=== PATIENT | male | born 1965 | race Caucasian/White ===

== ENCOUNTER 2020-05-23 18:39 | Outpatient (REF) | payer MEDICARE, MEDICAID, SELFPAY | END 2020-05-23 18:40 | disposition home or self-care (01) | LOC: HO.LAB 18:39 | PROVIDERS: PCP Internal Medicine; Visit Provider Internal Medicine | DX: Z20.828 Contact with and (suspected) exposure to other viral communicable diseases (principal) | CPT/HCPCS: 36415; 87635 ==

== ENCOUNTER 2020-07-26 08:32 | Outpatient (REF) | payer MEDICARE, MEDICAID, SELFPAY ==
--- NOTE | 2020-07-26 11:10 | MHC.AU.P13 ---
Adult Audiological Evaluation Date of Visit: 07/26/20 Reason for Appointment: Annual audiological re-evaluation to monitor the status of Mr. Fuentes's hearing loss. He reports that his hearing seems slightly worse. He denies any significant changes to his medical history. Previous Hearing Test Results: [facility] [place], [place], 08/06/2019- Severe sloping to profound and rising to moderate mixed hearing loss bilaterally. Ear History: Recent Ear Drainage: Both Ears Recent Ear Infections: Both Ears Hearing Instrument History- Right Ear: Auger Mill Operator: Phonak Model: Heaven V50-UP Serial Number: [id number] Battery Size: 675 Warranty: Dispensed By: [facility] Date of Fittin01/29/2017 Hearing Instrument History- Left Ear: Auger Mill Operator: Phonak Model: Heaven V50-UP Serial Number: [id number] Battery Size: 675 Warranty: Dispensed By: [facility] Date of Fittin01/29/2017 Otoscopy: Right Ear: [place], bulging TM. Some clear drainage. Left Ear: [place], bulging TM. Some clear drainage. Tympanometry: Right Ear: Non-compliant Middle Ear System (Type B) Left Ear: Non-compliant Middle Ear System (Type B) Hearing Evaluation: Transducer(s) Used: Insert Earphones, Bone Conduction Method: Conventional Audiometry Stimuli Used: Pure Tones Right Ear: Description of Hearing: Moderately severe hearing loss at 250 Hz, sloping to a severe mixed hearing loss at 500 Hz and profound mixed hearing loss from 750-2000 Hz, rising to a severe mixed hearing loss from 4786-6780 Hz, a moderately severe hearing loss at 6000 Hz, and a moderate hearing loss at 8000 Hz. Left Ear: Description of Hearing: Severe mixed hearing loss at 250-500 Hz, sloping to a profound mixed hearing loss from 750-4000 Hz, rising to a moderately severe hearing loss at 6000 Hz, and a moderate hearing loss at 8000 Hz. Speech Recognition Threshold (SRT): Method Used: Monitored Live Voice Stimuli Used: Spondee Words Right Ear: 75 dBHL Left Ear: 85 dBHL Word Discrimination: Method: Recorded Lists Word Lists Used: NU-6 Right Ear: 80% at 105 dBHL Left Ear: 76% at 105 dBHL Comparison: Compared to the most recent evaluation: Thresholds have decreased in the left ear. Middle ear dysfunction persists bilaterally. Word discrimination scores have decreased bilaterally. Compared to most recent evaluation: Thresholds have worsened by 10-15 dBHL from 2515-8554 Hz in the left ear. Recommendations: Recommendations: Audiological re-evaluation if changes are noted. Audiological re-evaluation in one year. See Hearing Aid Follow-Up note for more information. Hearing aid(s) reprogrammed with updated test results. Diagnosis: Primary Diagnosis: H90.6 Mixed Hearing Loss, Bilateral Services Performed: Services Performed: Comprehensive Audiological Evaluation (CPT 96622) Tympanometry (CPT 19819) Signature: Provider: Antonella Caldera, CCC-A
== END 2020-07-26 08:33 | disposition home or self-care (01) ==
LOC: HO.SH 08:32
PROVIDERS: Visit Provider Internal Medicine
DX: H90.6 Mixed conductive and sensorineural hearing loss, bilateral (principal)
CPT/HCPCS: 92557; 92567; 92593; 99499; V5266

== ENCOUNTER 2020-09-08 19:54 | Emergency (ER) | payer MEDICARE, MEDICAID, SELFPAY ==
[2020-09-08 20:00] VITALS: BP 110/58; PULSE 75; RESP 14; TEMP 36.4; O2SAT 98
--- NOTE | 2020-09-08 21:01 | PC.NURSE ---
PT TO ED VIA AMBULANCE WITH C/O PULLING OUT G-TUBE MD IN ROOM FOR EVAL. CALLING [facility] FOR DETAILS OF G-TUBE. VS OBTAINED. MD AT BEDSIDE.
--- NOTE | 2020-09-08 21:29 | ED.WOUNDLAC ---
HPI - Wound/Laceration General Chief Complaint: Wound/Laceration <Kiesha Edmonds NP - Last Filed: 09/08/20 22:15> Stated Complaint: Wound <Kiesha Edmonds NP - Last Filed: 09/08/20 22:15> Time Seen by Provider: 09/08/20 21:20 <Kiesha Edmonds NP - Last Filed: 09/08/20 22:15> Source: patient <Kiesha Edmonds NP - Last Filed: 09/08/20 22:15> Mode of arrival: ambulatory <Kiesha Edmonds NP - Last Filed: 09/08/20 22:15> Limitations: no limitations <Kiesha Edmonds NP - Last Filed: 09/08/20 22:15> History of Present Illness HPI narrative: 55-year-old male from a assisted here with left ear pain. The patient tells me that he is wearing his mask for long hours during the day as he is required to wear at the assisted when he is outside in his bedroom. He tells me about 2 months ago he noticed some pain above his left ear. That has continued and now he has a wound which has been there for greater than 1 month. He denies any fevers or chills. He does tell me that he has some drainage from the wound. <Kiesha Edmonds NP - Last Filed: 09/08/20 22:15> Onset (ago): month(s) <Kiesha Edmonds NP - Last Filed: 09/08/20 22:15> Location: other (left ear ) <Kiesha Edmonds NP - Last Filed: 09/08/20 22:15> Patient tetanus UTD: Yes <Kiesha Edmonds NP - Last Filed: 09/08/20 22:15> Associated symptoms: none <Kiesha Edmonds NP - Last Filed: 09/08/20 22:15> Related Data Home Medications: Previous Rx's Medication Instructions Recorded bacitracin 1 appl TOPICAL TID #14 g 09/08/20 cephalexin 500 mg PO Q8H #21 cap 09/08/20 <Kiesha Edmonds NP - Last Filed: 09/08/20 22:15> Allergies/Adverse Reactions: Allergies Allergy/AdvReac Type Severity Reaction Status Date / Time No Known Allergies Allergy Verified 09/08/20 21:29 <Kiesha Edmonds NP - Last Filed: 09/08/20 22:15> Review of Systems Review of Systems: Yes all other systems are reviewed and are negative <Kiesha Edmonds NP - Last Filed: 09/08/20 22:15> Constitutional: Constitutional: Reports no additional constitutional complaints, Denies body ache(s), Denies chills, Denies fever(s), Denies headache(s) and Denies weakness <Kiesha Edmonds NP - Last Filed: 09/08/20 22:15> Eyes: Eyes: Reports no additional eye complaints and Denies change in vision <Kiesha Edmonds NP - Last Filed: 09/08/20 22:15> ENT: Reports system reviewed and no additional complaints, except as documented, Denies dizziness, Denies headache(s), Denies nasal congestion, Denies nasal discharge and Denies neck pain <Kiesha Edmonds NP - Last Filed: 09/08/20 22:15> Cardiovascular: Cardiovascular: Reports no additional cardiovascular complaints, Denies chest pain, Denies leg edema and Denies dyspnea <Kiesha Edmonds NP - Last Filed: 09/08/20 22:15> Respiratory: Respiratory: Reports no additional respiratory complaints, Denies cough and Denies dyspnea <Kiesha Edmonds NP - Last Filed: 09/08/20 22:15> Gastrointestinal: Gastrointestinal: Reports no additional gastrointestinal complaints, Denies abdominal pain, Denies diarrhea, Denies nausea and Denies vomiting <Kiesha Edmonds NP - Last Filed: 09/08/20 22:15> Genitourinary: Genitourinary: Denies urinary incontinence <Kiesha Edmonds NP - Last Filed: 09/08/20 22:15> Musculoskeletal: Musculoskeletal: Reports no additional musculoskeletal complaints, Denies back pain, Denies arthralgias, Denies joint swelling, Denies neck pain, Denies numbness and Denies tingling <Kiesha Edmonds NP - Last Filed: 09/08/20 22:15> Integumentary/Breasts: Skin/Breast: Reports system reviewed and no additional complaints, except as docu, Denies rash and Reports wounds <Kiesha Edmonds NP - Last Filed: 09/08/20 22:15> Neurologic: Reports system reviewed and no additional complaints, except as documented, Denies Abnormal speech present, Denies dizziness, Denies headache(s), Denies numbness, Denies tingling and Denies weakness <Kiesha Edmonds NP - Last Filed: 09/08/20 22:15> [facility] Past Medical History Attestation statement: The following information was validated with the patient. <Kiesha Edmonds NP - Last Filed: 09/08/20 22:15> Source: old records reviewed and nursing notes reviewed <Kiesha Edmonds NP - Last Filed: 09/08/20 22:15> Social History Social History: Social History Advance Directives: No Advance Directives Information Provided: No <Kiesha Edmonds NP - Last Filed: 09/08/20 22:15> Physical Exam Vital Signs: Vital Signs: Last Vital Signs Temp 97.6 F 09/08/20 20:00 Pulse 75 09/08/20 20:00 Resp 14 09/08/20 20:00 BP 110/58 L 09/08/20 20:00 Pulse Ox 98 09/08/20 20:00 <Kiesha Edmonds NP - Last Filed: 09/08/20 22:15> Vital Signs: Last Vital Signs Temp 97.6 F 09/08/20 20:00 Pulse 75 09/08/20 20:00 Resp 14 09/08/20 20:00 BP 110/58 L 09/08/20 20:00 Pulse Ox 98 09/08/20 20:00 <Yariel Childs MD - Last Filed: 09/19/20 16:52> Const: General: cooperative, healthy appearing, comfortable and no acute distress <Kiesha Edmonds NP - Last Filed: 09/08/20 22:15> Orientation/consciousness: patient oriented x3 <Kiesha Edmonds NP - Last Filed: 09/08/20 22:15> Limitations: no limitations <Kiesha Edmonds NP - Last Filed: 09/08/20 22:15> HENMT: Other: Just above the helix where the ear meets the side of the head there is an open area with some serous drainage and or purulent drainage at the site. There is mild erythema and tenderness. No tracking or fluctuance or induration. <Kiesha Edmonds NP - Last Filed: 09/08/20 22:15> Head: Yes normal to inspection <Kiesha Edmonds NP - Last Filed: 09/08/20 22:15> Ears: hearing grossly normal bilaterally <Kiesha Edmonds NP - Last Filed: 09/08/20 22:15> General nose exam: Normal external nose present <Kiesha Edmonds NP - Last Filed: 09/08/20 22:15> Face and sinus: Yes normal facial exam <Kiesha Edmonds NP - Last Filed: 09/08/20 22:15> Mouth: Normal oral and palatal mucosa present <Kiesha Edmonds NP - Last Filed: 09/08/20 22:15> Throat: Yes posterior oropharynx normal <Kiesha Edmonds NP - Last Filed: 09/08/20 22:15> Eyes: General: appearance normal, both eyes and all related structures <Kiesha Edmonds NP - Last Filed: 09/08/20 22:15> Pupils: Equal, round and reactive pupils present <Kiesha Edmonds NP - Last Filed: 09/08/20 22:15> Neck: Neck: Yes normal visual inspection <Kiesha Edmonds NP - Last Filed: 09/08/20 22:15> Chest: Chest palpation & inspection: normal inspection of the chest <Kiesha Edmonds NP - Last Filed: 09/08/20 22:15> Resp: Effort & Inspection: normal respiratory effort <Kiesha Edmonds NP - Last Filed: 09/08/20 22:15> Auscultation: clear to auscultation bilaterally <Kiesha Edmonds NP - Last Filed: 09/08/20 22:15> Cardio: Rate: regular rate <Kiesha Edmonds NP - Last Filed: 09/08/20 22:15> Rhythm: regular rhythm <Kiesha Edmonds NP - Last Filed: 09/08/20 22:15> Peripheral pulses: Peripheral pulses 2+ throughout <Kiesha Edmonds SOCCER REFEREE - Last Filed: 09/08/20 22:15> GI: Inspection: Yes normal to inspection <Kiesha Edmonds SOCCER REFEREE - Last Filed: 09/08/20 22:15> Palpation (GI): Soft to palpation and nontender <Kiesha Edmonds NP - Last Filed: 09/08/20 22:15> Auscultation: normal bowel sounds <Kiesha Edmonds SOCCER REFEREE - Last Filed: 09/08/20 22:15> Back/Spine/Pelvis: Thoracic/Lumbar Spine: thoracic and lumbar spine normal to inspection <Kiesha Edmonds SOCCER REFEREE - Last Filed: 09/08/20 22:15> Skin: General skin exam: no rashes or lesions noted <Kiesha Edmonds NP - Last Filed: 09/08/20 22:15> Neuro: General: patient oriented x3, no focal motor deficits and normal sensation to monofilament <Kiesha Edmonds SOCCER REFEREE - Last Filed: 09/08/20 22:15> Cranial nerves: Yes Equal, round and reactive pupils present <Kiesha Edmonds SOCCER REFEREE - Last Filed: 09/08/20 22:15> Cognition (Neuro): normal cognition <Kiesha Edmonds SOCCER REFEREE - Last Filed: 09/08/20 22:15> Speech: No Abnormal speech present <Kiesha Edmonds NP - Last Filed: 09/08/20 22:15> Gait exam (Neuro): Normal gait present <Kiseha Edmonds NP - Last Filed: 09/08/20 22:15> Motor exam (neuro): 5/5 motor strength present throughout <Kiesha Edmonds SOCCER REFEREE - Last Filed: 09/08/20 22:15> Extrem: General: Yes normal to inspection <Kiesha Edmonds NP - Last Filed: 09/08/20 22:15> Course Course Course Narrative: Patient has a draining wound at the site of where his mask meets his posterior ear. There is some local drainage, tenderness and erythema. Staff was concerned that the patient would need closure of the wound with sutures. However, the patient tells me he has had this wound for weeks to months and so closure of this infected wound is not indicated. Start patient on topical antibiotics and oral antibiotics. Reviewed worrisome signs and symptoms and when to return to the emergency department. Comfortable discharge home. <Kiesha Edmonds NP - Last Filed: 09/08/20 22:15> I have reviewed the chart <Yariel Childs MD - Last Filed: 09/19/20 16:52> Discharge Plan Discharge Clinical Impression: Cellulitis <Kiesha Edmonds NP - Last Filed: 09/08/20 22:15> Patient Disposition: Home, Self-Care <Kiesha Edmonds NP - Last Filed: 09/08/20 22:15> Instructions: Cellulitis (ED) <Kiesha Edmonds NP - Last Filed: 09/08/20 22:15> Additional Instructions: Apply topical antibiotic ointment Take the antibiotic until resolved. Avoid using masks that rub on this area We will not close a wound that has been open this long. It will heal on its own <Kiesha Edmonds NP - Last Filed: 09/08/20 22:15> Prescriptions: New bacitracin 500 unit/gram ointment 1 appl topical TID Qty: 14 RF: 0 cephalexin 500 mg capsule 500 mg PO Q8H Qty: 21 RF: 0 <Kiesha Edmonds NP - Last Filed: 09/08/20 22:15> Referrals: Physician,Unknown [Primary Care Provider] - 2 days <Kiesha Edmonds NP - Last Filed: 09/08/20 22:15> Discharge Date/Time: 09/08/20 21:56 <Kiesha Edmonds NP - Last Filed: 09/08/20 22:15>
--- NOTE | 2020-09-08 21:48 | PC.NURSE ---
spoke with Pedro for update. [phone]. pt getting d/c at this time.
== END 2020-09-08 21:56 | disposition home or self-care (01) ==
LOC: HO.ED 21:34
PROVIDERS: Emergency Provider Emergency Medicine
DX: H60.12 Cellulitis of left external ear (principal); H92.02 Otalgia, left ear; Z79.899 Other long term (current) drug therapy
CPT/HCPCS: 99282; 99283

== ENCOUNTER 2020-09-29 11:21 | Outpatient (REF) | payer MEDICARE, MEDICAID, SELFPAY | END 2020-09-29 11:22 | disposition home or self-care (01) | LOC: HO.HAP 11:21 | PROVIDERS: Visit Provider Internal Medicine | DX: Z13.89 Encounter for screening for other disorder (principal) ==

== ENCOUNTER 2020-10-13 15:09 | Outpatient (REF) | payer MEDICARE, MEDICAID, SELFPAY | END 2020-10-13 15:10 | disposition home or self-care (01) | LOC: HO.HAP 15:09 | PROVIDERS: Visit Provider Internal Medicine | DX: Z46.1 Encounter for fitting and adjustment of hearing aid (principal); H90.3 Sensorineural hearing loss, bilateral | CPT/HCPCS: 92592; 99499 ==

== ENCOUNTER 2020-10-20 09:53 | Outpatient (REF) | payer MEDICARE, MEDICAID, SELFPAY | END 2020-10-20 09:54 | disposition home or self-care (01) | LOC: HO.HAP 09:53 | PROVIDERS: Visit Provider Internal Medicine | DX: Z46.1 Encounter for fitting and adjustment of hearing aid (principal) | CPT/HCPCS: V5014; V5266 ==

== ENCOUNTER 2021-03-16 10:44 | Outpatient (REF) | payer MEDICARE, MEDICAID, SELFPAY | END 2021-03-16 10:45 | disposition home or self-care (01) | LOC: HO.HAP 10:44 | PROVIDERS: Visit Provider Internal Medicine | DX: Z46.1 Encounter for fitting and adjustment of hearing aid (principal); H90.6 Mixed conductive and sensorineural hearing loss, bilateral | CPT/HCPCS: 92592 ==

== ENCOUNTER 2021-03-16 15:29 | Outpatient (REF) | payer SELFPAY | END 2021-03-16 15:30 | disposition home or self-care (01) | LOC: HO.HAP 15:29 | PROVIDERS: Visit Provider Internal Medicine | DX: Z46.1 Encounter for fitting and adjustment of hearing aid (principal); H90.6 Mixed conductive and sensorineural hearing loss, bilateral | CPT/HCPCS: V5267 ==

== ENCOUNTER 2021-05-25 08:20 | Emergency (ER) | payer MEDICARE, MEDICAID, SELFPAY ==
[2021-05-25 08:27] VITALS: BP 141/75; PULSE 66; RESP 18; TEMP 36.4; O2SAT 100; BMI 27.5
--- NOTE | 2021-05-25 08:37 | ECG_ITS ---
Test Reason : GENERAL MEDICINE Blood Pressure : / mmHG Vent. Rate : 067 BPM Atrial Rate : 067 BPM P-R Int : 188 ms QRS Dur : 094 ms QT Int : 382 ms P-R-T Axes : 067 058 032 degrees QTc Int : 403 ms Normal sinus rhythm Normal ECG No previous ECGs available Referred By: Kenyetta Reveles Electronically Signed By:MARTHA PINK
--- NOTE | 2021-05-25 08:38 | ED.GENADULT ---
HPI - General Adult General Chief complaint: General Medical Stated complaint: WEAKNESS W/2 FALLS THIS AM, NO C/O PAIN/INJURY Time Seen by Provider: 05/25/21 08:37 Source: patient and EMS Mode of arrival: EMS Limitations: no limitations History of Present Illness HPI narrative: 56 year-old male with history of cognitive delay, active smoker, COPD, GERD, presents to the ER via EMS with generalized weakness and a fall from his detention. History is obtained from the patient & the group sales coordinator. Every morning the patient goes for a walk to the store. This morning when he got back he went to step up the stairs and missed and fell backwards. He reports falling onto his back. He did not hit his head or lose consciousness. He is not on blood thinners. He denies any dizziness, lightheadedness or chest pain prior to the fall. When he got up and went to go sit inside the house the group sales coordinator reported he was still unsteady. He denied any injuries or pain. They brought him to the ER for further evaluation. The patient feels much better at this time and offers no complaints. lay out worker reports he has been losing a lot of weight lately. He had a normal colonoscopy. His p.o. intake is adequate. MD complaint: fall Onset (ago): hour(s) Location: back Radiation: non-radiation Pain Consistency: now resolved Associated symptoms: weakness (Generalized) Treatments prior to arrival: none Related Data Home Medications Medication Instructions Recorded Confirmed topiramate 100 mg tablet (Topamax) 100 mg PO DAILY 05/25/21 05/25/21 Previous Rx's Medication Instructions Recorded bacitracin 500 unit/gram topical 1 appl TOPICAL TID #14 g 09/08/20 ointment cephalexin 500 mg capsule 500 mg PO Q8H #21 cap 09/08/20 Allergies Allergy/AdvReac Type Severity Reaction Status Date / Time No Known Allergies Allergy Verified 09/08/20 21:29 Review of Systems Review of Systems: Constitutional: No Fever, No Chills ENT/Mouth: No sore throat, No Rhinorrhea, No Swallowing Difficulty Eyes: No vision changes Cardiovascular: No Chest Pain, No SOB Respiratory: No Cough, No Sputum Gastrointestinal: No Nausea, No Vomiting, No Diarrhea, No abdominal Pain Genitourinary: No Dysuria, No Urinary Frequency, No Hematuria Musculoskeletal: No joint pain, No Myalgias Skin: No Skin Lesions, No rash Neuro: + Weakness, No Numbness, No Dizziness, No Headache Psych: No Anxiety/Panic, No Depression Heme/Lymph: No Bruising, No Lymphadenopathy Endocrine: No Polyuria, No [facility] Social History Social History Patient Tobacco Use Status: Current everyday Tobacco user Advance Directives: No Advance Directives Information Provided: No Physical Exam Vital Signs: Vital Signs: Last Vital Signs Temp 96.8 F 05/25/21 10:50 Pulse 69 05/25/21 10:56 Resp 16 05/25/21 10:50 BP 142/78 H 05/25/21 10:56 Pulse Ox 98 05/25/21 10:50 Body Mass Index 27.5 Appearance: Alert. Oriented X3. No acute distress. Eyes: Pupils equal, round and reactive to light. ENT: Pharynx normal. Neck: Normal inspection. Neck supple. CVS: Normal heart rate and rhythm. Pulses normal. Respiratory: No respiratory distress. Breath sounds normal. Abdomen: Soft and nontender. +BS x4. Back: Normal to inspection, no ecchymosis, no abrasions, no signs of trauma, nontender throughout Skin: Skin warm and dry. Normal skin color. Normal skin turgor. No rashes. Extremities: No lower extremity edema. Atraumatic x4. Neuro: Oriented X 3. No motor deficit. No sensory deficit. Cognitive delay. Nonfocal. Equal and symmetrical strength throughout. Speech is normal. No facial droop noted. Ambulates with steady gait Course Course Course Narrative: 56-year-old male presenting to the ER with generalized weakness and fall. He reports the fall was witnessed and he did not hit his head. The fall sounds mechanical, that he missed a step when walking into the home. He has no signs of trauma on exam. His neurologic exam is nonfocal. Doubt TIA or CVA. Will get EKG lab workup and orthostatic vital signs. He offers no complaints at this time Reevaluation(s) Reevaluation #1: EKG is normal. Lab workup is unremarkable. Orthostatic vital signs are negative. Patient would like to be discharged home. At this time patient is stable for discharge home with follow-up with his PCP. Medical Decision Making Lab Data Result diagrams: 05/25/21 09:22 05/25/21 09:22 Labs: Lab Results 05/25/21 05/25/21 05/25/21 Range/Units 09:21 09:22 09:22 WBC 7.7 (4.8-10.8) X10*3/uL RBC 4.55 L (4.60-5.80) X10*6/uL Hgb 13.7 L (14.0-18.0) g/dl Hct 40.6 L (42-52) % MCV 89.2 (80-98) fL MCH 30.1 (27.0-33.0) pg MCHC 33.7 (31.0-36.0) g/dl RDW 12.0 (11.0-16.0) % Plt Count 219 (160-400) X10*3/uL MPV 10.0 (9.4-12.4) fL Immature Gran % (Auto) 0.3 (0.0-0.4) % Neut % (Auto) 71.2 (45-73) % Lymph % (Auto) 15.8 L (20-40) % [place] % (Auto) 9.2 (2-11) % Eos % (Auto) 3.1 (0-4) % Baso % (Auto) 0.4 (0-2) % Lymph # (Auto) 1.2 (1.2-4.9) X10*3/uL [place] # (Auto) 0.7 (0.1-1.2) X10*3/uL Eos # (Auto) 0.2 (0.0-0.4) X10*3/uL Baso # (Auto) 0.0 (0.0-0.2) X10*3/uL Abs Immat Gran (auto) 0.02 (0.00-0.03) X10*3/uL Absolute Neuts (auto) 5.5 (2.0-8.3) X10*3/uL Absolute Nucleated RBC 0.000 (0.0-0.012) X10*3/uL Nucleated RBC % (auto) 0.0 (0.0-0.2) /100WBC Sodium 143 (135-145) mmol/L Potassium 4.0 (3.3-5.1) mmol/L Chloride 111 H (96-108) mmol/L Carbon Dioxide 27 (22-29) mmol/L Anion Gap 9 L (12-20) BUN 15 (9-16) mg/dL Creatinine 0.92 (0.5-1.4) mg/dL Estim Creat Clear Calc 82.8 Estimated GFR > 60 Random Glucose 86 (60-115) mg/dL Lactic Acid (0.5-2.0) mmol/L Calcium 9.3 (8.4-10.2) mg/dL Magnesium 2.2 (1.6-2.6) mg/dL Total Bilirubin 0.3 (0.0-1.0) mg/dL Direct Bilirubin 0.2 (0.0-0.5) mg/dL AST 16 (5-37) U/L ALT 13 (0-40) U/L Alkaline Phosphatase 76 (39-117) U/L Total Protein 6.4 L (6.5-8.0) g/dL Albumin 4.1 (3.5-5.0) g/dL Urine Color Urine Appearance Urine pH (5.0-8.0) Ur Specific [place] (1.005-1.025) Urine Protein (NEG-TRACE) MG/DL Urine Glucose (UA) (NEG) MG/DL Urine Ketones (NEG) MG/DL Urine Blood (NEG) Urine Nitrite (NEG) Ur Leukocyte Esterase (NEG) Urine Opiates Screen (Not Detect) Urine Fentanyl Screen (Not Detect) Ur Barbiturates Screen (Not Detect) Ur Phencyclidine Scrn (Not Detect) Ur Amphetamines Screen (Not Detect) U Benzodiazepines Scrn (Not Detect) Urine Cocaine Screen (Not Detect) U Marijuana (THC) Screen (Not Detect) Ethyl Alcohol mg/dL COVID-19 (EDGAR) Negative (Negative) COVID-19 Clin Com See Note 05/25/21 05/25/21 05/25/21 Range/Units 09:22 09:22 10:07 WBC (4.8-10.8) X10*3/uL RBC (4.60-5.80) X10*6/uL Hgb (14.0-18.0) g/dl Hct (42-52) % MCV (80-98) fL MCH (27.0-33.0) pg MCHC (31.0-36.0) g/dl RDW (11.0-16.0) % Plt Count (160-400) X10*3/uL MPV (9.4-12.4) fL Immature Gran % (Auto) (0.0-0.4) % Neut % (Auto) (45-73) % Lymph % (Auto) (20-40) % [place] % (Auto) (2-11) % Eos % (Auto) (0-4) % Baso % (Auto) (0-2) % Lymph # (Auto) (1.2-4.9) X10*3/uL [place] # (Auto) (0.1-1.2) X10*3/uL Eos # (Auto) (0.0-0.4) X10*3/uL Baso # (Auto) (0.0-0.2) X10*3/uL Abs Immat Gran (auto) (0.00-0.03) X10*3/uL Absolute Neuts (auto) (2.0-8.3) X10*3/uL Absolute Nucleated RBC (0.0-0.012) X10*3/uL Nucleated RBC % (auto) (0.0-0.2) /100WBC Sodium (135-145) mmol/L Potassium (3.3-5.1) mmol/L Chloride (96-108) mmol/L Carbon Dioxide (22-29) mmol/L Anion Gap (12-20) BUN (9-16) mg/dL Creatinine (0.5-1.4) mg/dL Estim Creat Clear Calc Estimated GFR Random Glucose (60-115) mg/dL Lactic Acid 1.3 (0.5-2.0) mmol/L Calcium (8.4-10.2) mg/dL Magnesium (1.6-2.6) mg/dL Total Bilirubin (0.0-1.0) mg/dL Direct Bilirubin (0.0-0.5) mg/dL AST (5-37) U/L ALT (0-40) U/L Alkaline Phosphatase (39-117) U/L Total Protein (6.5-8.0) g/dL Albumin (3.5-5.0) g/dL Urine Color YELLOW Urine Appearance CLEAR Urine pH 6.0 (5.0-8.0) Ur Specific [place] <= 1.005 (1.005-1.025) Urine Protein NEG (NEG-TRACE) MG/DL Urine Glucose (UA) NEG (NEG) MG/DL Urine Ketones NEG (NEG) MG/DL Urine Blood NEG (NEG) Urine Nitrite NEG (NEG) Ur Leukocyte Esterase NEG (NEG) Urine Opiates Screen (Not Detect) Urine Fentanyl Screen (Not Detect) Ur Barbiturates Screen (Not Detect) Ur Phencyclidine Scrn (Not Detect) Ur Amphetamines Screen (Not Detect) U Benzodiazepines Scrn (Not Detect) Urine Cocaine Screen (Not Detect) U Marijuana (THC) Screen (Not Detect) Ethyl Alcohol < 10 mg/dL COVID-19 (EDGAR) (Negative) COVID-19 Clin Com 05/25/21 Range/Units 10:07 WBC (4.8-10.8) X10*3/uL RBC (4.60-5.80) X10*6/uL Hgb (14.0-18.0) g/dl Hct (42-52) % MCV (80-98) fL MCH (27.0-33.0) pg MCHC (31.0-36.0) g/dl RDW (11.0-16.0) % Plt Count (160-400) X10*3/uL MPV (9.4-12.4) fL Immature Gran % (Auto) (0.0-0.4) % Neut % (Auto) (45-73) % Lymph % (Auto) (20-40) % [place] % (Auto) (2-11) % Eos % (Auto) (0-4) % Baso % (Auto) (0-2) % Lymph # (Auto) (1.2-4.9) X10*3/uL [place] # (Auto) (0.1-1.2) X10*3/uL Eos # (Auto) (0.0-0.4) X10*3/uL Baso # (Auto) (0.0-0.2) X10*3/uL Abs Immat Gran (auto) (0.00-0.03) X10*3/uL Absolute Neuts (auto) (2.0-8.3) X10*3/uL Absolute Nucleated RBC (0.0-0.012) X10*3/uL Nucleated RBC % (auto) (0.0-0.2) /100WBC Sodium (135-145) mmol/L Potassium (3.3-5.1) mmol/L Chloride (96-108) mmol/L Carbon Dioxide (22-29) mmol/L Anion Gap (12-20) BUN (9-16) mg/dL Creatinine (0.5-1.4) mg/dL Estim Creat Clear Calc Estimated GFR Random Glucose (60-115) mg/dL Lactic Acid (0.5-2.0) mmol/L Calcium (8.4-10.2) mg/dL Magnesium (1.6-2.6) mg/dL Total Bilirubin (0.0-1.0) mg/dL Direct Bilirubin (0.0-0.5) mg/dL AST (5-37) U/L ALT (0-40) U/L Alkaline Phosphatase (39-117) U/L Total Protein (6.5-8.0) g/dL Albumin (3.5-5.0) g/dL Urine Color Urine Appearance Urine pH (5.0-8.0) Ur Specific [place] (1.005-1.025) Urine Protein (NEG-TRACE) MG/DL Urine Glucose (UA) (NEG) MG/DL Urine Ketones (NEG) MG/DL Urine Blood (NEG) Urine Nitrite (NEG) Ur Leukocyte Esterase (NEG) Urine Opiates Screen Not Detected (Not Detect) Urine Fentanyl Screen Not Detected (Not Detect) Ur Barbiturates Screen Not Detected (Not Detect) Ur Phencyclidine Scrn Not Detected (Not Detect) Ur Amphetamines Screen Not Detected (Not Detect) U Benzodiazepines Scrn Not Detected (Not Detect) Urine Cocaine Screen Not Detected (Not Detect) U Marijuana (THC) Screen Not Detected (Not Detect) Ethyl Alcohol mg/dL COVID-19 (EDGAR) (Negative) COVID-19 Clin Com ECG Data Attestation: I personally reviewed and interpreted this ECG as follows: Prior ECG tracings: not available for review Interpretation: Normal sinus rhythm, 67 beats per minute, RI interval is normal at 188 MS, normal QTC, no ST segment elevations or depressions. Normal EKG. Critical Care Time Critical Care Time Critical Care Time: No Discharge Plan Discharge Clinical Impression: Fall Qualifiers: Encounter type: initial encounter Qualified Code(s): W19.XXXA - Unspecified fall, initial encounter Patient Disposition: Home, Self-Care Instructions: Fall Prevention (ED) Additional Instructions: Your workup today was unremarkable. Follow-up with your doctor. If you develop new or worsening symptoms call 911 or come back to the ER for further evaluation. Prescriptions: No Action bacitracin 500 unit/gram ointment 1 appl topical TID Qty: 14 RF: 0 cephalexin 500 mg capsule 500 mg PO Q8H Qty: 21 RF: 0 topiramate [Topamax] 100 mg Tablet 100 mg PO DAILY RF: 0 Interventions: ED Discharge Assessment Last Done: 05/25/21 11:10 Discharge Date/Time: 05/25/21 11:16
[2021-05-25 08:47] VITALS: BP 145/84; PULSE 68; RESP 16; TEMP 36.8; O2SAT 99
[2021-05-25] MEDS: 0.9 % Sodium Chloride 1,000 ML 999 ML IVCONT (09:08)
[2021-05-25 09:33] LABS: MANUAL DIFF FLAG NO
[2021-05-25 09:35] LABS: Basophils Percent Auto 0.4 % (0-2); Eosinophils Absolute Auto 0.2 X10*3/uL (0.0-0.4); Eosinophils Percent Auto 3.1 % (0-4); Hematocrit 40.6 % (42-52); Hemoglobin 13.7 g/dl (14.0-18.0); Imm Gran Abs Auto 0.02 X10*3/uL (0.00-0.03); Imm Gran Pct Auto 0.3 % (0.0-0.4); Lymphocytes Absolute Auto 1.2 X10*3/uL (1.2-4.9); Lymphocytes Percent Auto 15.8 % (20-40); Mean Corpuscular HGB Conc 33.7 g/dl (31.0-36.0); Mean Corpuscular Hemoglobin 30.1 pg (27.0-33.0); Mean Corpuscular Volume 89.2 fL (80-98); Monocytes Absolute Auto 0.7 X10*3/uL (0.1-1.2); Monocytes Percent Auto 9.2 % (2-11); Neutrophils Absolute Auto 5.5 X10*3/uL (2.0-8.3); Neutrophils Percent Auto 71.2 % (45-73); Platelet Count 219 X10*3/uL (160-400); Red Blood Count 4.55 X10*6/uL (4.60-5.80); White Blood Count 7.7 X10*3/uL (4.8-10.8)
[2021-05-25 09:47] LABS: Lactic Acid 1.3 mmol/L (0.5-2.0)
[2021-05-25 09:50] LABS: Ethanol < 10 mg/dL
[2021-05-25 10:02] LABS: COVID-19 Test Negative (Negative); IDNOW Serial# 9DD0AD1C
[2021-05-25 10:03] LABS: Alanine Aminotransferase 13 U/L (0-40); Albumin Level 4.1 g/dL (3.5-5.0); Alkaline Phosphatase 76 U/L (39-117); Anion Gap 9 (12-20); Aspartate Amino Transferase 16 U/L (5-37); Bilirubin Direct 0.2 mg/dL (0.0-0.5); Bilirubin Total 0.3 mg/dL (0.0-1.0); Blood Urea Nitrogen 15 mg/dL (9-16); Calcium 9.3 mg/dL (8.4-10.2); Carbon Dioxide 27 mmol/L (22-29); Chloride 111 mmol/L (96-108); Creatinine Clr Calc Pharmacy 82.8; Estimated Glomerular Filt Rate > 60; Glucose Random 86 mg/dL (60-115); Magnesium 2.2 mg/dL (1.6-2.6); Sodium 143 mmol/L (135-145); Total Protein 6.4 g/dL (6.5-8.0)
[2021-05-25 10:20] LABS: Appearance Urine CLEAR; Color Urine YELLOW; Glucose Urine UA NEG (NEG); Leukocyte Esterase Urine NEG (NEG); Nitrite Urine NEG (NEG); Specific Gravity - Urine <= 1.005 (1.005-1.025); Urine Blood NEG (NEG); Urine Ketones NEG (NEG); Urine Protein NEG (NEG-TRACE)
[2021-05-25 10:32] LABS: Amphetamine Screen Urine Not Detected (Not Detect); Barbiturates, Urine Not Detected (Not Detect); Benzodiazepines Screen Urine Not Detected (Not Detect); Cannabinoid Screen Urine Not Detected (Not Detect); Cocaine Screen Urine Not Detected (Not Detect); Fentanyl, urine Not Detected (Not Detect); Opiate Screen Urine Not Detected (Not Detect); Phencyclidine Screen Urine Not Detected (Not Detect)
[2021-05-25 10:50] VITALS: BP 141/71; PULSE 57; RESP 16; TEMP 36; O2SAT 98
[2021-05-25 10:51] VITALS: BP 129/74; PULSE 69
[2021-05-25 10:55] VITALS: BP 153/79; PULSE 62
[2021-05-25 10:56] VITALS: BP 142/78; PULSE 69
== END 2021-05-25 11:16 | disposition home or self-care (01) ==
LOC: HO.ED 11:14
PROVIDERS: Physician Assistant; Emergency Provider Emergency Medicine; PCP Internal Medicine
DX: R53.1 Weakness (principal); J44.9 Chronic obstructive pulmonary disease, unspecified; F17.200 Nicotine dependence, unspecified, uncomplicated; Z79.899 Other long term (current) drug therapy; Z91.81 History of falling; Z20.822 Contact with and (suspected) exposure to COVID-19
CPT/HCPCS: 36415; 80048; 80076; 80307; 81003; 82077; 83605; 83735; 85025; 87635; 93005; 96360; 99285

== ENCOUNTER 2021-08-24 08:47 | Outpatient (REF) | payer MEDICARE, MEDICAID, SELFPAY ==
--- NOTE | 2021-08-25 11:43 | MHC.AU.AHA ---
Adult Audiological Evaluation Date of Visit: 08/24/21 Reason for Appointment: Long-standing history of asymmetrical mixed hearing loss (left ear worse) and middle ear dysfunction. Patient arrives today to determine if there has been a change in his hearing. Previous Hearing Test Results: At this clinic on 07/26/2020- Severe sloping to profound and rising to moderate mixed hearing loss bilaterally, worse in the left ear Medical History: Medical History: Developmental Disorder/Delay,Asthma Hearing Instrument History- Right Ear: Campus Rep: Phonak Model: Heaven V50-UP Serial Number: [id number] Battery Size: 675 Repair Warranty: Loss and Damage Warranty: Dispensed By: [facility] Date of Fittin01/29/2017 Hearing Instrument History- Left Ear: Campus Rep: Blinpickak Model: Heaven V50-UP Serial Number: [id number] Battery Size: 675 Warranty: Loss and Damage Warranty: Dispensed By: [facility] Date of Fittin01/29/2017 Otoscopy: Right Ear: Minimal cerumen Left Ear: Minimal cerumen Hearing Evaluation: Transducer(s) Used: Insert Earphones Method: Conventional Audiometry Stimuli Used: Pure Tones Right Ear: Description of Hearing: Severe sloping to profound and rising to moderate/moderately-severe mixed hearing loss Left Ear: Description of Hearing: Severe sloping to profound and rising to moderate/moderately-severe mixed hearing loss Speech Recognition Threshold (SRT): Method Used: Monitored Live Voice Stimuli Used: Spondee Words Right Ear: 70 dBHL Left Ear: 75 dBHL Word Discrimination: Method: Recorded Lists Word Lists Used: W-22 Right Ear: 88% at 105 dBHl Left Ear: 72% at 105 dBHL Comparison: Compared to most recent evaluation: Slight decrease in thresholds bilaterally Recommendations: Audiological re-evaluation in one year. Patient is eligible for new hearing aids after January 2022. A hearing aid evaluation was scheduled for February 2022, where we will discuss new hearing aids and perform a quick pure tone check. Diagnosis: Primary Diagnosis: H90.6 Mixed Hearing Loss, Bilateral Signature: Provider: Antonella Zaman, [facility]
--- NOTE | 2021-08-25 11:44 | MHC.AU.HFU ---
Hearing Instrument Follow-Up- Binaural Date of Visit: 08/24/21 Right Ear: Infusion Nurse: Phonak Model: Heaven V50-UP Serial Number: [id number] Repair Warranty: Loss and Damage Warranty: Battery Size: 675 Tubing: Tube lock Type of Mold: Standard shell mold Type of Wax Guard: Dispensed By: [facility] Date of Fittin01/29/2017 Left Ear: Infusion Nurse: Phonak Model: Heaven V50-UP Serial Number: [id number] Repair Warranty: Loss and Damage Warranty: Battery Size: 675 Tubing: tube lock Type of Mold: Standard shell mold Type of Wax Guard: Dispensed By: [facility] Date of Fittin01/29/2017 Follow-Up Summary: Patient was seen for audiological re-evaluation (see separate report for details). He only brought the right hearing aid with him, which he reported was not working well. The tubing appeared to be clogged by a piece of cerumen that was around the mid-point of the tube. Cleaned the mold, replaced the tubing. Cleaned hearing aid and battery compartment. Hearing aid was amplifying clearly after maintenance. Patient inquired when he would be eligible for new hearing aids. His current hearing aids were obtained from [facility] on 01/29/2017. A hearing aid evaluation was scheduled for February 2022, when he will be eligible to discuss new instruments. A quick pure tone check will also be performed at that time. Recommendations: Recommendations: Hearing instrument follow-up or maintenance as needed. Diagnosis Code(s): Primary Diagnosis: H90.6 Mixed Hearing Loss, Bilateral Signature: Provider: Antonella Zaman, [facility]
== END 2021-08-24 08:48 | disposition home or self-care (01) ==
LOC: HO.SH 08:47
PROVIDERS: Visit Provider Internal Medicine
DX: Z46.1 Encounter for fitting and adjustment of hearing aid (principal); H90.6 Mixed conductive and sensorineural hearing loss, bilateral
CPT/HCPCS: 92557; 92592

== ENCOUNTER 2021-09-21 11:02 | Outpatient (REF) | payer MEDICARE, MEDICAID, SELFPAY ==
--- NOTE | 2021-09-21 11:11 | MHC.AU.P13 ---
Hearing Instrument Problem Date of Visit: 09/21/21 Right Ear: Campus Dean: Phonak Model: Heaven V50-UP Serial Number: [id number] Repair Warranty: Loss and Damage Warranty: Battery Size: 675 Tubing: Tube lock Type of Mold: Standard shell mold Dispensed By: [facility] Date of Fittin01/29/2017 Left Ear: Campus Dean: Phonak Model: Heaven V50-UP Serial Number: [id number] Repair Warranty: Loss and Damage Warranty: Battery Size: 675 Tubing: tube lock Type of Mold: Standard shell mold Dispensed By: [facility] Date of Fittin01/29/2017 Follow-Up Summary: Hearing aids brought in - tubings clogged. Hearing aids and earmolds cleaned and retubed - both now amplifying clearly. Recommendations: Recommendations: Hearing instrument follow-up or maintenance as needed. Diagnosis Code(s): Primary Diagnosis: H90.6 Mixed Hearing Loss, Bilateral Signature: Provider: BRITTANI Concepcion-
== END 2021-09-21 11:03 | disposition home or self-care (01) ==
LOC: HO.HAP 11:02
PROVIDERS: Visit Provider Internal Medicine
DX: Z13.89 Encounter for screening for other disorder (principal)

== ENCOUNTER 2021-11-02 14:00 | Outpatient (REF) | payer MEDICARE, MEDICAID, SELFPAY | END 2021-11-02 14:01 | disposition home or self-care (01) | LOC: HO.HAP 14:00 | PROVIDERS: Visit Provider Internal Medicine | DX: Z46.1 Encounter for fitting and adjustment of hearing aid (principal); H90.6 Mixed conductive and sensorineural hearing loss, bilateral | CPT/HCPCS: 92593 ==

== ENCOUNTER 2021-11-09 14:21 | Outpatient (REF) | payer MEDICARE, MEDICAID, SELFPAY | END 2021-11-09 14:22 | disposition home or self-care (01) | LOC: HO.HAP 14:21 | PROVIDERS: Visit Provider Internal Medicine | DX: Z13.89 Encounter for screening for other disorder (principal) ==

== ENCOUNTER 2022-02-22 12:33 | Outpatient (REF) | payer MEDICARE, MEDICAID, SELFPAY ==
--- NOTE | 2022-02-22 14:07 | MHC.AU.MED ---
Medical Clearance for Hearing Instrumentation Date: 02/22/22 Patient Name: Artis Fuentes Date of : 1965 Primary Care Provider: Referring Provider: Joyce Mitchell MD We have seen your patient on 02/22/22 and have determined that they are a candidate for amplification (See accompanying report). Specifically, they would benefit from: Hearing aid use in both ears There is a statute that addresses Medical Evaluation Requirements prior to fitting a patient with a hearing aid. According to [place] statute 265 CMR:6.03(1), (a) General. Except as provided in 265 CMR 6.03(1)(b), a speech and hearing director shall not sell a hearing aid unless the prospective user has presented to the speech and hearing director a written statement signed by a licensed physician that states that the patient's hearing loss has been medically evaluated and the patient may be considered a candidate for a hearing aid. The medical evaluation must have taken place within the preceding six months. Please note: Due to the [place] Statute referenced above, we cannot accept a signature other than that of a licensed physician. SUTURE POLISHER and PA signatures cannot be accepted. I am in agreement with the above recommendation. There is no medical contraindication for hearing instrumentation. Physician Signature Date Physician Name (Printed)
--- NOTE | 2022-02-22 14:27 | MHC.AU.AHA ---
Adult Audiological Evaluation Date of Visit: 02/22/22 After School Tutor Used: Not Applicable Reason for Appointment: Pure tone check prior to obtaining new hearing aids. Artis currently is using binaural hearing aids obtained from [facility] in January 2017. New power hearing aids are recommended to better facilitate communication and be able to use the cell phone with greater ease. Previous Hearing Test Results: 08/24/2021 [facility] Asymmetric severe to profound mixed hearing loss at 250-4000 Hz, rising to moderately-severe loss at 8000 Hz with the left ear being 15-20 dB poorer than the right ear. Medical History: Medical History: Developmental Disorder/Delay, Asthma Medication List: Prozac, Topamax, Abilify, Supplement, Advair, Spiriva, Albuterol As need - Tylenol, Claritin, Prilosec, Flonase Hearing Instrument History- Right Ear: Log Operations Coordinator: TimeBridge Model: Heaven V50-UP Serial Number: [id number] Battery Size: 675 Repair Warranty: Dispensed By: [facility] Date of Fittin01/29/2017 Hearing Instrument History- Left Ear: Log Operations Coordinator: [employer] Model: Heavne V50-UP Serial Number: [id number] Battery Size: 675 Warranty: Dispensed By: [facility] Date of Fittin01/29/2017 Otoscopy: Right Ear: Partially occluded with cerumen Left Ear: Able to remove partially occluding cerumen prior to today's testing Tympanometry: Tympanometry performed due to: Right Ear: Not performed at today's visit Left Ear: Not performed at today's visit Hearing Evaluation: Transducer(s) Used: Insert Earphones Bone Conduction Method: Conventional Audiometry Stimuli Used: Pure Tones Right Ear: Description of Hearing: Severe sloping to profound mixed hearing loss 250-2000 Hz, rising to a moderately-severe mixed loss at 8000 Hz. Left Ear: Description of Hearing: Severe sloping to profound mixed hearing loss 250-2000 Hz, rising to a moderately-severe mixed loss at 8000 Hz. Speech Recognition Threshold (SRT): Method Used: Not performed at today's visit. Word Discrimination: Method: Not performed at today's visit. Comparison: Compared to the most recent evaluation: Thresholds have improved in the left ear. Recommendations: Trial with new ultra power amplification is recommended. Medical clearance from a physician is required before fitting. Hearing Aid Fitting will be scheduled when all materials arrive. Audiological re-evaluation in one year. Diagnosis: Primary Diagnosis: H90.6 Mixed Hearing Loss, Bilateral Services Performed: Pure Tone- Air & Bone (CPT 65707) Signature: Provider: Antonella Medrano, CCC-A
--- NOTE | 2022-02-22 14:34 | MHC.AU.HAS ---
Hearing Aid Evaluation Date of Visit: 02/22/22 Historical Information: Description of Hearing: Severe sloping to profound mixed hearing loss 250-2000 Hz, rising to moderately-severe mixed loss at 8000 Hz Current personal amplification information, if applicable: Binaural Phonak Heaven V 50-UP BTE Summary: Due to the age of current aids and patient's difficulty communicating on his cell phone, new binaural ultra power BTE with built in bluetooth capability to improve phone communication is advised. Hearing Aid Prescription: Based on the individual?s shared listening needs, communication environments, dexterity, desire for connectivity, and personal preferences, the following prescription for amplification has been made: Right ear: System Dispatcher: ReSound Model: Kit Q 798-DWT Battery Size: 675 Color: Beige Tubing: Tube Lock Type of Mold: Microsonic Shell (Red) Left ear:Left ear prescription to be same as Right Hearing Aid above: System Dispatcher: Phonak Model: Kit Q 798-DWT Battery Size: 675 Color: Beige Tubing: Tube Lock Type of Mold: Microsonic Shell (Red) Plan of Care: Patient wishes to continue with current amplification Action Taken/Action Needed: Earmold Impressions Taken Medical Clearance to be requested from PCP/ENT Remote programming to be set up at fitting appointmen Primary Diagnosis: H90.6 Mixed Hearing Loss, Bilateral Signature:Provider: Antonella Medrano
== END 2022-02-22 12:34 | disposition home or self-care (01) ==
LOC: HO.HAP 12:33
PROVIDERS: Visit Provider Internal Medicine
DX: Z46.1 Encounter for fitting and adjustment of hearing aid (principal); H90.6 Mixed conductive and sensorineural hearing loss, bilateral
CPT/HCPCS: 92553; 92591; V5275

== ENCOUNTER 2022-04-04 14:48 | Outpatient (REF) | payer MEDICARE, MEDICAID, SELFPAY ==
--- NOTE | 2022-04-06 08:28 | MHC.AU.HFA ---
Hearing Instrument Fitting- Adult- Binaural Date of Visit: 04/04/22 Hearing Instruments Dispensed: Right Ear: Ham Rolling Machine Operator: ReSound Model: Kit Q7 798-DWT Serial Number: [id number] Repair Warranty: 04/14/2022 Loss and Damage Warranty: 04/14/2025 Battery Size: 675 Color: Beige Tubing: Tube Lock Type of Mold: Microsonic Shell (Red) Left Ear: Ham Rolling Machine Operator: ALE Resound Model: Kit Q7 798-DWT Serial Number: [id number] Repair Warranty: 04/14/2025 Loss and Damage Warranty: 04/14/2025 Battery Size: 675 Color: Beige Tubing: Tube Lock Type of Mold: Microsonic Shell (Red) Summary of Fitting: Feedback calibration run. Verifit performed and levels adjusted to better reach targets. At patient request, raised gain an additional 4 steps in both, and an additional 2 steps in the left side. Patient was pleased with the sound of the instruments. Hearing aid care and maintenance were discussed. Patient did not have his phone with him today. Discussed the possibility of pairing it to his phone and the pradeep. His caregiver reports they will try pairing it to his phone when they get home. If they have any difficulty pairing the phone, they are welcome to schedule a follow-up. Recommendations: Patient is an experienced hearing aid user and will call for follow-up if needed. Diagnosis Code(s): Primary Diagnosis: H90.6 Mixed Hearing Loss, Bilateral Signature: Provider: Antonella Zaman, [facility]
== END 2022-04-04 14:49 | disposition home or self-care (01) ==
LOC: HO.HAP 14:48
PROVIDERS: Visit Provider Internal Medicine
DX: Z46.1 Encounter for fitting and adjustment of hearing aid (principal); H90.6 Mixed conductive and sensorineural hearing loss, bilateral
CPT/HCPCS: V5011; V5020; V5160; V5261; V5264; V5266

== ENCOUNTER 2022-08-03 13:58 | Outpatient (REF) | payer MEDICARE, MEDICAID, SELFPAY | END 2022-08-03 13:59 | disposition home or self-care (01) | LOC: HO.HAP 13:58 | PROVIDERS: Visit Provider Internal Medicine | DX: Z13.89 Encounter for screening for other disorder (principal) ==

== ENCOUNTER 2022-09-06 11:17 | Outpatient (REF) | payer MEDICARE, MEDICAID, SELFPAY | END 2022-09-06 11:18 | disposition home or self-care (01) | LOC: HO.HAP 11:17 | PROVIDERS: Visit Provider Internal Medicine | DX: Z13.89 Encounter for screening for other disorder (principal) ==

== ENCOUNTER 2022-11-09 10:16 | Outpatient (REF) | payer MEDICARE, MEDICAID, SELFPAY | END 2022-11-09 10:17 | disposition home or self-care (01) | LOC: HO.HAP 10:16 | PROVIDERS: Visit Provider Internal Medicine | DX: Z13.89 Encounter for screening for other disorder (principal) ==

== ENCOUNTER 2023-01-17 16:12 | Outpatient (REF) | payer MEDICARE, MEDICAID, SELFPAY | END 2023-01-17 16:13 | disposition home or self-care (01) | LOC: HO.HAP 16:12 | PROVIDERS: Visit Provider Internal Medicine | DX: Z13.89 Encounter for screening for other disorder (principal) ==

== ENCOUNTER 2023-01-31 10:21 | Outpatient (REF) | payer MEDICARE, MEDICAID, SELFPAY | END 2023-01-31 10:22 | disposition home or self-care (01) | LOC: HO.HAP 10:21 | PROVIDERS: Visit Provider Internal Medicine | DX: Z13.89 Encounter for screening for other disorder (principal) ==

== ENCOUNTER 2023-03-27 12:19 | Outpatient (REF) | payer MEDICARE, MEDICAID, SELFPAY | END 2023-03-27 12:20 | disposition home or self-care (01) | LOC: HO.HAP 12:19 | PROVIDERS: Visit Provider Internal Medicine | DX: Z46.1 Encounter for fitting and adjustment of hearing aid (principal); H90.3 Sensorineural hearing loss, bilateral | CPT/HCPCS: 92593 ==

== ENCOUNTER 2023-03-28 10:28 | Outpatient (REF) | payer MEDICARE, MEDICAID, SELFPAY | END 2023-03-28 10:29 | disposition home or self-care (01) | LOC: HO.HAP 10:28 | PROVIDERS: Visit Provider Internal Medicine | DX: Z46.1 Encounter for fitting and adjustment of hearing aid (principal); H90.3 Sensorineural hearing loss, bilateral | CPT/HCPCS: 92593 ==

== ENCOUNTER 2023-04-11 15:05 | Outpatient (REF) | payer MEDICARE, MEDICAID, SELFPAY | END 2023-04-11 15:06 | disposition home or self-care (01) | LOC: HO.SH 15:05 | PROVIDERS: Visit Provider Internal Medicine | DX: H90.6 Mixed conductive and sensorineural hearing loss, bilateral (principal) | CPT/HCPCS: 92553 ==

== ENCOUNTER 2023-06-19 14:02 | Outpatient (REF) | payer MEDICARE, MEDICAID, SELFPAY | END 2023-06-19 14:03 | disposition home or self-care (01) | LOC: HO.HAP 14:02 | PROVIDERS: Visit Provider Internal Medicine | DX: Z46.1 Encounter for fitting and adjustment of hearing aid (principal); H90.3 Sensorineural hearing loss, bilateral | CPT/HCPCS: 92593; 99499 ==

== ENCOUNTER 2023-08-02 08:38 | Emergency (ER) | payer MEDICARE, MEDICAID, SELFPAY ==
--- NOTE | ~2023-08-02 | XR_ITS ---
EXAMINATION: XR WRIST, RIGHT XR HAND, RIGHT CLINICAL INFORMATION: Following the right hand. Abrasion to lateral side. COMPARISON: None available. TECHNIQUE: PA, lateral, and oblique views of the right wrist and PA, lateral, and oblique views of the right hand FINDINGS: RIGHT WRIST: The bones and soft tissues are normal. No fracture. Alignment is anatomic. Joint spaces are maintained. No erosions or soft tissue calcifications. RIGHT HAND: The bones and soft tissues are normal. No fracture. Alignment is anatomic. Joint spaces are maintained. No erosions or soft tissue calcifications. XR/XR hand wrist RT IMPRESSION: Normal right hand and wrist.
--- NOTE | ~2023-08-02 | CT_ITS ---
EXAMINATION: CT HEAD W/O IV CONTRAST CT FACIAL BONES WITHOUT IV CONTRAST CT CERVICAL SPINE W/O IV CONTRAST CLINICAL INFORMATION: Unwitnessed fall onto face. COMPARISON: None TECHNIQUE: Head - Contiguous axial imaging of the head was performed from the skull base to the vertex without the administration of intravenous contrast, and axial images are reconstructed at 2 mm and 5 mm slice thickness. Cervical spine and facial bones - Volumetric, helical CT acquisitions of the cervical spine and facial bones obtained without contrast; in addition to the standard set of axial images, multiplanar reformatted images were provided in the coronal and sagittal imaging planes. This CT examination was performed using dose optimization techniques as appropriate, variously including the following: *Automated exposure control *Adjustment of mA and/or kV according to patient size (this includes techniques or standardized protocols for targeted exams where dose is matched to indication/reason for exam; i.e. extremities or head) *Use of iterative reconstruction technique DLP: 1516 mGy-cm (total) FINDINGS: HEAD: Brain parenchyma has normal attenuation. No evidence of intracranial hemorrhage, major vascular territory infarction, focal mass effect or midline shift. Lim to white matter differentiation is preserved. The sulci and basilar cisterns are unremarkable. The ventricles have normal size and configuration. No hydrocephalus or extra-axial fluid collections. The calvarium is intact. Status post bilateral mastoidectomy. FACIAL BONES: The globes and orbital nolasco, including lamina papyracea, are intact. The orbital apex, optic canals, and retrobulbar fat planes are normal. The maxilla, mandible and temporomandibular joints are intact. The pterygoid plates and zygomatic arches are normal. A thin linear lucency seen within the right nasal bone has smooth contour and there is no osseous displacement. This has the appearance suggestive of an old rather than acute nasal bone fracture. Also, there is no visible right perinasal soft tissue swelling. No soft tissue hematoma. There is a small amount mucus along the inferolateral wall the right maxillary sinus. There is minimal mucosal thickening along the inferomedial nolasco of the maxillary sinuses. Otherwise, the paranasal sinuses are well-aerated and the ostiomeatal units are patent. No air-fluid levels in the paranasal sinuses. CERVICAL SPINE: The cervical spine has normal lordotic curvature. The skull base, C1 and C2 lateral masses and atlantodental articulation are intact. No dens fracture. The vertebral body heights and alignment are maintained. No fractures in the anterior or posterior elements. No prevertebral soft tissue edema or hematoma. Multilevel osteophyte formation of the cervical spine. There is mild degenerative narrowing of disc space at C5-C6, C6-C7 and C7-T1. The prominent anterior enthesophytes of the cervical spine could be a manifestation of diffuse idiopathic skeletal hyperostosis. A small focus of posterior longitudinal ligament ossification is present at C3-C4. There is no significant osseous stenosis of the central spinal canal. The examined lung apices are clear. Thyroid gland is diffusely heterogeneous. There is no discrete or clinically significant thyroid nodule detected. No thyroid imaging follow-up recommended. CT/CT cervical spine wo IV con IMPRESSION: * No intracranial hemorrhage or other acute intracranial pathology. * No fracture or malalignment in the degenerated cervical spine. * There are prominent anterior enthesophytes of the cervical spine. Also, small focus of posterior longitudinal of ossification is present at C3-C4. These findings could be a manifestation of diffuse idiopathic skeletal hyperostosis. * The horizontal and vertical buttresses of the face are intact. No evidence of any significant maxillofacial injury. There is no evidence of a soft tissue hematoma within the face. * A thin smoothly marginated lucency in the right nasal bone has an appearance suggestive of old rather than acute nondisplaced fracture.
[2023-08-02 08:42] VITALS: BP 157/82; PULSE 72; RESP 20; TEMP 36.6; O2SAT 98; BMI 29.7
--- NOTE | 2023-08-02 09:02 | ED_ITS ---
HPI - Fall General Chief Complaint: Fall Stated Complaint: Facial Hand Injuries S/P Fall 08/02/23 Time Seen by Provider: 08/02/23 09:00 Source: patient Mode of arrival: ambulatory Limitations: no limitations History of Present Illness HPI Narrative: 58 year old male with pmhx significant for asthma, mood disorder, and b/l hearing impairment presents to the ED today with computer network support specialist s/p unwitnessed fall prior to arrival. Patient poor historian. Per computer network support specialist, patient went for a walk this morning and return with abrasions to his nose and right hand. Patient told computer network support specialist that his sandals caught on the ground causing him to fall and hit the front of his face on the cement sidewalk. Fall was unwitnessed. Patient states that he did not lose consciousness. Not on AC. States he is not in any pain at present. Has been ambulating with steady gait. Lead Supply Worker says that he immediately brought patient to ED. Denies headache, dizziness, vision changes, neck pain, chest pain, shortness of breath, abdominal pain, nausea/vomiting, lower extremity pain or swelling. Tetanus UTD. Related Data Home Medications Medication Instructions Recorded Confirmed topiramate 100 mg tablet (Topamax) 100 mg PO DAILY 05/25/21 05/25/21 Previous Rx's Medication Instructions Recorded bacitracin 500 unit/gram topical 1 appl topical TID #14 grams 09/08/20 ointment cephalexin 500 mg capsule 500 mg PO Q8H #21 caps 09/08/20 Allergies Allergy/AdvReac Type Severity Reaction Status Date / Time No Known Allergies Allergy Verified 09/08/20 21:29 Review of Systems 2 Review of Systems: Constitutional: No fever, chills, fatigue, night sweats, weight changes ENT/Mouth: No ear pain, hearing loss, nasal congestion, sinus pain, rhinorrhea, sore throat Eyes: No eye pain, swelling, redness, vision changes, discharge Cardio: No chest pain, palpitations, BROWN, orthopnea, peripheral edema Pulm: No SOB, cough, sputum, wheezing, dyspnea, hemoptysis GI: No nausea, vomiting, hematemesis, abdominal pain, diarrhea, constipation, hematochezia, melena : No irregular bleeding, dysuria, frequency, urgency, hesitancy, hematuria, flank pain, urinary flow changes, urinary incontinence or retention MSK: No back pain, neck pain, joint pain, myalgias Skin: No lesions, rashes, +abrasions to right hand/nose Neuro: No weakness, numbness, paresthesias, LOC, dizziness, headache All other systems reviewed and are negative. [facility] Past Medical History Attestation statement: The following information was validated with the patient. Source: old records reviewed and nursing notes reviewed Social History Social History Patient Tobacco Use Status: Current everyday Tobacco user Advance Directives: No Advance Directives Information Provided: No Physical Exam 2 Vital Signs: Vital Signs: Last Vital Signs Temp 97.9 F 08/02/23 08:42 Pulse 57 08/02/23 10:39 Resp 16 08/02/23 10:39 BP 123/70 08/02/23 10:39 Pulse Ox 98 08/02/23 10:39 O2 Del Method Room Air 08/02/23 10:39 BMI result Body Mass Index 29.7 Vital signs stable Const: General: cooperative, comfortable, no acute distress, alert and awake Orientation/consciousness: patient oriented x3 Limitations: no limitations HEENT: Other: + abrasion to external nose and bridge, dried blood noted to b/l nares, nares patent, no active bleeding, no epistaxis, no septal hematoma Head: Yes normal to inspection, Yes No palpable skull fracture present, No Goodwin's sign, No raccoon eyes and No periorbital ecchymosis Ears: hearing grossly impaired (wears hearing aids at baseline) bilaterally General nose exam: Normal external nose present and Normal nares present Face images: 1. multiple abrasions Mouth: Normal oral and palatal mucosa present Teeth and gingiva: dentition normal Throat: Yes posterior oropharynx normal Eyes: Other: + EOMs intact without entrapment bilater ally General: appearance normal, both eyes and all related structures S clerae: sclerae normal Neck: Neck: Yes normal visual inspection and Yes full ROM Chest: Chest palpation & inspection: normal inspection of the chest, normal palpation of entire chest wall, no crepitus and no tenderness Resp: Effort & Inspection: normal respiratory effort, able to speak in complete sentences and symmetric chest movement Auscultation: clear to auscultation bilaterally Cardio: Rate: regular rate Rhythm: regular rhythm Peripheral pulses: r adial pulses present and ulnar radial pulses present GI: Inspection: Yes normal to inspection and No abdominal wall ecchymosis P alpation (GI): Soft to palpation and nontender Back/Spine/Pelvis: Other: No midline spinous tenderness. No paraspinal muscle tenderness. No step off deformity. Back: No Lim-Huitron sign present Skin: Other: + multiple abrasions noted to external n ose/bridge. Abrasions noted to the ulnar aspect of the right hand. No active bleeding. Neuro: General: patient oriented x3, gait normal and moves all extremities Motor exam (neuro): 5/5 motor strength present throughout Extrem: Other: + multiple abrasions noted to ulnar aspe ct of right hand, no active bleeding. Electrician Master strength intact. Finger to thumb opposition intact. Full ROM intact to MCP, PIP, and PIP of all digits on right hand. No snuffbox tenderness. Full ROM intact to right wrist. General: Yes normal to inspection and Yes full ROM Course Course Course Narrative: 1054-- x-ray right hand/wrist unremarkable. No fracture or dislocation. CT head/brain without bleed. CT facial bones without acute fracture. CT C-spine without acute fracture subluxation. Workup unremarkable. > discussed results with patient and computer network support specialist. Will dress the wounds with nonadherent dressing. Patient's tetanus is up-to-date and this will not be given today. Discussed worrisome signs symptoms and when to return to the emergency department. Patient has remained stable throughout ED visit today. All questions answered at this time. Patient is agreeable with disposition and stable for discharge. Medical Decision Making Medical Decision Making MDM Narrative: 58 year old male with pmhx significant for asthma, mood disorder, and b/l hearing impairment presents to the ED today with computer network support specialist s/p unwitnessed fall prior to arrival. Vital signs stable. Patient is nontoxic appearing in no acute distress. Exam nonfocal. PERRLA. Cerebellum intact. On exam there are multiple abrasions noted to the external nose and nasal bridge. Dry blood noted to bilateral nares, no active bleeding, no septal hematoma, nares patent. There are multiple abrasions noted to ulnar aspect of right hand, no active bleeding. Electrician Master strength intact. Finger to thumb opposition intact. Full ROM intact to MCP, PIP, and PIP of all digits on right hand. No snuffbox tenderness. Full ROM intact to right wrist. Clinical concern for facial fracture, concussion, ICH. Unlikely blowout fracture, globe rupture, muscle entrapment. Unlikely septal hematoma, unstable facial fracture. Plan at this time is images and re- evaluation. Differential Diagnosis Differential Diagnoses: The differential diagnosis associated with the presentation includes as above. Admission/Observation Not indicated. Independent Interpretation I performed an independent interpretation of an: Plain X-Ray and CT Scan Interpretation: X-ray of right hand without acute fracture or dislocation, agree with radiologist's interpretation. CT scan of facial bones without acute fracture, agree with radiologist's interpretation. CT scan of head/brain without acute bleed, agree with radiologist's interpretation. CT scan of cervical spine without acute fracture or subluxation, agree with radiologist's interpretation. Radiology Impression Discussion of test interpretation with radiology: I have reviewed the radiologist's reading. Radiologist Impression: CT cervical spine/head/brain/ facial bone wo IV con IMPRESSION: * No intracranial hemorrhage or other acute intracranial pathology. * No fracture or malalignment in the degenerated cervical spine. * There are prominent anterior enthesophytes of the cervical spine. Also, small focus of posterior longitudinal of ossification is present at C3-C4. These findings could be a manifestation of diffuse idiopathic skeletal hyperostosis. * The horizontal and vertical buttresses of the face are intact. No evidence of any significant maxillofacial injury. There is no evidence of a soft tissue hematoma within the face. * A thin smoothly marginated lucency in the right nasal bone has an appearance suggestive of old rather than acute nondisplaced fracture. XR hand wrist RT IMPRESSION: Normal right hand and wrist. Independent Historian Clinical information obtained from an independent historian. History obtained from or confirmed by: Other (resident care associate) External Record Review External record reviewed: Inpatient record Prescription Management I considered prescription management with: Pain Medication and Antibiotic Critical Care Time Critical Care Time Critical Care Time: No Discharge Plan Discharge Clinical Impression: Unwitnessed fall Patient Disposition: Home, Self-Care Instructions: Bacitracin (On the skin), Abrasion (ED) Additional Instructions: The x-ray of your right hand/wrist did not demonstrate acute fracture. The CT scan of your head/brain, neck, facial bones did not demonstrate acute bleed or fracture. Your wounds were dressed with a nonadherent dressing today. Keep this applied for the next few days and then allow for open healing. You may also apply bacitracin for Neosporin to the area to help with healing. Please follow-up with your primary care provider. If symptoms persist or worsen, you develop oozing from the wounds, surrounding redness, fever or other signs of infection please return to the emergency department. The case of an emergency call 911. Prescriptions: No Action bacitracin 500 unit/gram ointment 1 appl topical TID Qty: 14 0RF cephalexin 500 mg capsule 500 mg PO Q8H Qty: 21 0RF topiramate [Topamax] 100 mg Tablet 100 mg PO DAILY Referrals: Joyce Mitchell MD [Primary Care Provider] -
[2023-08-02 10:39] VITALS: BP 123/70; PULSE 57; RESP 16; O2SAT 98
[2023-08-02] MEDS: Bacitracin Oint 0.9 GM PACKET 1 APPL TOPICAL (11:02)
== END 2023-08-02 11:06 | disposition home or self-care (01) ==
PROVIDERS: Emergency Provider Emergency Medicine Emergency Medical Services; PCP Internal Medicine
DX: S19.9XXA Unspecified injury of neck, initial encounter (principal); S00.81XA Abrasion of other part of head, initial encounter; R51.9 Headache, unspecified; M54.2 Cervicalgia; M25.531 Pain in right wrist; W01.10XA Fall on same level from slipping, tripping and stumbling with subsequent striking against unspecified object, initial encounter; Y93.9 Activity, unspecified; Y92.9 Unspecified place or not applicable; Y99.9 Unspecified external cause status; F17.200 Nicotine dependence, unspecified, uncomplicated; Z71.6 Tobacco abuse counseling; Z79.899 Other long term (current) drug therapy
CPT/HCPCS: 70450; 70486; 72125; 73110; 73130; 99284

== ENCOUNTER 2023-12-31 11:24 | Outpatient (REF) | payer MEDICARE, MEDICAID, SELFPAY | END 2023-12-31 11:25 | disposition home or self-care (01) | LOC: HO.HAP 11:24 | DX: Z13.89 Encounter for screening for other disorder (principal) ==

== ENCOUNTER 2024-02-25 13:34 | Outpatient (REF) | payer MEDICARE, MEDICAID, SELFPAY ==
--- NOTE | 2024-02-25 13:58 | MHC.AU.HA3 ---
Hearing Instrument Follow-Up- Binaural Date of Visit: 02/25/24 Right Ear: Make, Model, Color, Serial Number: Adore Pantoja [id number] SN: [id number] Color: Beige Previous SN: [id number] (LOST) Video Arcade Manager Repair Warranty: 04/14/2025 Video Arcade Manager Loss and Damage Warranty: USED [facility] Service Plan: 04/04/2023 Battery Size: 675 Earmold/Dome/CShell/SlimTip:Microsonic Shell (Red) Dispensed By: [facility] Date of Fittin04/04/2022 Left Ear: Make, Model, Color, Serial Number: Adore Pantoja [id number] SN: [id number] Color: Beige Previous SN: [id number] (LOST) Video Arcade Manager Repair Warranty: 04/14/2025 Video Arcade Manager Loss and Damage Warranty: USED [facility] Service Plan: 04/04/2023 Battery Size: 675 Earmold/Dome/CShell/SlimTip: Microsonic Shell (Red) Dispensed By: [facility] Date of Fittin04/04/2022 Follow-Up Summary: Accompanied by intermediate staff, Duran Jones Fit new ear molds and L&D replacement hearing aids, programmed to previous settings. Provided new hard Phonak case at Duran's request and new cleaning brush at Graham's request. Instructed how to clean ear mold with brush/wax loop and discussed need for periodic tubing changes. Recommendations: Hearing instrument follow-up or maintenance as needed. Please contact our clinic with any questions or concerns. Diagnosis Code(s): Primary Diagnosis: H90.6 Mixed Hearing Loss, Bilateral Signature: Provider: Belinda Wyatt, [facility]
== END 2024-02-25 13:35 | disposition home or self-care (01) ==
LOC: HO.HAP 13:34
PROVIDERS: Visit Provider Internal Medicine
DX: Z46.1 Encounter for fitting and adjustment of hearing aid (principal); H90.6 Mixed conductive and sensorineural hearing loss, bilateral
CPT/HCPCS: V5264

== ENCOUNTER 2024-05-05 11:51 | Outpatient (REF) | payer MEDICARE, MEDICAID, SELFPAY ==
--- NOTE | 2024-05-05 15:32 | MHC.AU.HA3 ---
Hearing Instrument Follow-Up- Binaural Date of Visit: 05/05/24 Right Ear: Iraj, Model, Color, Serial Number: Adore [id number] SN: [id number] Color: Beige Previous SN: [id number] (LOST) Gourmet Coffee Attendant Repair Warranty: 04/14/2025 Gourmet Coffee Attendant Loss and Damage Warranty: USED [facility] Service Plan: 04/04/2023 Battery Size: 675 Utilization Specialist/Slim Tube: Earmold/Dome/CShell/SlimTip:Microsonic Shell (Red) Type of Wax Guard: Dispensed By: [facility] Date of Fittin04/04/2022 Left Ear: Iraj, Model, Color, Serial Number: Adore [id number] SN: [id number] Color: Beige Previous SN: [id number] (LOST) Gourmet Coffee Attendant Repair Warranty: 04/14/2025 Gourmet Coffee Attendant Loss and Damage Warranty: USED [facility] Service Plan: 04/04/2023 Battery Size: 675 Utilization Specialist/Slim Tube: Earmold/Dome/CShell/SlimTip: Microsonic Shell (Red) Type of Wax Guard: Dispensed By: [facility] Date of Fittin04/04/2022 Follow-Up Summary: Both hearing aids dropped off, not working . Found both with batteries, wax in tubes. Cleaned aids, cleaned earmolds, retubed. Listening check positive. Recommendations: Recommendations: Hearing instrument maintenance in 6 months, or sooner if needed. Diagnosis Code(s): Primary Diagnosis: H90.6 Mixed Hearing Loss, Bilateral Signature: Provider: Belinda Osorio, [facility]
== END 2024-05-05 11:52 | disposition home or self-care (01) ==
LOC: HO.HAP 11:51
PROVIDERS: Visit Provider Internal Medicine
DX: Z13.89 Encounter for screening for other disorder (principal)

== ENCOUNTER 2024-05-13 08:23 | Outpatient (REF) | payer MEDICARE, MEDICAID, SELFPAY | END 2024-05-13 08:24 | disposition home or self-care (01) | LOC: HO.HAP 08:23 | PROVIDERS: Visit Provider Internal Medicine | DX: Z46.1 Encounter for fitting and adjustment of hearing aid (principal) | CPT/HCPCS: 92593; 99499 ==

== ENCOUNTER 2024-06-19 11:19 | Outpatient (REF) | payer MEDICARE, MEDICAID, SELFPAY | END 2024-06-19 11:20 | disposition home or self-care (01) | LOC: HO.HAP 11:19 | PROVIDERS: Visit Provider Internal Medicine | DX: Z46.1 Encounter for fitting and adjustment of hearing aid (principal); H90.6 Mixed conductive and sensorineural hearing loss, bilateral | CPT/HCPCS: V5266 ==

== ENCOUNTER 2024-12-08 13:05 | Outpatient (REF) | payer MEDICARE, MEDICAID, SELFPAY ==
--- OUTSIDE RECORDS SUMMARY | 2024-12-08 15:33 | XMS_ITS | Data Portability ---
Author Organization [place] [facility], Allergy Address [address] [place] [address] Care Team Providers Care Picker Name Role Phone IDANIA LOPEZ Primary Care Provider [phone] Assessment Encounter Date Assessment Date Assessment LastModified by Organization Details LastModified Time 04/01/2024 04/01/2024 59-year-old male with developmental delay and bilateral mastoid cavity presents for mastoid cleaning. On exam there is dry squamous debris within bilateral cavities cleared carefully with suction and instruments as needed. No sign of recurrent cholesteatoma. He does have a small area of irritation on the right ear consistent with pressure from hearing aid use. I have strongly recommended against wearing hearing aids while sleeping. Will prescribe mupirocin ointment as the area seems to be mildly infected. Follow-up in 3 to 4 weeks for reevaluation. All questions answered. suzy Not available 04/01/2024 14:39:06 05/15/2024 05/15/2024 59-year-old male with developmental delay and bilateral canal wall down mastoidectomy presents for reevaluation. On examination there is purulent otorrhea on the right side cleared with suction. TM is generally thickened. Small amount of granulation tissue within the cavity. Recommended a course of Ciprodex drops and dry ear precaution. Follow-up in 3 to 4 weeks for reevaluation. suzy Not available 05/15/2024 16:09:08 09/24/2024 09/24/2024 59-year-old male with developmental delay and bilateral canal wall down mastoidectomy presents for reevaluation of right sided otorrhea. Cerumen impactions removed bilaterally. Exam demonstrates right external ear canal and mastoid cavity with squamous debris and underlying purulent otorrhea, debrided today. TMs are intact and generally thickened. Right TM with moderate granulation tissue. Recommend topical CiproDex twice daily for 14 days. Reviewed drop administration and water precautions. Patient will return for revaluation in 2-3 weeks to assess for infection resolution. [email or web address] Not available 09/24/2024 16:39:58 10/15/2024 10/15/2024 59-year-old male with developmental delay and bilateral canal wall down mastoidectomy presents for reevaluation of right sided otorrhea. No new concerns today. Exam demonstrates external auditory canals and mastoid cavities are without cerumen or debris. TMs are intact and generally thickened, difficult to assess. Recommend follow-up in 4 months for routine mastoid debridement. [email or web address] Not available 10/15/2024 13:27:15 Plan of Treatment Reminders Order Date Submit Date Provider Last Modified By Organization Details Last Modified Time Details Appointments Establish ed 15 2024 10:15A M KINGSLEY DELA CRUZ PA-C Not available Not available Not available Lab None recorded. Referral None recorded. Procedures None recorded. Surgeries None recorded. Imaging None recorded. Medication Orders ciproflox acin 0.3 %-dexamet hasone 0.1 % ear drops,carolyn pension 2024 025 [facility], [address] [place] [address], [id number], 09/24/2024 15:19:57 Ciprodex 0.3 %-0.1 % ear drops,carolyn pension 2023 024 [facility], [address] [place] [address], [id number], 05/15/2024 15:53:11 mupirocin 2 % topical ointment 2023 024 [facility], [address] [place] [address], [id number], 04/01/2024 14:47:53 Patient TargetsNo targets recorded. Patient InstructionsNo instructions recorded. Reason for Referral None Reported. Problems Name Problem SNOMED Code Status Onset Date Resolution Date Notes Provider Name and Address Organization Details Recorded Time Bilateral chronic mastoidit is 82396967155 28028 Active 2015 Chronic mastoidit is, bilateral ; Note: Date Diagnosed : 08/23/2015 4:50 PM (H70.13) Not Available [facility] 4 02:21:38 Chronic right mastoidit is 89148079515 21546 Active 2021 Chronic mastoidit is, right ear; Note: Date Diagnosed : 2 10:14 AM (H70.11) Not Available [facility] 4 02:21:56 Chronic rhinitis 02925942 Active 2015 Chronic rhinitis; Note: Date Diagnosed : 01/06/2016 2:18 PM (J31.0) Not Available [facility] 4 02:22:11 Gastroeso phageal reflux disease without esophagit is 574530484 Active 2016 Gastro-es ophageal reflux disease without esophagit is; Note: Date Diagnosed : 7 10:17 AM (K21.9) Not Available [facility] 4 02:22:16 Mixed conductiv e and sensorine ural hearing loss, bilateral 103309816 Active 2015 Mixed hearing loss, bilateral ; Note: Date Diagnosed : 05/10/2015 3:04 PM (389.22) ; Start Date : 5 Mixed conductiv e and sensorine ural hearing loss, bilateral ; Note: Date Diagnosed : 05/03/2016 4:16 PM (H90.6) Not Available [facility] 4 02:22:13 Otorrhea of left ear 74383767737 10978 Active 2016 Otorrhea, left ear; Note: Date Diagnosed : 12/12/2016 11:02 AM (H92.12) Not Available [facility] 4 02:22:07 Stomatiti s 22490440 Active 2016 Oral thrush; Note: Date Diagnosed : 11/26/2016 4:56 PM (B37.0) Not Available [facility] 4 02:21:53 Candidias is of mouth 54820114 Active 2016 Oral thrush; Note: Date Diagnosed : 11/26/2016 4:56 PM (B37.0) Not Available [facility] 4 02:21:53 Otorrhea of right ear 92362263554 37445 Active 2015 Otorrhea, right ear; Note: Date Diagnosed : 04/04/2016 12:31 PM (H92.11) Not Available [facility] 4 02:21:59 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; Note: Date Diagnosed : 01/06/2016 2:07 PM (383.33) Not Available [facility] 4 02:21:51 Asthma 129877873 Active 2016 Other asthma; Note: Date Diagnosed : 11/26/2016 4:58 PM (J45.998) Not Available [facility] 4 02:22:11 Otitis externa of right ear 98202534978 07549 Active 2017 Other otitis externa, right ear; Note: Date Diagnosed : 10/31/2017 2:17 PM (H60.8X1) Not Available [facility] 4 02:22:00 Abrasion of skin of right ear 93091374382 909850 Active 2017 Abrasion of right ear, initial encounter ; Note: Date Diagnosed : 8 3:49 PM (S00.411A ) Not Available [facility] 4 02:21:59 Otorrhea of bilateral ears 78088510203 85140 Active 2016 Otorrhea, bilateral ; Note: Date Diagnosed : 11/26/2016 4:56 PM (H92.13) Not Available [facility] 4 02:22:12 Chronic mastoidit is 17333470 Active 2013 Chronic mastoidit is; Note: Date Diagnosed : 4 4:34 PM (383.1) Not Available [facility] 4 02:21:36 Granuloma tous disorder of the skin and subcutane ous tissue 925648559 Active 2018 Granuloma tous disorder of the skin and subcutane ous tissue, unspecifi ed; Note: Date Diagnosed : 12/18/2018 4:17 PM (L92.9) Not Available [facility] 4 02:21:57 Tobacco user 019612559 Active 2016 Tobacco use NOS; Note: Date Diagnosed : 11/26/2016 4:58 PM (Z72.0) Not Available [facility] 4 02:21:41 Postmasto idectomy complicat ion 74239523 Active 2016 Other disorders following mastoidec harley, right ear; Note: Date Diagnosed : 04/18/2017 3:01 PM (H95.191) Other disorders following mastoidec harley, bilateral ears; Note: Date Diagnosed : 04/04/2016 6:13 PM (H95.193) ; Start Date : 6 Not Available [facility] 4 02:22:08 Dysphonia 94638153 Active 2015 Hoarsenes s; Note: Date Diagnosed : 6 3:35 PM (R49.0) Not Available [facility] 4 02:22:19 Chronic ulcer of skin of right ear 82242199248 957854 Active 2023 MARIO DIAS PA-C [address] [facility],[place] [address], [place], [address] , [place] - [facility] 4 14:40:54 Impacted cerumen of bilateral ears 51471943978 55307 Active 2024 KINGSLEY DELA CRUZ PA-C [address] [facility],[place] [address], [facility] [place], [address] , [place] - [facility] 5 15:10:17 Problem Notes None recorded. Procedures Surgical History Date Name Laterality Status Provider Name and Address Organization Details Recorded Time 5 Debridement of Mastoid Cavity right completed KINGSLEY DELA CRUZ PA-C [address] [facility],KAREN [facility], [place], [address], [place] - [facility] 09/24/2024 16:37:26 4 Debridement of Mastoid Cavity right completed MARIO DIAS PA-C [address] [facility],[place] [address], [place], [address], [place] - [facility] 05/15/2024 16:08:26 Debridement of Mastoid Cavity bilat completed MARIO DIAS PA-C [address] [place] [address],[place] [address], [place], [address], [place] - [facility] 04/01/2024 14:37:48 Imaging Results None recorded. Procedure Notes None recorded. Medical Equipment None Reported. Medications Name Sig Start Date Stop Date Status Note LastModified by Organization Details LastModified Time Prescript ion - New active Rx^Rx_20 [id number] Not Available Not Available Not Available Singulair 10 mg tablet 1 tablet by mouth 2014 active Medicati on ID: [id number] Du ration Value: 30 Brand Name: Singulai r Send Method: E-Prescr ibed Sub s Allowed: subs OK Speci al Instruct ion: Take 1 tablet by mouth every day in the evening Medicati onGeneri cName: Singulai r Not Available Not Available Not Available multivita min tablet 2013 active Medicati on ID: [id number] Br and Name: multivit aguilera Sen d Method: E-Prescr ibed Sub s Allowed: subs OK Medic ationGen ericName : multivit aguilera Not Available Not Available Not Available clotrimaz ole 10 mg sanya 1 sanya in mouth 2015 active Medicati on ID: [id number] D uration Value: 14 Prescri bed By Name: JORDIN Canales nd Name: clotrima zole Sen d Method: E-Prescr ibed Sub s Allowed: subs OK Medic ationGen ericName : clotrima zole Not Available Not Available Not Available loratadin e 10 mg disintegr ating tablet 2015 active Medicati on ID: [id number] B rand Name: loratadi ne Send Method: E-Prescr ibed Sub s Allowed: subs OK Medic ationGen ericName : loratadi ne Not Available Not Available Not Available Lotrisone 1 %-0.05 % topical cream 04/24 completed Medicati on ID: [id number] P rescribe d By Name: JORDIN Dickerson nd Name: Lotrison e Send Method: E-Prescr ibed Sub s Allowed: subs OK Speci al Instruct ion: apply to external right ear bid X 2 weeks Me dication GenericN yoav: Lotrison e Not Available Not Available Not Available Atrovent 0.03 % nasal spray 2 spray into both nostrils 2015 active Medicati on ID: [id number] P rescribe d By Name: JORDIN Canales nd Name: Atrovent Send Method: E-Prescr ibed Sub s Allowed: subs OK Medic ationGen ericName : Atrovent Not Available Not Available Not Available bacitraci n zinc 500 unit/gram topical ointment 2013 [place] Medicati on ID: [id number] Br and Name: bacitrac in zinc Sen d Method: E-Prescr ibed Sub s Allowed: subs OK Medic ationGen ericName : bacitrac in zinc Not Available Not Available Not Available Ciloxan 0.3 % eye drops 4 drop 2019 active Medicati on ID: [id number] D uration Value: 10 Prescri bed By Name: Bebo Olguin MD Brand Name: Ciloxan Send Method: E-Prescr ibed Sub s Allowed: subs OK Speci al Instruct ion: Instill 3-4 drops twice a day into the affected ear. Med icationG enericNa me: Ciloxan Not Available Not Available Not Available omeprazol e 40 mg capsule,d elayed release 09/24 completed Medicati on ID: [id number] D uration Value: 30 Prescri bed By Name: JORDIN Hagan nd Name: omeprazo le Send Method: E-Prescr ibed Sub s Allowed: subs OK Speci al Instruct ion: TAKE ONE CAPSULE EVERY DAY [facility] omeprazo le Not Available Not Available Not Available TobraDex 0.3 %-0.1 % eye ointment 01/05 completed Medicati on ID: [id number] P rescribe d By Name: JORDIN Canales nd Name: TobraDex Send Method: E-Prescr ibed Sub s Allowed: subs OK Speci al Instruct ion: as directed Medicat ionGener icName: TobraDex Not Available Not Available Not Available acetamino phen ER 650 mg tablet,ex tended release active Not Available Not Available Not Available Diflucan 100 mg tablet 1 tablet by mouth 2019 active Medicati on ID: [id number] D uration Value: 7 Prescri bed By Name: Bebo Olguin MD Brand Name: Diflucan Send Method: E-Prescr ibed Sub s Allowed: subs OK Medic ationGen ericName : Diflucan Not Available Not Available Not Available sulfaceta mide sodium 10 % eye drops 2020 active Medicati on ID: [id number] D uration Value: 14 Brand Name: sulfacet amide sodium S end Method: E-Prescr ibed Sub s Allowed: subs OK Speci al Instruct ion: 4 drops to right ear TID x 14 days Med icationG enericNa me: sulfacet amide sodium Not Available Not Available Not Available clotrimaz ole 1 % topical solution 04/24 completed Medicati on ID: [id number] P rescribe d By Name: Janice Hdz nd Name: clotrima zole Sen d Method: E-Prescr ibed Sub s Allowed: subs OK Speci al Instruct ion: 5 drops to affected RIGHT ear three times a day Medi cationGe nericNam e: clotrima zole Not Available Not Available Not Available omeprazol e 20 mg capsule,d elayed release active Not Available Not Available Not Available Tylenol 325 mg tablet 2013 [place] Medicati [place] ID: [id number] Br and Name: Tylenol Send Method: E-Prescr ibed Sub s Allowed: subs OK Medic ationGen ericName : Tylenol Not Available Not Available Not Available mupirocin 2 % topical ointment Apply a small amount to affected area twice daily with clean fingerti p for 2 weeks active Not Available Not Available No t Available levofloxa heriberto 500 mg tablet Apply 1 tablet by mouth once a day 2022 active Medicati on ID: [id number] D uration Value: 14 Prescri bed By Name: Manasa Dumont MD Brand Name: levoflox acin Sen d Method: E-Prescr ibed Sub s Allowed: subs OK Medic ationGen ericName : levoflox acin Not Available Not Available Not Available methylpre dnisolone 4 mg tablets in a dose pack active Not Available Not Available Not Available albuterol sulfate HFA 90 mcg/actua tion aerosol inhaler active Not Available Not Available Not Available Prozac 10 mg capsule 2013 [place] Medicati on ID: [id number] Br and Name: Prozac S end Method: E-Prescr ibed Sub s Allowed: subs OK Medic ationGen ericName : Prozac Not Available Not Available Not Available topiramat e 100 mg tablet active Not Available Not Available Not Available fluoxetin e 20 mg capsule active Not Available Not Available Not Available fluticaso ne propionat e 50 mcg/actua tion nasal spray,carolyn pension active Not Available Not Available Not Available loratadin e 10 mg tablet active Not Available Not Available Not Available Phenergan 25 mg/mL injection solution 2015 active Medicati on ID: [id number] B rand Name: Phenerga n Send Method: E-Prescr ibed Sub s Allowed: subs OK Medic ationGen ericName : Phenerga n Not Available Not Available Not Available neomycin- polymyxin -hydrocor t 3.5 mg-10,000 unit/mL-1 % ear drops,carolyn p 11/20 completed Medicati on ID: [id number] P rescribe d By Name: JORDIN Canales nd Name: neomycin -polymyx in-HC Se nd Method: E-Prescr ibed Sub s Allowed: subs OK Speci al Instruct ion: 8 drops to affected ear BID X 14 days Med icationG enericNa me: neomycin -polymyx in-HC Not Available Not Available Not Available TobraDex 0.3 %-0.1 % eye drops,carolyn pension Apply 2022 active Medicati on ID: [id number] P rescribe d By Name: Manasa Dumont MD Brand Name: TobraDex Send Method: E-Prescr ibed Sub s Allowed: subs OK Speci al Instruct ion: Instill 15-0 drops in the both ears BID for 21 days Med icationG enericNa me: TobraDex Not Available Not Available Not Available Neosporin (eunice-anahy- polym) 3.5 mg-400 unit-5,00 0 unit/gram top ointment 10/02 completed Medicati on ID: [id number] P rescribe d By Name: JORDIN Canales nd Name: Neospori n (eunice-anahy -polym) Send Method: E-Prescr ibed Sub s Allowed: subs VLADISLAV saldaña Instruct ion: Apply to ulcer on right ear BID X 7 days [facility] Neospori n (eunice-anahy -polym) Not Available Not Available Not Available neomycin- bacitraci n-poly-HC 3.5 mg-400-10 ,000 unit/g-1 % eye ointment 11/20 completed Medicati on ID: [id number] P rescribe d By Name: JORDIN Canales nd Name: neomycin -bacitra heriberto-poly -HC Send Method: E-Prescr ibed Sub s Allowed: subs VLADISLAV saldaña Instruct ion: To be applied to external ears as directed ; bring ointment to ENT appointm ents [facility] me: neomycin -bacitra heriberto-poly -HC Not Available Not Available Not Available azithromy heriberto 500 mg tablet active Not Available Not Available No t Available aripipraz ole 20 mg tablet active Not Available Not Available Not Available ciproflox acin 0.3 %-dexamet hasone 0.1 % ear drops,carolyn pension 4 drops twice daily into right ear for 14 days active Not Available Not Available No t Available Spiriva with [employer] r 18 mcg and inhalatio n capsules active Not Available Not Available Not Available Advair HFA 230 mcg-21 mcg/actua tion aerosol inhaler active Not Available Not Available Not Available aripipraz ole 2 mg tablet active Not Available Not Available Not Available Symbicort 160 mcg-4.5 mcg/actua tion HFA aerosol inhaler active Not Available Not Available Not Available omeprazol e 20 mg tablet,de layed release 2015 active Medicati on ID: [id number] B suzanna Name: omeprazo le Send Method: E-Prescr ibed Sub s Allowed: subs OK Specellyn al Instruct ion: Take 1 tablet by mouth every day before bed Medi cationGe nericNam e: omeprazo le Not Available Not Available Not Available Tab-A-Vit e 400 mcg tablet active Not Available Not Available Not Available Vitals Date Recorded Body height Body mass index (BMI) Body weight Provider Name and Address Organization Details Last Updated DateTime 05/15/2024 160.02 cm 29.8 kg/m2 10357.52 g Araseli Guerrero [facility] 05/15/2024 15:41:09 Date Recorded Body height Body mass index (BMI) Body weight Provider Name and Address Organization Details Last Updated DateTime 09/24/2024 152.4 cm 31.6 kg/m2 52123.96 g Meredith Caba [facility] 09/24/2024 14:36:58 Date Recorded Body height Body mass index (BMI) Body weight Provider Name and Address Organization Details Last Updated DateTime 10/15/2024 165.1 cm 27.5 kg/m2 80730.74 g Fay Garcia [facility] 10/15/2024 13:01:16 Social History None recorded. Functional Status None recorded. Mental Status None recorded. Family History Nothing Reported. Medical History No medical history recorded. Past Encounters Encounter ID Performer Location Encounter Start Date Encounter Closed Date Diagnosis/Indication Diagnosis SNOMED-CT Code Diagnosis ICD10 Code Diagnosis Note [id number] SHAHIDA JACOB MD [facility] [address] [address] 04/01/2024 13:50:59 04/01/2024 14:31:34 Chronic ulcer of skin of right ear [id number] 6869362 L98.499 Bilateral chronic mastoiditis 8855077669 980160 H70.13 [id number] SHAHIDA JACOB MD [facility] [address] [address] 05/15/2024 15:34:07 05/15/2024 15:54:49 Otorrhea of right ear 6275542800 892668 H92.11 Bilateral chronic mastoiditis 7751000193 487179 H70.13 Granulomat ous disorder of the skin and subcutaneous tissue 588884563 L92.9 [id number] MELANIA HENAO MD [facility] [address] [address] 09/24/2024 14:22:05 09/24/2024 15:14:59 Otorrhea of right ear 0363144250 507875 H92.11 Impacted c erumen of bilateral ears 7299932266 688773 H61.23 Postmastoi dectomy complication 35244940 H95.199 [id number] JEANINE LAMAR MD [facility] [address] [address] 10/15/2024 12:48:17 10/15/2024 13:20:39 Otitis externa of right ear 8099447212 766679 H60.8X1 Postmastoi dectomy complication 15271170 H95.199 Health Concerns Section Related Observation LastModified by Organization Detai ls LastModified Time None Recorded Concern Status LastModified by Organization Details LastModified Time None Recorded Advance Directives Directive None Recorded Payers Encounter Date Sequence Insurance Name Policy Number Policy Sommer Covered Member ID Sommer Member ID Guarantor Name 05/15/2024 1 MEDICARE B-[place]: [facility] Artis John Alfredo [id number] Artis Lopez Alfredo 09/24/2024 1 MEDICARE B-MS: [facility] Artis Lopez Alfredo [id number] Artis Lopez Alfredo 10/15/2024 1 MEDICARE B-[place]: [facility] Artis Lopez Alfredo [id number] Artis Lopez Alfredo 10/15/2024 2 MEDICAID-[place]: [facility] Artis Ruizcalves [id number] Artis Fuentes Notes Date Note Type Note Provider Name and Address Organization Details Recorded Time 04/01/2024 text/html 59-year-old male with developmental delay presents for bilateral mastoid debridement. [employer] T[employer] Floor Layer from his group living facility reports no otorrhea or concerns about hearing. The patient has bilateral hearing aids which he wears 11/03. He has been complaining of a sore spot on his right ear. SHAHIDA AMBROCIO MD [address] [place] [address], [address], [facility] 04/01/2024 15:09:15 05/15/2024 text/html 59-year-old male with bilateral canal wall down mastoidectomy and developmental delay presents for reevaluation. They have been using mupirocin for localized infection on the pinna. Patient however began to develop otorrhea and bleeding from the right ear. SHAHIDA AMBROCIO MD [address] [facility],[address], [address], [facility] 05/15/2024 16:50:03 09/24/2024 text/html 59-year-old male with developmental delay and bilateral canal wall down mastoidectomy presents for reevaluation of right sided otorrhea. He denies pain. No obvious hearing changes. MELANIA HENAO MD [address] [facility],[address], [address], [facility] - [facility] 09/25/2024 21:40:00 10/15/2024 text/html 59-year-old male with developmental delay and bilateral canal wall down mastoidectomy presents for reevaluation of right sided otorrhea. No new concerns today. JEANINE LAMAR MD [address] [facility],[address], [address], [facility] - [facility] 10/16/2024 08:07:36
--- OUTSIDE RECORDS SUMMARY | 2024-12-08 15:33 | XMS_ITS | Clinical Summary ---
Author Organization [facility] Address [address] [place] [address] Phone Care Team Providers Care Instrument Operator Name Role Phone Joyce Mitchell MD Primary Care Provider [phone] Allergies No known active allergies Medications ARIPiprazole (ABILIFY) 20 mg tablet Take 1 Tablet by mouth daily. Active tiotropium (Spiriva with HandiHaler) 18 mcg per inhalation capsule INHALE THE CONTENTS OF ONE CAPSULE THROUGH THE INHALE THE CONTENTS OF 1 CAPSULE VIA HANDIHALER AT THE SAME TIME EACH DAY DEVICE EVERY AM 4 Active lactose-reduced food (ENSURE COMPLETE ORAL) Take by mouth 2 times daily. Active FLUoxetine (PROzac) 20 mg capsule 20 mg. 7 Active topiramate (TOPAMAX) 100 mg tablet 100 mg. 7 Active omeprazole (PriLOSEC) [address] capsule Take 20 mg by mouth daily. 7 Active acetaminophen (TYLENOL 8 HOUR) 650 mg 8 hr tablet Take 650 mg by mouth every 8 hours as needed. Active loratadine (CLARITIN) 10 mg tablet Take 10 mg by mouth daily. Active multivitamin tablet Take by mouth. Activ e fluticasone propionate (FLONASE) 50 mcg/actuation nasal spray 2 Sprays by Each Nare route daily. Active clotrimazole-be tamethasone (LOTRISONE) 1-0.05 % cream Apply topically 2 times daily. Active inhalational spacing device (Aerochamber MV) inhaler 1 Device by Does not apply route as needed (wheezing). 9 Active albuterol HFA (PROAIR HFA ; PROVENTIL HFA ; VENTOLIN HFA) 90 mcg/actuation inhaler INHALE 2 PUFFS INTO THE LUNGS EVERY 4 HOURS NEEDED FOR COUGH OR WHEEZING FOR UP TO 30 DAYS. 8.5 g 1 4 Active Active Problems Problem Noted Date Diagnosed Date Severe obesity (BMI 35.0-39. 9) with [place]bidity [place] [place] [facility] [place] 02/12/2019 Chronic obstructive bronchitis [place] [place] [facility] V28[place] 03/27/2017 MERLE on CPAP 03/27/2017 Tobacco dependence syndrome 03/27/2017 Encounters Date Type Department Care Team Description 11/05/2024 10:30 AM EDT Office Visit Orthopedic Surgery - [address] [id number] William Serrano, DPM Dermatophytosis of nail (Primary Dx); Pain in toe of right foot; Pain in toe of left foot; Corns and callosities; Acquired hallux valgus of left foot; Acquired hallux valgus of right foot; Metatarsalgia of both feet; Bilateral femoral artery stenosis [place] [place] from Last 3 Months Medical History Medical History Date Comments MERLE on CPAP 03/27/2017 DX:[facility]LE on CPAP Chronic obstructive bronchit is [place] [place] [facility] [place] 03/27/2017 DX:Chronic obstructive bron chitis (HCC) Tobacco dependence syndrome 03/27/2017 DX:T obacco dependence syndrome Severe obesity (BMI 35.0-39. 9) with comorbidity [place] [place] [facility] [place] 02/12/2019 DX:Severe obesi ty (BMI 35.0- 39.9) with comorbidity ([facility]) Social History Tobacco Use Types Packs/Day Years Used Date Smoking Tobacco: Every Day Cigarettes Smokeless Tobacco: Never Alcohol Use Standard Drinks/Week Comments Yes 0 (1 standard drink = 0.6 oz pur e alcohol) Sex and Gender Information Value Date Recorded Sex Assigned at Not on file Legal Sex Male 6:13 PM EST Gender Identity Not on file Sexual Orientation Not on file Obstetrics History Last Filed Vital Signs Vital Sign Reading Time Taken Comments Blood Pressure 110/64 06/04/2024 9:51 AM EDT Sit ting L Arm Pulse 59 06/04/2024 9:51 AM EDT Temperature - - Respiratory Rate - - Oxygen Saturation - - Inhaled Oxygen Concentration - - Weight 74.4 kg (164 lb) 11/05/2024 10:0 2 AM EDT Height 157.5 cm (5' 2.01 ) 11/05/2024 1 0:02 AM EDT Body Mass Index 29.99 11/05/2024 10:02 AM EDT Plan of Treatment Upcoming Encounters Date Type Department Care Team (Late st Contact Info) Description 01/07/2025 8:45 AM EDT Office Visit Pulmonolgy - [facility] [address] [facility] [address] [place] [id number] Ellie Roldan MD [facility] [address] [place] [address] 02/08/2025 8:30 AM EDT Office Visit Orthopedic Surgery - [facility] [address] [facility] [address] [place] [id number] William Serrano DPM [address] [facility] [address] [place] [address] Health Maintenance Due Date Last Done Comments DTaP,Tdap,and Td Vaccines (1 - Tdap) 1982 Zoster Vaccines (1 of 2) 2013 Cholesterol Screening (Lipid Panel) 07/28/2022 Colorectal Cancer Screening: Colonoscopy 07/28/2022 Depression Screening 07/28/2022 HIV Screening 07/28/2022 Hepatitis C Screening 07/28/2022 Medicare Annual Wellness Visit 07/28/2022 Social Influencers of Health Screening 07/28/2022 RSV Immunization Adult Patients (1 - Risk 60-74 years 1-dose series) 2023 COVID-19 Vaccine ( season) 2024 06/20/2023, 07/24/2022, 12/15/2021, Additional history exists Influenza Vaccine (Season Ended) 2025 06/06/2023, 05/15/2021, 05/12/2019, Additional history exists Pneumococcal Vaccine: 50+ Years Completed 07/01/2024 Pneumococcal Vaccine: Pediatrics (0 to 5 Years) and At-Risk Patients (6 to 64 Years) Completed 07/01/2024 HIB Vaccines Aged Out No longer eligi ble based on patient's age to complete this topic HPV Vaccines Aged Out No longer eligi ble based on patient's age to complete this topic Hepatitis A Vaccines Aged Out No long er eligible based on patient's age to complete this topic Hepatitis B Vaccines Aged Out No long er eligible based on patient's age to complete this topic IPV Vaccines Aged Out No longer eligi ble based on patient's age to complete this topic MMR Vaccines Aged Out No longer eligi ble based on patient's age to complete this topic Meningococcal ACWY Vaccine Aged Out N o longer eligible based on patient's age to complete this topic Meningococcal B Vaccine Aged Out No l onger eligible based on patient's age to complete this topic RSV Immunization Patients Under 20 months Aged Out No longer eligible based on patient's age to complete this topic Varicella Vaccines Aged Out No longer eligible based on patient's age to complete this topic Insurance MEDICAID - [place] MEDICARE Care Teams Instrument Operator Relationship Specialty Start Date End Date Joyce Mitchell MD [address] [place] [address] PCP - General Internal Medicine 08/29/17
--- NOTE | 2024-12-10 09:51 | MHC.AU.HA3 ---
Hearing Instrument Follow-Up- Binaural Date of Visit: 12/10/24 Right Ear: Iraj, Model, Color, Serial Number: Adore [id number] SN: [id number] Color: Beige Previous SN: [id number] (LOST) Nursing Program Director Repair Warranty: 04/14/2025 Nursing Program Director Loss and Damage Warranty: USED [facility] Service Plan: 04/04/2023 Battery Size: 675 Electronics Engineering Technician/Slim Tube: Earmold/Dome/CShell/SlimTip:Microsonic Shell (Red) Type of Wax Guard: Dispensed By: [facility] Date of Fittin04/04/2022 Left Ear: Iarj, Model, Color, Serial Number: Adore [id number] SN: [id number] Color: Beige Previous SN: [id number] (LOST) Nursing Program Director Repair Warranty: 04/14/2025 Nursing Program Director Loss and Damage Warranty: USED [facility] Service Plan: 04/04/2023 Battery Size: 675 Electronics Engineering Technician/Slim Tube: Earmold/Dome/CShell/SlimTip: Microsonic Shell (Red) Type of Wax Guard: Dispensed By: [facility] Date of Fittin04/04/2022 Follow-Up Summary: HAs d/o for cleaning. No record of these devices on file-- [employer] S III UPs SNs L: [id number], R: [id number]. Confirmed with [employer] these are registered to [employer] in 2010. Cleaned earmolds, replaced america covers, and retubed, listening check ok. Spoke with care facility to let them know these are older devices, they state he wears them intermittently and these were found recently. Ok to picker feeder. Bill to . Recommendations: Recommendations: Hearing instrument follow-up or maintenance as needed. Diagnosis Code(s): Primary Diagnosis: H90.6 Mixed Hearing Loss, Bilateral Signature: Provider: Antonella Luevano, [facility]
== END 2024-12-08 13:06 | disposition home or self-care (01) ==
LOC: HO.HAP 13:05
PROVIDERS: Visit Provider Internal Medicine
DX: Z13.89 Encounter for screening for other disorder (principal)

== ENCOUNTER 2024-12-10 12:07 | Outpatient (REF) | payer MEDICARE, MEDICAID, SELFPAY ==
--- OUTSIDE RECORDS SUMMARY | 2024-12-10 14:24 | XMS_ITS | Data Portability ---
Author Organization [place] - [facility], Allergy Address [address] [place] [address] Care Team Providers Care Director Orange Name Role Phone IDANIA LOPEZ Primary Care Provider [phone] Assessment Encounter Date Assessment Date Assessment LastModified [...] 0.1 % ear drops,carolyn pension 2024 025 [facility], [address] [place] [address], [id number], 09/24/2024 15:19:57 Ciprodex 0.3 %-0.1 % ear drops,carolyn pension 2023 024 [facility], [address] [place] [address], [id number], 05/15/2024 15:53:11 mupirocin 2 % topical ointment 2023 024 [facility], [address] [place] [address], [id number], 04/01/2024 14:47:53 Patient TargetsNo targets recorded. Patient InstructionsNo instructions recorded. Reason for Referral None Reported. Problems Name Problem SNOMED Code Status Onset Date Resolution Date Notes Provider Name and Address Organization Details Recorded Time Bilateral chronic mastoidit is 47991116152 87209 Active 2015 Chronic mastoidit is, bilateral ; Note: Date Diagnosed : 08/23/2015 4:50 PM (H70.13) Not Available [facility] 4 02:21:38 Chronic right mastoidit is 79835555349 55193 Active 2021 Chronic mastoidit is, right ear; Note: Date Diagnosed : 2 10:14 AM (H70.11) Not Available [facility] 4 02:21:56 Chronic rhinitis 08960239 Active 2015 Chronic rhinitis; Note: Date Diagnosed : 01/06/2016 2:18 PM (J31.0) Not Available [facility] 4 02:22:11 Gastroeso phageal reflux disease without esophagit is 734588042 Active 2016 Gastro-es ophageal reflux disease without esophagit is; Note: Date Diagnosed : 7 10:17 AM (K21.9) Not Available [facility] 4 02:22:16 Mixed conductiv e and sensorine ural hearing loss, bilateral 075080490 Active 2015 Mixed hearing loss, bilateral ; Note: Date Diagnosed : 05/10/2015 3:04 PM (389.22) ; Start Date : 5 Mixed conductiv e and sensorine ural hearing loss, bilateral ; Note: Date Diagnosed : 05/03/2016 4:16 PM (H90.6) Not Available [facility] 4 02:22:13 Otorrhea of left ear 56658466049 65951 Active 2016 Otorrhea, left ear; Note: Date Diagnosed : 12/12/2016 11:02 AM (H92.12) Not Available [facility] 4 02:22:07 Stomatiti s 13265020 Active 2016 Oral thrush; Note: Date Diagnosed : 11/26/2016 4:56 PM (B37.0) Not Available [facility] 4 02:21:53 Candidias is of mouth 37390920 Active 2016 Oral thrush; Note: Date Diagnosed : 11/26/2016 4:56 PM (B37.0) Not Available [facility] 4 02:21:53 Otorrhea of right ear 02127366946 41674 Active 2015 Otorrhea, right ear; Note: Date Diagnosed : 04/04/2016 12:31 PM (H92.11) Not Available [facility] 4 02:21:59 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; Note: Date Diagnosed : 01/06/2016 2:07 PM (383.33) Not Available [facility] 4 02:21:51 Asthma 720422130 Active 2016 Other asthma; Note: Date Diagnosed : 11/26/2016 4:58 PM (J45.998) Not Available [facility] 4 02:22:11 Otitis externa of right ear 22550090514 31510 Active 2017 Other otitis externa, right ear; Note: Date Diagnosed : 10/31/2017 2:17 PM (H60.8X1) Not Available [facility] 4 02:22:00 Abrasion of skin of right ear 36667839297 276213 Active 2017 Abrasion of right ear, initial encounter ; Note: Date Diagnosed : 8 3:49 PM (S00.411A ) Not Available [facility] 4 02:21:59 Otorrhea of bilateral ears 04685252493 45132 Active 2016 Otorrhea, bilateral ; Note: Date Diagnosed : 11/26/2016 4:56 PM (H92.13) Not Available [facility] 4 02:22:12 Chronic mastoidit is 45860339 Active 2013 Chronic mastoidit is; Note: Date Diagnosed : 4 4:34 PM (383.1) Not Available [facility] 4 02:21:36 Granuloma tous disorder of the skin and subcutane ous tissue 742795135 Active 2018 Granuloma tous disorder of the skin and subcutane ous tissue, unspecifi ed; Note: Date Diagnosed : 12/18/2018 4:17 PM (L92.9) Not Available [facility] 4 02:21:57 Tobacco user 410260361 Active 2016 Tobacco use NOS; Note: Date Diagnosed : 11/26/2016 4:58 PM (Z72.0) Not Available [facility] 4 02:21:41 Postmasto idectomy complicat ion 07443691 Active 2016 Other disorders following mastoidec harley, right ear; Note: Date Diagnosed : 04/18/2017 3:01 PM (H95.191) Other disorders following mastoidec harley, bilateral ears; Note: Date Diagnosed : 04/04/2016 6:13 PM (H95.193) ; Start Date : 6 Not Available [facility] 4 02:22:08 Dysphonia 25112467 Active 2015 Hoarsenes s; Note: Date Diagnosed : 6 3:35 PM (R49.0) Not Available [facility] 4 02:22:19 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 Procedures Surgical History Date Name Laterality Status Provider Name and Address Organization Details Recorded Time 5 Debridement of Mastoid Cavity right completed KINGSLEY DELA CRUZ PA-C [address] [facility],KAREN [facility], [place], [address], [place] - [facility] 09/24/2024 16:37:26 4 Debridement of Mastoid Cavity right completed MARIO DIAS PA-C [address] [facility],[place] [address], [place], [address], [place] - [facility] 05/15/2024 16:08:26 Debridement of Mastoid Cavity bilat completed MARIO DIAS PA-C [address] [place] [address],[place] [address], [place], [address], [place] - [facility] 04/01/2024 14:37:48 Imaging Results None recorded. Procedure Notes None recorded. Medical Equipment None Reported. Medications Name Sig Start Date Stop Date Status Note LastModified by Organization Details LastModified Time Prescript ion - New active Rx^Rx_20 [id number] Not Available Not Available Not Available Singulair 10 mg tablet 1 tablet by mouth 2014 active Medicati on ID: 32635 Du ration Value: 30 Brand Name: Singulai r Send Method: E-Prescr ibed Sub s Allowed: subs OK Speci al Instruct ion: Take 1 tablet by mouth every day in the evening Medicati onGeneri cName: Singulai r Not Available Not Available Not Available multivita min tablet 2013 active Medicati on ID: [id number] Br and Name: multivit aguilera Sen d Method: E-Prescr ibed Sub s Allowed: subs OK Medic ationGen ericName : multivit aguilera Not Available Not Available Not Available clotrimaz ole 10 mg sanya 1 sanya in mouth 2015 active Medicati on ID: [id number] D uration Value: 14 Prescri bed By Name: JORDIN Canales nd Name: clotrima zole Sen d Method: E-Prescr ibed Sub s Allowed: subs OK Medic ationGen ericName : clotrima zole Not Available Not Available Not Available loratadin e 10 mg disintegr ating tablet 2015 active Medicati on ID: [id number] B rand Name: loratadi ne Send Method: E-Prescr ibed Sub s Allowed: subs OK Medic ationGen ericName : loratadi ne Not Available Not Available Not Available Lotrisone 1 %-0.05 % topical cream 04/24 completed Medicati on ID: [id number] P rescribe d By Name: JORDIN Dickerson nd Name: Lotrison e Send Method: E-Prescr ibed Sub s Allowed: subs OK Speci al Instruct ion: apply to external right ear bid X 2 weeks Me dication GenericN yoav: Lotrison e Not Available Not Available Not Available Atrovent 0.03 % nasal spray 2 spray into both nostrils 2015 active Medicati on ID: [id number] P rescribe d By Name: JORDIN Canales nd Name: Atrovent Send Method: E-Prescr ibed Sub s Allowed: subs OK Medic ationGen ericName : Atrovent Not Available Not Available Not Available bacitraci n zinc 500 unit/gram topical ointment 2013 active Medicati on ID: [id number] Br and Name: bacitrac in zinc Sen d Method: E-Prescr ibed Sub s Allowed: subs OK Medic ationGen ericName : bacitrac in zinc Not Available Not Available Not Available Ciloxan 0.3 % eye drops 4 drop 2019 active Medicati on ID: [id number] D uration Value: 10 Prescri bed By Name: Bebo Olguin MD Brand Name: Ciloxan Send Method: E-Prescr ibed Sub s Allowed: subs OK Speci al Instruct ion: Instill 3-4 drops twice a day into the affected ear. Med icationG enericNa me: Ciloxan Not Available Not Available Not Available omeprazol e 40 mg capsule,d elayed release 09/24 completed Medicati on ID: [id number] D uration Value: 30 Prescri bed By Name: JORDIN Hagan nd Name: omeprazo le Send Method: E-Prescr ibed Sub s Allowed: subs OK Speci al Instruct ion: TAKE ONE CAPSULE EVERY DAY [facility] Not Available Not Available Not Available TobraDex 0.3 %-0.1 % eye ointment 01/05 completed Medicati on ID: [id number] P rescribe d By Name: JORDIN Canales nd Name: TobraDex Send Method: E-Prescr ibed Sub s Allowed: subs OK Speci al Instruct ion: as directed Medicat ionGener icName: TobraDex Not Available Not Available Not Available acetamino phen ER 650 mg tablet,ex tended release active Not Available Not Available Not Available Diflucan 100 mg tablet 1 tablet by mouth 2019 active Medicati on ID: 285893 D uration Value: 7 Prescri bed By Name: Bebo Olguin MD Brand Name: Diflucan Send Method: E-Prescr ibed Sub s Allowed: subs OK Medic ationGen ericName : Diflucan Not Available Not Available Not Available sulfaceta mide sodium 10 % eye drops 2020 active Medicati on ID: [id number] D uration Value: 14 Brand Name: sulfacet amide sodium S end Method: E-Prescr ibed Sub s Allowed: subs OK Speci al Instruct ion: 4 drops to right ear TID x 14 days Med icationG enericNa me: sulfacet amide sodium Not Available Not Available Not Available clotrimaz ole 1 % topical solution 04/24 completed Medicati on ID: 885811 P rescribe d By Name: Janice Hdz [...] mg tablet 2013 active Medicati on ID: 61417 Br and Name: Tylenol Send Method: E-Prescr [...] a day 2022 active Medicati on ID: 208204 D uration Value: 14 Prescri bed By [...] mg capsule 2013 [place] Medicati [place] ID: [id number] Br and Name: Prozac S end Method: [...] injection solution 2015 active Medicati on ID: [id number] B rand Name: Phenerga n Send Method: E-Prescr ibed Sub s Allowed: subs OK Medic ationGen ericName : Phenerga n Not Available Not Available Not Available neomycin- polymyxin -hydrocor t 3.5 mg-10,000 unit/mL-1 % ear drops,carolyn p 11/20 completed Medicati on ID: 973218 P rescribe d By Name: JORDIN Canales nd Name: neomycin -polymyx in-HC Se nd Method: E-Prescr ibed Sub s Allowed: subs OK Speci al Instruct ion: 8 drops to affected ear BID X 14 days Med icationG enericNa me: neomycin -polymyx in-HC Not Available Not Available Not Available TobraDex 0.3 %-0.1 % eye drops,carolyn pension Apply 2022 active Medicati on ID: [id number] P rescribe d By Name: Manasa Dumont MD Brand Name: TobraDex Send Method: E-Prescr ibed Sub s Allowed: subs OK Speci al Instruct ion: Instill 15-0 drops in the both ears BID for 21 days Med icationG enericNa me: TobraDex Not Available Not Available Not Available Neosporin (eunice-anahy- polym) 3.5 mg-400 unit-5,00 0 unit/gram top ointment 10/02 completed Medicati on ID: [id number] P rescribe d By Name: JORDIN Canales nd Name: Neospori n (eunice-anahy -polym) Send Method: E-Prescr ibed Sub s Allowed: subs VLADISLAV saldaña Instruct ion: Apply to ulcer on right ear BID X 7 days [facility] me: Neospori n (eunice-anahy -polym) Not Available Not Available Not Available neomycin- bacitraci n-poly-HC 3.5 mg-400-10 ,000 unit/g-1 % eye ointment 11/20 completed Medicati on ID: [id number] P rescribe d By Name: JORDIN Canales nd Name: neomycin -bacitra heriberto-poly -HC Send Method: E-Prescr ibed Sub s Allowed: subs VLADISLAV saldaña Instruct ion: To be applied to external ears as directed ; bring ointment to ENT appointm ents [facility] me: neomycin -bacitra heriberto-poly -HC Not [...] layed release 2015 active Medicati on ID: [id number] B suzanna Name: omeprazo le Send Method: [...] Updated DateTime 05/15/2024 160.02 cm 29.8 kg/m2 75698.52 g Araseli Guerrero [facility] 05/15/2024 15:41:09 Date Recorded Body height Body mass index (BMI) Body weight Provider Name and Address Organization Details Last Updated DateTime 09/24/2024 152.4 cm 31.6 kg/m2 18551.96 g Meredith Caba [facility] 09/24/2024 14:36:58 Date Recorded Body height Body mass index (BMI) Body weight Provider Name and Address Organization Details Last Updated DateTime 10/15/2024 165.1 cm 27.5 kg/m2 04388.74 g Fay Garcia [facility] 10/15/2024 13:01:16 Social History None recorded. Functional Status None recorded. Mental Status None recorded. Family History Nothing Reported. Medical History No medical history recorded. Past Encounters Encounter ID Performer Location Encounter Start Date Encounter Closed Date Diagnosis/Indication Diagnosis SNOMED-CT Code Diagnosis ICD10 Code Diagnosis Note [id number] SHAHIDA JACOB MD [facility] [address] [address] 04/01/2024 13:50:59 04/01/2024 14:31:34 Chronic ulcer of skin of right ear [id number] 8193002 L98.499 Bilateral chronic mastoiditis 1352648446 385400 H70.13 [id number] SHAHIDA JACOB MD [facility] [address] [address] 05/15/2024 15:34:07 05/15/2024 15:54:49 Otorrhea of right ear 7473942663 981328 H92.11 Bilateral chronic mastoiditis 0110312072 374713 H70.13 Granulomat ous disorder of the skin and subcutaneous tissue 288097443 L92.9 [id number] MELANIA HENAO MD [facility] [address] [address] 09/24/2024 14:22:05 09/24/2024 15:14:59 Otorrhea of right ear 0780833181 936093 H92.11 Impacted c erumen of bilateral ears 4012586341 776965 H61.23 Postmastoi dectomy complication 73360970 H95.199 [id number] JEANINE LAMAR MD [facility] [address] [address] 10/15/2024 12:48:17 10/15/2024 13:20:39 Otitis externa of right ear 5458519959 380569 H60.8X1 Postmastoi dectomy complication 15152287 H95.199 Health Concerns Section Related Observation LastModified by Organization Detai ls LastModified Time None Recorded Concern Status LastModified by Organization Details LastModified Time None Recorded Advance Directives Directive None Recorded Payers Encounter Date Sequence Insurance Name Policy Number Policy Sommer Covered Member ID Sommer Member ID Guarantor Name 05/15/2024 1 MEDICARE [place] [facility] Artis John Alfredo [id number] Artis Lopez Alfredo 09/24/2024 1 MEDICARE [place] [facility] Artis Lopez Alfredo [id number] Artis Lopez Alfredo 10/15/2024 1 [place] [facility] Artis Lopez Alfredo [id number] Artis Lopez Alfredo 10/15/2024 2 [place] [facility] Artis Ruizcalves [id number] Artis Fuentes Notes Date Note Type Note Provider Name and Address Organization Details Recorded Time 04/01/2024 text/html 59-year-old male with developmental delay presents for bilateral mastoid debridement. [facility] Health Aide from his group living facility reports no otorrhea or concerns about hearing. The patient has bilateral hearing aids which he wears 11/03. He has been complaining of a sore spot on his right ear. SHAHIDA AMBROCIO MD [address] [place] [address], [address], [facility] 04/01/2024 15:09:15 05/15/2024 text/html 59-year-old male with bilateral canal wall down mastoidectomy and developmental delay presents for reevaluation. They have been using mupirocin for localized infection on the pinna. Patient however began to develop otorrhea and bleeding from the right ear. SHAHIDA AMBROCIO MD [address] [facility],[address], [address], [facility] [place] 05/15/2024 16:50:03 09/24/2024 text/html 59-year-old male with developmental delay and bilateral canal wall down mastoidectomy presents for reevaluation of right sided otorrhea. He denies pain. No obvious hearing changes. MELANIA HENAO MD [address] [facility],[address], [address], [facility] 09/25/2024 21:40:00 10/15/2024 text/html 59-year-old male with developmental delay and bilateral canal wall down mastoidectomy presents for reevaluation of right sided otorrhea. No new concerns today. JEANINE LAMAR MD [address] [facility],[address], [address], [facility] 10/16/2024 08:07:36
--- OUTSIDE RECORDS SUMMARY | 2024-12-10 14:24 | XMS_ITS | Clinical Summary ---
Author Organization [facility] Address [address] [place] [address] Phone Care Team Providers Care Supervisor Bindery Name Role Phone Joyce Mitchell MD Primary Care Provider [phone] Allergies No known active allergies Medications ARIPiprazole [...] Severe obesity (BMI 35.0-39. 9) with [place]bidity [place] [place] [facility] [place] 02/12/2019 Chronic obstructive bronchitis [place] [place] [facility] 03/27/2017 MERLE on CPAP 03/27/2017 Tobacco dependence syndrome 03/27/2017 Encounters Date Type Department Care Team Description 11/05/2024 10:30 AM EDT Office Visit Orthopedic Surgery - [address] [address] William Serrano, DPM Dermatophytosis of nail (Primary Dx); Pain in toe of right foot; Pain in toe of left foot; Corns and callosities; Acquired hallux valgus of left foot; Acquired hallux valgus of right foot; Metatarsalgia of both feet; Bilateral femoral artery stenosis [place] [place] from Last 3 Months Medical History Medical History Date Comments MERLE on CPAP 03/27/2017 DX:MERLE on CPAP Chronic obstructive bronchit is [place] [place] [facility] [place] 03/27/2017 DX:Chronic obstructive bron chitis (HCC) Tobacco dependence syndrome 03/27/2017 DX:T obacco dependence syndrome Severe obesity (BMI 35.0-39. 9) with comorbidity [place] [place] [facility] [place] 02/12/2019 DX:Severe obesi ty (BMI 35.0- 39.9) with comorbidity ([facility]) Social History Tobacco Use Types Packs/Day Years [...] 8:45 AM EDT Office Visit Pulmonolgy - [place] [facility] [address] [place] [phone] Ellie Roldan MD [address] [facility] [address] [place] [address] 02/08/2025 8:30 AM EDT Office Visit Orthopedic Surgery - [place] [address] [facility] [address] [place] [phone] William Serrano DPM [facility] [address] [place] [address] Health Maintenance Due Date Last Done Comments [...] Insurance [place] - [place] Care Teams Supervisor Bindery Relationship Specialty Start Date End Date Joyce Mitchell MD [address] [place] [address] PCP - General Internal Medicine 08/29/17
--- OUTSIDE RECORDS SUMMARY | 2024-12-10 14:24 | XMS_ITS | Data Portability ---
Author Organization [place] - [facility] Address [address] [place] [id number] Care Team Providers Care Video Technician Name Role Phone IDANIA LOPEZ Primary Care Provider [phone] Assessment Encounter Date Assessment Date Assessment LastModified by Organization Details LastModified Time 10/08/2018 10/08/2018 Overview/History : 53 y/o male w/PMH of Asthma w/borderline emphysema, obesity, mild MR, psychotic d/o, and bilateral hearing impairment wearing hearing aides, who is seen today for complaint of sore throat. Staff states that he was placed on Neomycin-Polymix in B Sulfate ear drops bid x14 days for recurrent ear infection started on 10/03/18. Staff states that he felt warm this morning but did not check his temperature and gave him Tylenol 650mg tab PO at 0900. Exam: Calm, cooperative, TM clear, nares patent, no pain to palpation of frontal or maxillary sinuses, mild inflammation noted to the posterior oropharynx, no exudates or lesions, no lymphadenopathy, normal S1, S2, rhonchi noted bilaterally lower bases does not clear with cough DDx considered, but not limited to: acute pharyngitis - Most likely, sore throat, afebrile, chronic heavy smoker (1.5 ppd), chronic cough, negative Rapid strep, no exudates or lesions URI - Not likely, negative for wheezing, fever, malaise, nasal congestion, ear pain Work up/Results: Rapid Flu A&B - negative Rapid Strep - negative Plan/Discussion: Most likely acute viral pharyngitis. Gargle with warm salt water to relieve the pain. Use Throat Coat Tea for the sore throat pain. Tylenol as directed for the pain. F/U w/PCP within the next two weeks. If no relief call back . In order to obtain further information and compare any laboratory results/values, I have accessed patient records on the [employer]. This information was pertinent in my medical decision making today. Time On Scene with Patient: 01:15:56 Not available 10/10/2018 08:37:53 02/15/2019 02/15/2019 Overview/History : This is a 54 y/o male established pt to , new to provider, being seen today for wound on right fore arm. Pt reports bump came out of no where and is now red, getting larger, and hurting some. He reports small amount of drainage from the area that is clear yellow-katina with redness and warmth surrounding. He denies injury, fall, or laceration. He bas been keeping the area covered with two bandaides. Pt denies decrease in ROM, loss of sensation, sweats, fevers, or chills. He has not been using anything topically on area for treatment at this time. Denies insect bites. Significant PMHX of: asthma, copd, psychiatric disorder, mild MR, hearing impairment Exam: Constitutional: General Appearance: healthy-appearin g and well-nourished. Level of Distress: NAD. Ambulation: ambulating normally. Psychiatric: Mental Status: active and alert and abnormal affect (flat). Orientation: to time, place, and person. Eyes: Lids and Conjunctivae: non-injected. Vision: acuity grossly intact. Neck: Lymph Nodes: no axillary LAD (no brachial). Pulmonary: Auscultation: no wheezing, rales/crackles, or rhonchi and breath sounds normal and good air movement. Cardiovascular: Heart Auscultation: normal S1 and S2 and RRR and no murmurs. Musculoskeletal: : Motor Strength and Tone: normal. Joints, Bones, and Muscles: normal movement of all extremities. Extremities: no edema. Skin: Inspection and palpation: no rash, lesions, or ulcer and good turgor and nodule (quarter sized abscess present right forearm with small opening that is draining serosang drainage; mild erythema surrounding abscess with induration, tenderness to palpation). DDx considered, but not limited to: cellulitis with abscess Work up/Results: not indicated Plan/Discussion: Abscess: Small quarter size abscess present on right forearm already open and draining. I&D not indicated at this time. Treat with Bactrim BID x 7 days. No CI for abx choice. Wound cleaned and wound care and cleaning discussed with patient and facility staff. Warning s/sx of worsening infection d/w pt and facility staff and need for close f/u with PCP if worsening or no improvement in 2-3 days. Pt verbalized understanding and was agreeable with above plan of care. Time On Scene with Patient: 00:19:31 Not available 02/15/2019 12:33:03 08/15/2019 08/15/2019 Overview/History : 54-year-old male with 1 week of left 4th finger pain after cutting his fingernails too short. Denies fever, chest pain, shortness of breath. Has tried nothing to alleviate. Exam: Afebrile male, heart sounds regular, lungs clear. Erythema, purulent discharge, edema noted about the area surrounding the nail bed of the 4th finger. Palpation. DDx considered, but not limited to: Consider a paronychia. Consider cellulitis however no calor noted. Consider ingrown fingernail however none noted. Work up/Results: Plan/Discussion: Doxycycline as prescribed, patient received an initial dose at 1648. There was no notable fluid collection to perform I&D. Advised warm water soaks throughout the day. If I keep area clean and covered with nonstick bandage, can use topical antibiotic ointment to the area. Monitor for fever, worsening pain, redness, worsening or lack of improvement of symptoms and call me or go to the ED if notes. In order to obtain further information and compare any laboratory results/values, I have accessed old patient records. This information was pertinent in my medical decision making today. [email or web address] Not available 08/15/2019 17:04:02 Plan of Treatment Reminders Order Date Submit Date Provider Last Modified By Organization Details Last Modified Time Details Appointments None recorded. Lab urinalysi s, dipstick 2018 019 [facility], [address], [place], [address], 9 12:26:39 rapid flu (A+B) 2018 019 [facility], [address], [place], [address], 9 12:26:13 rapid strep group A, throat 2018 [facility], [address] [place], [address], 9 12:26:24 Referral None recorded. Procedures None recorded. Surgeries None recorded. Imaging None recorded. Medication Orders doxycycli ne hyclate 100 mg capsule 2018 019 INTERFACE [id number], [address] [place], [address], 9 16:49:22 doxycycli ne hyclate 100 mg capsule 2018 019 [email or web address] Not available 0 18:14:00 sulfameth oxazole 800 mg-trimet hoprim 160 mg tablet 2018 019 lsaloio [id number], [address] [place], [address], 9 16:42:36 Patient TargetsNo targets recorded. Patient Instructions Encounter Date Encounter Id Patient Instructions Last Modified By Organization Details Last Modified Time 10/08/2018 [id number] Thank you for calling [facility] for your [facility] care needs. You were seen today for complaint of sore throat. Your strep test was negative and your flu test was negative. You also stated during your exam that it hurts when you urinate. We tested your urine and there was nothing abnormal. There is nothing that indicates you should have an antibiotic at this time. Your sore throat is most likely viral. You can gargle with warm salt water to relieve the pain. You can buy Throat Coat Tea at the grocery store or pharmacy and drink that for the sore throat pain. You can take Tylenol as directed for the pain. You should read the following instructions on how to care for your sore throat. Please call [facility] for any further urgent care needs. Follow-up with your PCP at your next scheduled appointment or sooner if needed. Sore Throat: Care Instructions Your Care Instructions Infection by bacteria or a virus causes most sore throats. Cigarette smoke, dry air, air pollution, allergies, and yelling can also cause a sore throat. Sore throats can be painful and annoying. Fortunately, most sore throats go away on their own. If you have a bacterial infection, your doctor may prescribe antibiotics. Follow-up care is a rodriguez part of your treatment and safety. Be sure to make and go to all appointments, and call your doctor if you are having problems. It's also a good idea to know your test results and keep a list of the medicines you take. How can you care for yourself at home? If your doctor prescribed antibiotics, take them as directed. Do not stop taking them just because you feel better. You need to take the full course of antibiotics. Gargle with warm salt water once an hour to help reduce swelling and relieve discomfort. Use 1 teaspoon of salt mixed in 1 cup of warm water. Take an ypav-ugs-fvofpki pain medicine, such as acetaminophen (Tylenol), ibuprofen (Advil, Motrin), or naproxen (Aleve). Read and follow all instructions on the label. Be careful when taking wvlr-fhv-hzffvjx cold or flu medicines and Tylenol at the same time. Many of these medicines have acetaminophen, which is Tylenol. Read the labels to make sure that you are not taking more than the recommended dose. Too much acetaminophen (Tylenol) can be harmful. Drink plenty of fluids. Fluids may help soothe an irritated throat. Hot fluids, such as tea or soup, may help decrease throat pain. Use wdly-eck-hirizax throat lozenges to soothe pain. Regular cough drops or hard candy may also help. These should not be given to young children because of the risk of choking. Do not smoke or allow others to smoke around you. If you need help quitting, talk to your doctor about stop-smoking programs and medicines. These can increase your chances of quitting for good. Use a vaporizer or humidifier to add moisture to your bedroom. Follow the directions for cleaning the machine. When should you call for help? Call your doctor now or seek immediate medical care if: You have new or worse trouble swallowing. Your sore throat gets much worse on one side. Watch closely for changes in your health, and be sure to contact your doctor if you do not get better as expected. Care instructions adapted under license by [facility]. This care instruction is for use with your licensed healthcare professional. If you have questions about a medical condition or this instruction, always ask your healthcare professional. [employer] disclaims any warranty or liability for your use of this information. Please seek care immediately if you develop any of the following symptoms: 1. Uncontrolled fever of at least 101? ? ?F or 38.4? ? ?C 2. Throat pain that is severe or does not start to improve within 5 to 7 days Call 911 or go to the emergency department if you: 1. Have trouble breathing 2. Cannot control your saliva (drooling) due to difficulty swallowing 3. Have swelling of the neck or tongue 4. Cannot move your neck or have trouble opening your mouth If you have additional concerns or develop a change in your condition between 8am-10pm, please call [employer] at [phone] to help navigate your care. Not available 10/10/2018 08:33:03 02/15/2019 [id number] skin abscess: ca re instructions Not available 02/15/2019 11:47:26 Please f/u woth your PCP if worsening or no improvement after antibiotic completion Thank you for your visit with [facility] today. You were seen today for treatment of a wound. Please seek immediate medical attention if you develop increased pain, redness, or swelling of your wound. Also, you should be evaluated if the wound becomes warm to the touch, or if there is a cloudy, yellow-brown discharge from the wound. There is always the possibility of a hidden tendon injury or foreign object in the wound. If you have problems moving your arm or leg, or if you see red streaks up the arm or leg, seek immediate medical attention. If you develop any new or worsening symptoms and need after hours care, please go to nearest ER and/or call 911. If you have additional concerns or develop a change in your condition between 8am-10pm, please call [employer] at [phone] to help navigate your care. Not available 02/15/2019 11:48:00 Reason for Referral None Reported. Results Created Date Observation Date Name Description Value Unit Range Abnormal Flag Note LastModifiedBy Organization Detail LastModifiedTime 10/08/19 19 10/08/2018 urina lysis , dipst ick Appearance clear Not Available [facility] [address] [address] [place], [address], 10/08/2018 12:25:34 10/08/1910/08/2018 urina lysis , dipst ick Color hart Not Available [facility] [address] [place], [address], 10/08/2018 12:25:34 10/08/1910/08/2018 urina lysis , dipst ick Glucose negati ve Not Available [facility] [address] [place], [address], 10/08/2018 12:25:34 10/08/1910/08/2018 urina lysis , dipst ick Bilirubin negati ve Not Available [facility] [address] [place], [address], 10/08/2018 12:25:34 10/08/1910/08/2018 urina lysis , dipst ick Ketones NEG Not Available [facility] [address] [place], [address], 10/08/2018 12:25:34 10/08/1910/08/2018 urina lysis , dipst ick Sp. [place] 1.015 Not Available [facility] [address] [place], [address], 10/08/2018 12:25:34 10/08/1910/08/2018 urina lysis , dipst ick Blood + Not Available [facility] [address] [place], [address], 10/08/2018 12:25:34 10/08/1910/08/2018 urina lysis , dipst ick pH 7.0 Not Available [facility] [address] [place], [address], 10/08/2018 12:25:34 10/08/1910/08/2018 urina lysis , dipst ick Protein positi ve Not Available [facility] [address] [place], [address], 10/08/2018 12:25:34 10/08/19 19 10/08/2018 urina lysis , dipst ick Urobilirubin negati ve Not Available [facility] [address] [place], [address], 10/08/2018 12:25:34 10/08/19 19 10/08/2018 urina lysis , dipst ick Nitrites NEG Not Available [facility] [address] [place], [address], 10/08/2018 12:25:34 10/08/19 19 10/08/2018 urina lysis , dipst ick Leukocytes NEG Not Available [facility] [address] [place], [address], 10/08/2018 12:25:34 10/08/19 19 10/08/2018 rapid strep group A, throa t Strep negati ve Not Available [facility] [address] [place], [address], 10/08/2018 12:20:21 10/08/19 19 10/08/2018 rapid flu (A+B) Flu A negati ve Not Available [facility] [address] [place], [address], 10/08/2018 12:19:43 10/08/19 19 10/08/2018 rapid flu (A+B) Flu B negati ve Not Available [facility] [address] [place], [address], 10/08/2018 12:19:43 Result Notes None recorded. Medical Equipment None Reported. Allergies No known drug allergies Medications Name Sig Start Date Stop Date Status Note LastModified by Organization Details LastModified Time doxycycline hyclate 100 mg capsule Take 1 capsule twice a day by oral route. 2019 active Not Available Not Available Not Avai lable sulfamethoxa zole 800 mg-trimethop rim 160 mg tablet Take 1 tablet every 12 hours by oral route for 7 days. 08/15 completed Not Available Not Available Not Available neomycin active Not Available Not Avai lable Not Available Claritin active Not Available Not Avai lable Not Available Prozac active Not Available Not Availa ble Not Available Tylenol active Not Available Not Avail able Not Available Prilosec active Not Available Not Avai lable Not Available Topamax active Not Available Not Avail able Not Available Abilify active Not Available Not Avail able Not Available Atrovent HFA active Not Available Not Available Not Available ProAir HFA active Not Available Not Av ailable Not Available Advair HFA active Not Available Not Av ailable Not Available Spiriva Respimat active Not Available Not Available Not Available Vitals Date Recorded Respiratory rate Body temperature Oxygen saturation Oxygen saturation in Arterial blood by Pulse oximetry Heart rate Systolic blood pressure Diastolic blood pressure Provider Name and Address Organization Details Last Updated DateTime 9 20 /min 98.1 [degF] 100 % 100 % 79 /min 124 mm[Hg] 74 mm[Hg] Not Available [facility] 9 16:46:10 Date Recorded Heart rate Respiratory rate Oxygen saturation Oxygen saturation in Arterial blood by Pulse oximetry Body temperature Systolic blood pressure Diastolic blood pressure Provider Name and Address Organization Details Last Updated DateTime 9 64 /min 20 /min 97 % 97 % 98.3 [degF] 122 mm[Hg] 70 mm[Hg] Not Available [facility] 9 11:56:37 Date Recorded Heart rate Body temperature Respiratory rate Oxygen saturation Oxygen saturation in Arterial blood by Pulse oximetry Systolic blood pressure Diastolic blood pressure Provider Name and Address Organization Details Last Updated DateTime 9 62 /min 97 [degF] 20 /min 98 % 98 % 102 mm[Hg] 58 mm[Hg] Not Available [facility] 9 11:40:59 Social History Question Answer Notes LastModified by Organizat ion Details LastModified Time Tobacco Smoking Status Current Every Day Smoker TONYA LAM NP [address], [place], [address], [place] [facility] 10/08/2018 12:03:10 Fall Risk: Do You Feel Unsteady When Standing Or Walking? No Information not available 10/08/2018 Marital Status Single Informatio n not available 10/08/2018 What Was The Date Of Your Most Recent Tobacco Screening? 02/15/2019 Information not available 03/12/2019 How Much Tobacco Do You Smoke? 0.5 PPD Information not available 10/08/2018 How Many Years Have You Smoked Tobacco? 22 Information not available 10/08/2018 Sex: Unknown Functional Status None recorded. Mental Status None recorded. Family History Relationship Description Onset Age of this Age Resolved Age Notes LastModified by Organization Details LastModified Time Father No current problems or disability Not available 09/20 12:01:54 Mother No current problems or disability Not available 09/20 12:01:54 Medical History Condition Response Coronary Artery Disease N Depression N COPD Y Diabetes N Cancer N Stroke N Asthma Y High Cholesterol N Pulmonary Embolism N Hypertension N Kidney Disease N Past Encounters Encounter ID Performer Location Encounter Start Date Encounter Closed Date Diagnosis/Indication Diagnosis SNOMED-CT Code Diagnosis ICD10 Code Diagnosis Note [id number] TONYA LAM NP [facility] [address] [place] [address] 10/08/2018 11:46:51 10/10/2018 19:11:14 Has a sore throat 827998042 J02.9 Dysuria 81102300 R30.0 Acute pharyngitis 387325 003 J02.9 Chronic ob structive pulmonary disease 25861249 J44.9 Heavy ciga rette smoker (20-39 cigs/day) 061630111 Z72.0 [id number] Grace Christian NP [facility] [address] [place] [address] 02/15/2019 11:35:00 02/17/2019 12:48:23 Abscess of skin and/or subcutaneous tissue 23105466 L02.91 [id number] ARTURO HERNANDEZ [facility] [address] [place] [address] 08/15/2019 16:41:09 08/17/2019 15:53:20 Paronychia of finger 478428946 L03.019 Health Concerns Section Related Observation LastModified by Organization Detai ls LastModified Time None Recorded Concern Status LastModified by Organization Details LastModified Time None Recorded Advance Directives Directive None Recorded Payers Encounter Date Sequence Insurance Name Policy Number Policy Sommer Covered Member ID Sommer Member ID Guarantor Name 10/08/2018 1 [place] [employer] [facility] Artis Fuentes [id number] Artis Fuentes 10/08/2018 2 [place] [facility] Artis Fuentes [id number] Artis Fuentes 02/15/2019 1 MEDICARE B-[place] [facility] Artis Fuentes [id number] Artis Fuentes 02/15/2019 2 [place] [facility] Artis Fuentes [id number] Artis Fuentes 08/15/2019 1 [place]ICARE B-[place]: [facility] Artis Fuentes [id number] Artis Fuentes 08/15/2019 2 [place] [facility] Artis Fuentes [id number] Artis Fuentes Notes Date Note Type Note Provider Name and Address Organization Details Recorded Time 10/08/2018 text/html Artis mccartney is a 53 y/o male w/PMH of Asthma w/borderline emphysema, obesity, mild MR, psychotic d/o, and bilateral hearing impairment wearing hearing aides, who is seen today for complaint of sore throat. Staff states that he was placed on Neomycin-Polymixi n B Sulfate ear drops bid x14 days for recurrent ear infection started on 10/03/18. Staff states that he felt warm this morning but did not check his temperature and gave him Tylenol 650mg tab PO at 0900. TONYA LAM, GIL [address] [place], [address], [place] [facility] 10/10/2018 08:38:02 02/15/2019 text/html Pt is being seen today for wound on right fore arm. Pt reports bump came out of no where and is now red, getting larger, and hurting some. He reports small amount of drainage from the area that is clear yellow-katina with redness and warmth surrounding. He denies injury, fall, or laceration. He bas been keeping the area covered with two bandaides. Pt denies decrease in ROM, loss of sensation, sweats, fevers, or chills. He has not been using anything topically on area for treatment at this time. Denies insect bites. Grace Christian NP [address], [place], [address], [place] [facility] 02/15/2019 12:33:19 08/15/2019 text/html 54-year-old male presents for evaluation finger concerned. He reports about a week ago he had cut his fingernails and cut one of them too short. States the area has been red and swollen and painful since then. States has used nothing to alleviate. Denies fever, chest pain, shortness of breath. ARTURO HERNANDEZ [address], [place], [address], [place] [facility] 08/15/2019 17:07:29
== END 2024-12-10 12:08 | disposition home or self-care (01) ==
LOC: HO.HAP 12:07
PROVIDERS: Visit Provider Internal Medicine
DX: Z46.1 Encounter for fitting and adjustment of hearing aid (principal); H90.6 Mixed conductive and sensorineural hearing loss, bilateral
CPT/HCPCS: 92593; 99499; V5266

== ENCOUNTER 2025-01-05 13:45 | Outpatient (REF) | payer MEDICARE, MEDICAID, SELFPAY ==
--- OUTSIDE RECORDS SUMMARY | 2025-01-05 14:55 | XMS_ITS | Data Portability ---
Author Organization [place] [facility] Address [address] [place] [id number] Care Team Providers Care Programs Manager Name Role Phone IDANIA LOPEZ Primary Care Provider [phone] Assessment Encounter Date Assessment Date Assessment LastModified [...] I have accessed patient records on the [employer]. This information was pertinent in [...] 019 [facility], [address], [place], [address], 9 12:26:39 rapid flu (A+B) 2018 019 [facility], [address], [place], [address], 9 12:26:13 rapid strep group A, throat 2018 [facility], [address] [place], [address], 9 12:26:24 Referral None recorded. Procedures None recorded. Surgeries None recorded. Imaging None recorded. Medication Orders doxycycli ne hyclate 100 mg capsule 2018 019 INTERFACE [id number], [address] [place], [address], 9 16:49:22 doxycycli ne hyclate 100 mg capsule 2018 019 sy[place] Not available 0 18:14:00 sulfameth oxazole 800 mg-trimet hoprim 160 mg tablet 2018 019 lsaloio [id number], [address] [place], [address], 9 16:42:36 Patient TargetsNo targets recorded. Patient Instructions Encounter Date Encounter Id Patient Instructions Last Modified By Organization Details Last Modified Time 10/08/2018 [id number] [facility]. You [...] 1 cup of warm water. Take an crrj-xlf-krxudvr pain medicine, such as acetaminophen (Tylenol), ibuprofen (Advil, Motrin), or naproxen (Aleve). Read and follow all instructions on the label. Be careful when taking wumx-zbi-opvsvmg cold or flu medicines and Tylenol at [...] soup, may help decrease throat pain. Use zgsn-nmu-cmauxgd throat lozenges to soothe pain. Regular cough [...] expected. Care instructions adapted under license by [facility]. This care instruction is for use with your licensed healthcare professional. If you have questions about a medical condition or this instruction, always ask your healthcare professional. [employer] disclaims any warranty or liability for your [...] in your condition between 8am-10pm, please call [employer] at [phone] to help navigate your care. Not available 10/10/2018 08:33:03 02/15/2019 [id number] skin abscess: ca re instructions Not available 02/15/2019 11:47:26 Please f/u woth your PCP if worsening or no improvement after antibiotic completion Thank you for your visit with [facility] today. You were seen today [...] in your condition between 8am-10pm, please call [employer] at [phone] to help navigate your care. Not available 02/15/2019 11:48:00 Reason for Referral None Reported. Results Created Date Observation Date Name Description Value Unit Range Abnormal Flag Note LastModifiedBy Organization Detail LastModifiedTime 10/08/19 19 10/08/2018 urina lysis , dipst ick Appearance clear Not Available [facility] [address] [address] [place], [address], 10/08/2018 12:25:34 10/08/1910/08/2018 urina lysis , dipst ick Color hart Not Available [facility] [address] [place], [address], 10/08/2018 12:25:34 10/08/1910/08/2018 urina lysis , dipst ick Glucose negati ve Not Available [facility] [address] [place], [address], 10/08/2018 12:25:34 10/08/1910/08/2018 urina lysis , dipst ick Bilirubin negati ve Not Available [facility] [address] [place], [address], 10/08/2018 12:25:34 10/08/1910/08/2018 urina lysis , dipst ick Ketones NEG Not Available [facility] [address] [place], [address], 10/08/2018 12:25:34 10/08/1910/08/2018 urina lysis , dipst ick Sp. Zwingle 1.015 Not Available [facility] [address] [place], [address], 10/08/2018 12:25:34 10/08/1910/08/2018 urina lysis , dipst ick Blood + Not Available [facility] [address] [place], [address], 10/08/2018 12:25:34 10/08/1910/08/2018 urina lysis , dipst ick pH 7.0 Not Available [facility] [address] [place], [address], 10/08/2018 12:25:34 10/08/1910/08/2018 urina lysis , dipst ick Protein positi ve Not Available [facility] [address] [place], [address], 10/08/2018 12:25:34 10/08/19 19 10/08/2018 urina lysis , dipst ick Urobilirubin negati ve Not Available [facility] [address] [place], [address], 10/08/2018 12:25:34 10/08/19 19 10/08/2018 urina lysis , dipst ick Nitrites NEG Not Available [facility] [address] [place], [address], 10/08/2018 12:25:34 10/08/19 19 10/08/2018 urina lysis , dipst ick Leukocytes NEG Not Available [facility] [address] [place], [address], 10/08/2018 12:25:34 10/08/19 19 10/08/2018 rapid strep group A, throa t Strep negati ve Not Available [facility] [address] [place], [address], 10/08/2018 12:20:21 10/08/19 19 10/08/2018 rapid flu (A+B) Flu A negati ve Not Available [facility] [address] [place], [address], 10/08/2018 12:19:43 10/08/19 19 10/08/2018 rapid flu (A+B) Flu B negati ve Not Available [facility] [address] [place], [address], 10/08/2018 12:19:43 Result Notes None recorded. Medical [...] /min 124 mm[Hg] 74 mm[Hg] Not Available [facility] 9 16:46:10 Date Recorded Heart rate Respiratory rate Oxygen saturation Oxygen saturation in Arterial blood by Pulse oximetry Body temperature Systolic blood pressure Diastolic blood pressure Provider Name and Address Organization Details Last Updated DateTime 9 64 /min 20 /min 97 % 97 % 98.3 [degF] 122 mm[Hg] 70 mm[Hg] Not Available [facility] 9 11:56:37 Date Recorded Heart rate Body temperature Respiratory rate Oxygen saturation Oxygen saturation in Arterial blood by Pulse oximetry Systolic blood pressure Diastolic blood pressure Provider Name and Address Organization Details Last Updated DateTime 9 62 /min 97 [degF] 20 /min 98 % 98 % 102 mm[Hg] 58 mm[Hg] Not Available [facility] 9 11:40:59 Social History Question Answer Notes LastModified by Organizat ion Details LastModified Time Tobacco Smoking Status Current Every Day Smoker TONYA LAM NP [address], [place], [address], [place] [facility] 10/08/2018 12:03:10 Fall Risk: [...] available 09/20 12:01:54 Medical History Condition Response Diabetes N Coronary Artery Disease N High Cholesterol N Pulmonary Embolism N Cancer N Hypertension N Stroke N Asthma Y COPD Y Depression N Kidney Disease N Past Encounters Encounter ID Performer Location Encounter Start Date Encounter Closed Date Diagnosis/Indication Diagnosis SNOMED-CT Code Diagnosis ICD10 Code Diagnosis Note [id number] TONYA LAM NP [facility] [address] [place] [address] 10/08/2018 11:46:51 10/10/2018 19:11:14 Has a sore throat 689020245 J02.9 Dysuria 80810798 R30.0 Acute pharyngitis 060785 003 J02.9 Chronic ob structive pulmonary disease 57827182 J44.9 Heavy ciga rette smoker (20-39 cigs/day) 105948558 Z72.0 [id number] Grace Christian NP [facility] [address] [place] [address] 02/15/2019 11:35:00 02/17/2019 12:48:23 Abscess of skin and/or subcutaneous tissue 24183187 L02.91 [id number] ARTURO HERNANDEZ [facility] [address] [place] [address] 08/15/2019 16:41:09 08/17/2019 15:53:20 Paronychia of finger 568133501 L03.019 Health Concerns Section Related Observation LastModified by Organization Detai ls LastModified Time None Recorded Concern Status LastModified by Organization Details LastModified Time None Recorded Advance Directives Directive None Recorded Payers Insurance Date Sequence Insurance Name Policy Number Policy Sommer Covered Member ID Sommer Member ID Guarantor Name 08/15/2019 2 [place] [facility] Artis Fuentes [id number] Artis Fuentes 08/15/2019 1 [place] [employer] Artis Fuentes [id number] Artis Fuentes 10/08/2018 1 *SELF PAY* Artis Fuentes [id number] Artis Fuentes Notes Date Note Type Note [...] Tylenol 650mg tab PO at 0900. TONYA LAM NP [address], [place], [address], [place] [facility] 10/10/2018 08:38:02 02/15/2019 text/html Pt is being [...] bites. Grace Christian NP [address], [place], [address], [place] [facility] 02/15/2019 12:33:19 08/15/2019 text/html 54-year-old male presents for evaluation finger concerned. He reports about a week ago he had cut his fingernails and cut one of them too short. States the area has been red and swollen and painful since then. States has used nothing to alleviate. Denies fever, chest pain, shortness of breath. ARTURO HERNANDEZ [address], [place], [address], [place] [facility] 08/15/2019 17:07:29
--- OUTSIDE RECORDS SUMMARY | 2025-01-05 14:55 | XMS_ITS | Data Portability ---
Author Organization [place] - [facility], Allergy Address [address] [place] [address] Care Team Providers Care Resource Protection Specialist Name Role Phone IDANIA LOPEZ Primary Care Provider [phone] Assessment Encounter Date Assessment Date Assessment LastModified [...] 0.1 % ear drops,carolyn pension 2024 025 [facility], [address] [place] [address], [phone], 09/24/2024 15:19:57 Ciprodex 0.3 %-0.1 % ear drops,carolyn pension 2023 024 [facility], [address] [place] [address], [phone], 05/15/2024 15:53:11 mupirocin 2 % topical ointment 2023 024 [facility], [address] [place] [address], [phone], 04/01/2024 14:47:53 Patient TargetsNo targets recorded. Patient InstructionsNo instructions recorded. Reason for Referral None Reported. Problems Name Problem SNOMED Code Status Onset Date Resolution Date Notes Provider Name and Address Organization Details Recorded Time Bilateral chronic mastoidit is 15735985092 45674 Active 2015 Chronic mastoidit is, bilateral ; Note: Date Diagnosed : 08/23/2015 4:50 PM (H70.13) Not Available [facility] 4 02:21:38 Chronic right mastoidit is 26388155736 09140 Active 2021 Chronic mastoidit is, right ear; Note: Date Diagnosed : 2 10:14 AM (H70.11) Not Available [facility] 4 02:21:56 Chronic rhinitis 92159924 Active 2015 Chronic rhinitis; Note: Date Diagnosed : 01/06/2016 2:18 PM (J31.0) Not Available [facility] 4 02:22:11 Gastroeso phageal reflux disease without esophagit is 851427344 Active 2016 Gastro-es ophageal reflux disease without esophagit is; Note: Date Diagnosed : 7 10:17 AM (K21.9) Not Available [facility] 4 02:22:16 Mixed conductiv e and sensorine ural hearing loss, bilateral 578193300 Active 2015 Mixed hearing loss, bilateral ; Note: Date Diagnosed : 05/10/2015 3:04 PM (389.22) ; Start Date : 5 Mixed conductiv e and sensorine ural hearing loss, bilateral ; Note: Date Diagnosed : 05/03/2016 4:16 PM (H90.6) Not Available [facility] 4 02:22:13 Otorrhea of left ear 82500823869 75284 Active 2016 Otorrhea, left ear; Note: Date Diagnosed : 12/12/2016 11:02 AM (H92.12) Not Available [facility] 4 02:22:07 Stomatiti s 01923351 Active 2016 Oral thrush; Note: Date Diagnosed : 11/26/2016 4:56 PM (B37.0) Not Available [facility] 4 02:21:53 Candidias is of mouth 38219887 Active 2016 Oral thrush; Note: Date Diagnosed : 11/26/2016 4:56 PM (B37.0) Not Available [facility] 4 02:21:53 Otorrhea of right ear 70373395079 56861 Active 2015 Otorrhea, right ear; Note: Date Diagnosed : 04/04/2016 12:31 PM (H92.11) Not Available [facility] 4 02:21:59 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; Note: Date Diagnosed : 01/06/2016 2:07 PM (383.33) Not Available [facility] 4 02:21:51 Asthma 371610453 Active 2016 Other asthma; Note: Date Diagnosed : 11/26/2016 4:58 PM (J45.998) Not Available [facility] 4 02:22:11 Otitis externa of right ear 19545457337 66291 Active 2017 Other otitis externa, right ear; Note: Date Diagnosed : 10/31/2017 2:17 PM (H60.8X1) Not Available [facility] 4 02:22:00 Abrasion of skin of right ear 69720139031 020115 Active 2017 Abrasion of right ear, initial encounter ; Note: Date Diagnosed : 8 3:49 PM (S00.411A ) Not Available [facility] 4 02:21:59 Otorrhea of bilateral ears 40184784423 70337 Active 2016 Otorrhea, bilateral ; Note: Date Diagnosed : 11/26/2016 4:56 PM (H92.13) Not Available [facility] 4 02:22:12 Chronic mastoidit is 53991951 Active 2013 Chronic mastoidit is; Note: Date Diagnosed : 4 4:34 PM (383.1) Not Available [facility] 4 02:21:36 Granuloma tous disorder of the skin and subcutane ous tissue 184589872 Active 2018 Granuloma tous disorder of the skin and subcutane ous tissue, unspecifi ed; Note: Date Diagnosed : 12/18/2018 4:17 PM (L92.9) Not Available [facility] 4 02:21:57 Tobacco user 320615018 Active 2016 Tobacco use NOS; Note: Date Diagnosed : 11/26/2016 4:58 PM (Z72.0) Not Available [facility] 4 02:21:41 Postmasto idectomy complicat ion 40120628 Active 2016 Other disorders following mastoidec harley, right ear; Note: Date Diagnosed : 04/18/2017 3:01 PM (H95.191) Other disorders following mastoidec harley, bilateral ears; Note: Date Diagnosed : 04/04/2016 6:13 PM (H95.193) ; Start Date : 6 Not Available [facility] 4 02:22:08 Dysphonia 51945556 Active 2015 Hoarsenes s; Note: Date Diagnosed : 6 3:35 PM (R49.0) Not Available [facility] 4 02:22:19 Chronic ulcer of skin of right ear 24088979030 855843 Active 2023 MARIO DIAS PA-C [address] [facility],[place] [address], [place], [address] , [place] - [facility] 4 14:40:54 Impacted cerumen of bilateral ears 35886172546 88131 Active 2024 KINGSLEY DELA CRUZ PA-C [address] [facility],[place] [address], [facility] [place] [place], [address] , [place] - [facility] 5 15:10:17 Problem Notes None recorded. Procedures Surgical History Date Name Laterality Status Provider Name and Address Organization Details Recorded Time 5 Debridement of Mastoid Cavity right completed KINGSLEY DELA CRUZ PA-C [address] [facility],[place] [facility] [place], [place], [address], [place] - [facility] 09/24/2024 16:37:26 4 Debridement of Mastoid Cavity right completed MARIO DIAS PA-C [address] [facility],[place] [address], [place], [address], [place] - [facility] 05/15/2024 16:08:26 Debridement of Mastoid Cavity bilat completed MARIO DIAS PA-C [address] [place] [address],[place] [address], [place], [address], [place] - [facility] 04/01/2024 14:37:48 Imaging Results None recorded. Procedure Notes None recorded. Medical Equipment None Reported. Medications Name Sig Start Date Stop Date Status Note LastModified by Organization Details LastModified Time Prescript ion - New active Rx^Rx_20 065917 Not Available Not Available Not Available Singulair 10 mg tablet 1 tablet by mouth 2014 [place] Medicati on ID: 80018 Du ration Value: 30 Brand Name: Singulai r Send Method: E-Prescr ibed Sub s Allowed: subs OK Speci al Instruct ion: Take 1 tablet by mouth every day in the evening Medicati onGeneri cName: Singulai r Not Available Not Available Not Available multivita min tablet 2013 active Medicati on ID: 11632 Br and Name: multivit aguilera Sen d Method: E-Prescr ibed Sub s Allowed: subs OK Medic ationGen ericName : multivit aguilera Not Available Not Available Not Available clotrimaz ole 10 mg sanya 1 sanya in mouth 2015 active Medicati on ID: [id number] D uration Value: 14 Prescri bed By Name: JORDIN Canales nd Name: clotrima zole Sen d Method: E-Prescr ibed Sub s Allowed: subs OK Medic ationGen ericName : clotrima zole Not Available Not Available Not Available loratadin e 10 mg disintegr ating tablet 2015 active Medicati on ID: [id number] B rand Name: loratadi ne Send Method: E-Prescr ibed Sub s Allowed: subs OK Medic ationGen ericName : loratadi ne Not Available Not Available Not Available Lotrisone 1 %-0.05 % topical cream 04/24 completed Medicati on ID: [id number] P rescribe d By Name: JORDIN Dickerson nd Name: Lotrison e Send Method: E-Prescr ibed Sub s Allowed: subs OK Speci al Instruct ion: apply to external right ear bid X 2 weeks Me dication GenericN yoav: Lotrison e Not Available Not Available Not Available Atrovent 0.03 % nasal spray 2 spray into both nostrils 2015 active Medicati on ID: [id number] P rescribe d By Name: JORDIN Canales nd Name: Atrovent Send Method: E-Prescr ibed Sub s Allowed: subs OK Medic ationGen ericName : Atrovent Not Available Not Available Not Available bacitraci n zinc 500 unit/gram topical ointment 2013 [place] Medicati on ID: 28238 Br and Name: bacitrac in zinc Sen d Method: E-Prescr ibed Sub s Allowed: subs OK Medic ationGen ericName : bacitrac in zinc Not Available Not Available Not Available Ciloxan 0.3 % eye drops 4 drop 2019 active Medicati on ID: [id number] D uration Value: 10 Prescri bed By Name: Bebo Olguin MD Brand Name: Ciloxan Send Method: E-Prescr ibed Sub s Allowed: subs OK Speci al Instruct ion: Instill 3-4 drops twice a day into the affected ear. Med icationG enericNa me: Ciloxan Not Available Not Available Not Available omeprazol e 40 mg capsule,d elayed release 09/24 completed Medicati on ID: [id number] D uration Value: 30 Prescri bed By Name: JORDIN Hagan nd Name: omeprazo le Send Method: E-Prescr ibed Sub s Allowed: subs OK Speci al Instruct ion: TAKE ONE CAPSULE EVERY DAY [facility] omeprazo le Not Available Not Available Not Available TobraDex 0.3 %-0.1 % eye ointment 01/05 completed Medicati on ID: [id number] P rescribe d By Name: JORDIN Canales nd Name: TobraDex Send Method: E-Prescr ibed Sub s Allowed: subs OK Speci al Instruct ion: as directed Medicat ionGener icName: TobraDex Not Available Not Available Not Available acetamino phen ER 650 mg tablet,ex tended release active Not Available Not Available Not Available Diflucan 100 mg tablet 1 tablet by mouth 2019 active Medicati on ID: 993763 D uration Value: 7 Prescri bed By Name: Bebo Olguin MD Brand Name: Diflucan Send Method: E-Prescr ibed Sub s Allowed: subs OK Medic ationGen ericName : Diflucan Not Available Not Available Not Available sulfaceta mide sodium 10 % eye drops 2020 active Medicati on ID: 380446 D uration Value: 14 Brand Name: sulfacet amide sodium S end Method: E-Prescr ibed Sub s Allowed: subs OK Speci al Instruct ion: 4 drops to right ear TID x 14 days Med icationG enericNa me: sulfacet amide sodium Not Available Not Available Not Available clotrimaz ole 1 % topical solution 04/24 completed Medicati on ID: 735387 P rescribe d By Name: Janice Hdz [...] mg tablet 2013 active Medicati on ID: 45291 Br and Name: Tylenol Send Method: E-Prescr [...] a day 2022 active Medicati on ID: 546840 D uration Value: 14 Prescri bed By [...] mg capsule 2013 [place] Medicati on ID: 33241 Br and Name: Prozac S end Method: [...] injection solution 2015 active Medicati on ID: [id number] B rand Name: Phenerga n Send Method: E-Prescr ibed Sub s Allowed: subs OK Medic ationGen ericName : Phenerga n Not Available Not Available Not Available neomycin- polymyxin -hydrocor t 3.5 mg-10,000 unit/mL-1 % ear drops,carolyn p 11/20 completed Medicati on ID: [id number] P rescribe d By Name: JORDIN Canales nd Name: neomycin -polymyx in-HC Se nd Method: E-Prescr ibed Sub s Allowed: subs OK Speci al Instruct ion: 8 drops to affected ear BID X 14 days Med icationG enericNa me: neomycin -polymyx in-HC Not Available Not Available Not Available TobraDex 0.3 %-0.1 % eye drops,carolyn pension Apply 2022 active Medicati on ID: [id number] P rescribe d By Name: Manasa Dumont MD Brand Name: TobraDex Send Method: E-Prescr ibed Sub s Allowed: subs OK Speci al Instruct ion: Instill 15-0 drops in the both ears BID for 21 days Med icationG enericNa me: TobraDex Not Available Not Available Not Available Neosporin (eunice-anahy- polym) 3.5 mg-400 unit-5,00 0 unit/gram top ointment 10/02 completed Medicati on ID: [id number] P rescribe d By Name: JORDIN Canales nd Name: Neospori n (eunice-anahy -polym) Send Method: E-Prescr ibed Sub s Allowed: subs VLADISLAV saldaña Instruct ion: Apply to ulcer on right ear BID X 7 days [facility] me: Neospori n (eunice-anahy -polym) Not Available Not Available Not Available neomycin- bacitraci n-poly-HC 3.5 mg-400-10 ,000 unit/g-1 % eye ointment 11/20 completed Medicati on ID: [id number] P rescribe d By Name: JORDIN Canales nd Name: neomycin -bacitra heriberto-poly -HC Send Method: E-Prescr ibed Sub s Allowed: subs VLADISLAV saldaña Instruct ion: To be applied to external ears as directed ; bring ointment to ENT appointm ents [facility] me: neomycin -bacitra heriberto-poly -HC Not Available [...] layed release 2015 active Medicati on ID: [id number] B suzanna Name: omeprazo le Send Method: [...] Updated DateTime 05/15/2024 160.02 cm 29.8 kg/m2 17327.52 g Araseli Guerrero [facility] 05/15/2024 15:41:09 Date Recorded Body height Body mass index (BMI) Body weight Provider Name and Address Organization Details Last Updated DateTime 09/24/2024 152.4 cm 31.6 kg/m2 08114.96 g Meredith Caba [facility] 09/24/2024 14:36:58 Date Recorded Body height Body mass index (BMI) Body weight Provider Name and Address Organization Details Last Updated DateTime 10/15/2024 165.1 cm 27.5 kg/m2 97050.74 g Fay Garcia [facility] 10/15/2024 13:01:16 Social History None recorded. Functional Status None recorded. Mental Status None recorded. Family History Nothing Reported. Medical History No medical history recorded. Past Encounters Encounter ID Performer Location Encounter Start Date Encounter Closed Date Diagnosis/Indication Diagnosis SNOMED-CT Code Diagnosis ICD10 Code Diagnosis Note [id number] MARIO DIAS PA-C [facility] [address] [address] 04/01/2024 13:50:59 04/01/2024 14:31:34 Chronic ulcer of skin of right ear [id number] 0776157 L98.499 Bilateral chronic mastoiditis 8150857661 983464 H70.13 [id number] MARIO DIAS PA-C [facility] [address] [address] 05/15/2024 15:34:07 05/15/2024 15:54:49 Otorrhea of right ear 0398430496 503297 H92.11 Bilateral chronic mastoiditis 4546767933 331634 H70.13 Granulomat ous disorder of the skin and subcutaneous tissue 903423224 L92.9 [id number] KINGSLEY DELA CRUZ PA-C [facility] [address] [address] 09/24/2024 14:22:05 09/24/2024 15:14:59 Otorrhea of right ear 4989028119 569752 H92.11 Impacted c erumen of bilateral ears 3171220641 847941 H61.23 Postmastoi dectomy complication 24822844 H95.199 [id number] KINGSLEY DELA CRUZ PA-C [facility] [address] [address] 10/15/2024 12:48:17 10/15/2024 13:20:39 Otitis externa of right ear 4911280797 445920 H60.8X1 Postmastoi dectomy complication 32754698 H95.199 Health Concerns Section Related Observation LastModified by Organization Detai ls LastModified Time None Recorded Concern Status LastModified by Organization Details LastModified Time None Recorded Advance Directives Directive None Recorded Payers Insurance Date Sequence Insurance Name Policy Number Policy Sommer Covered Member ID Sommer Member ID Guarantor Name 06/05/2024 2 [place]ID[place] [facility] Artis Ruizcalves [id number] Artis Lopez Alfredo 10/15/2024 1 [place] B[place] [employer] Artis J Alfredo [id number] Artis Lopez Alfredo 10/15/2024 2 [place] [facility] Artis Ruizcalves [id number] Artis Ruizcalves Notes Date Note Type Note Provider Name and Address Organization Details Recorded Time 04/01/2024 text/html 59-year-old male with developmental delay presents for bilateral mastoid debridement. 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 The patient has bilateral hearing aids which he wears 11/03. He has been complaining of a sore spot on his right ear. SHAHIDA AMBROCIO MD [address] [place] [address], [address], [facility] - [facility] 04/01/2024 15:09:15 05/15/2024 text/html 59-year-old male with bilateral canal wall down mastoidectomy and developmental delay presents for reevaluation. They have been using mupirocin for localized infection on the pinna. Patient however began to develop otorrhea and bleeding from the right ear. SHAHIDA AMBROCIO MD [address] [place] [address], [place], [address], [place] - [facility] 05/15/2024 16:50:03 09/24/2024 text/html 59-year-old male with developmental delay and bilateral canal wall down mastoidectomy presents for reevaluation of right sided otorrhea. He denies pain. No obvious hearing changes. MELANIA HENAO MD [address] [place] [address],[address], [address], [place] - [facility] 09/25/2024 21:40:00 10/15/2024 text/html 59-year-old male with developmental delay and bilateral canal wall down mastoidectomy presents for reevaluation of right sided otorrhea. No new concerns today. JEANINE LAMAR MD [address] [facility],[place] [address], [place], [address], [facility] - [facility] 10/16/2024 08:07:36
--- OUTSIDE RECORDS SUMMARY | 2025-01-05 14:55 | XMS_ITS | Clinical Summary ---
Author Organization 175 [facility] Address 175 [place] [address] Phone Care Team Providers Care Inspection Machine Tender Name Role Phone Joyce Mitchell MD Primary Care Provider [phone] Allergies No known active allergies Medications ARIPiprazole [...] Severe obesity (BMI 35.0-39. 9) with comorbidity ([facility] V24, [facility] V28) 02/12/2019 Chronic obstructive bronchitis ([facility] V24, [facility] V28) 03/27/2017 MERLE on CPAP 03/27/2017 Tobacco dependence syndrome 03/27/2017 Encounters Date Type Department Care Team Description 12/16/2024 Telephone Pulmonolgy [facility] 175 [facility] [address] [place] [phone] Ellie Roldan MD Medication Problem; provider call back 11/05/2024 10:30 AM EDT Office Visit Orthopedic Surgery [facility] 250 175 [facility] [address] [place] [phone] William Serrano, DPM Dermatophytosis of nail (Primary Dx); Pain in toe of right foot; Pain in toe of left foot; Corns and callosities; Acquired hallux valgus of left foot; Acquired hallux valgus of right foot; Metatarsalgia of both feet; Bilateral femoral artery stenosis ([facility] V24) from Last 3 Months Medical History Medical History Date Comments MERLE on CPAP 03/27/2017 DX:MERLE on CPAP Chronic obstructive bronchit is ([facility] V24, [facility] V28) 03/27/2017 DX:Chronic obstructive bron chitis (HCC) Tobacco dependence syndrome 03/27/2017 DX:T obacco dependence syndrome Severe obesity (BMI 35.0-39. 9) with comorbidity ([facility] V24, [facility] V28) 02/12/2019 DX:Severe obesi ty (BMI 35.0- 39.9) with comorbidity ([facility]) Social History Tobacco Use Types Packs/Day [...] 8:45 AM EDT Office Visit Pulmonolgy - [place] 175 [facility] [address] [place] [address] Ellie Roldan MD 175 [facility] [address] [place] [address] 02/08/2025 8:30 AM EDT Office Visit Orthopedic Surgery - [place] [address] [phone] William Serrano DPM 175 [facility] [address] [place] [address] Health Maintenance Due Date Last Done Comments [...] Insurance [place] - [place]ICARE Care Teams Inspection Machine Tender Relationship Specialty Start Date End Date Joyce Mitchell MD [address] [place] [address] PCP - General Internal Medicine 08/29/17
--- NOTE | 2025-01-05 16:49 | MHC.AU.HA3 ---
Hearing Instrument Follow-Up- Binaural Date of Visit: 01/05/25 Right Ear: Iraj, Model, Color, Serial Number: Adore Pantoja [id number] SN: [id number] Color: Beige Previous SN: [id number] (LOST) Midlevel Provider Repair Warranty: 04/14/2025 Midlevel Provider Loss and Damage Warranty: USED [facility] Service Plan: 04/04/2023 Battery Size: 675 Ground Operations Superintendent/Slim Tube: Earmold/Dome/CShell/SlimTip:Microsonic Shell (Red) Type of Wax Guard: Dispensed By: [facility] Date of Fittin04/04/2022 Left Ear: Iraj, Model, Color, Serial Number: Adore Pantoja [id number] SN: [id number] Color: Beige Previous SN: [id number] (LOST) Midlevel Provider Repair Warranty: 04/14/2025 Midlevel Provider Loss and Damage Warranty: USED [facility] Service Plan: 04/04/2023 Battery Size: 675 Ground Operations Superintendent/Slim Tube: Earmold/Dome/CShell/SlimTip: Microsonic Shell (Red) Type of Wax Guard: Dispensed By: [facility] Date of Fittin04/04/2022 Follow-Up Summary: Artis seen for evaluation. Reports left hearing aid not working. Currently wearing his older Phonak HAs Heaven S III UP. Cleaned aid and earmold, found debris in tube, replaced tubing. Listening check positive. Artis reports improvement. He requested 2 brushes and a battery test engineer, gave those to him. Recommendations: Recommendations: Hearing instrument follow-up or maintenance as needed. Diagnosis Code(s): Primary Diagnosis: H90.6 Mixed Hearing Loss, Bilateral Signature: Provider: Belinda Osorio, [facility]
== END 2025-01-05 13:46 | disposition home or self-care (01) ==
LOC: HO.SH 13:45
PROVIDERS: Visit Provider Internal Medicine
DX: Z01.118 Encounter for examination of ears and hearing with other abnormal findings (principal); Z46.1 Encounter for fitting and adjustment of hearing aid; H90.6 Mixed conductive and sensorineural hearing loss, bilateral
CPT/HCPCS: 92557; 92567; 92592; 99499

== ENCOUNTER 2025-03-19 15:22 | Outpatient (REF) | payer MEDICARE, MEDICAID, SELFPAY ==
--- OUTSIDE RECORDS SUMMARY | 2025-03-19 15:25 | XMS_ITS | Encounter Summary ---
Author Organization [facility] Address [address] [place] [address] Care Team Providers Care Manuscript Editor Name Role Phone Joyce Mitchell MD Primary Care Provider [phone] Reason for Visit * Reason Onset Date Comments Med Refill 02/25/2025 Encounter Details Date Type Department Care Team (Late Contact Info) Description 02/25/2025 Telephone [facility] [address] [phone] Teresa Yao MA Med Refill Social History Tobacco Use Types Packs/Day Years Used Date Smoking Tobacco: Every Day Cigarettes Smokeless Tobacco: Never Comments:Smoking 1 pk daily Alcohol Use Standard Drinks/Week Comments Yes 0 (1 standard drink = 0.6 oz pur e alcohol) Sex and Gender Information Value Date Recorded Sex Assigned at Not on file Legal Sex Male 6:13 PM EST Gender Identity Not on file Sexual Orientation Not on file documented as of this encounter Progress Notes * Teresa Zavaleta MA - 02/25/2025 2:01 PM EDT Nov: 07/13/2025 documented in this encounter Plan of Treatment Upcoming Encounters Date Type Department Care Team (Late Contact Info) Description 07/13/2025 8:45 AM EST [facility] [address] [phone] Ellie Roldan MD 175 [facility] [address] [place], [place] [address] documented as of this encounter Visit Diagnoses Not on filedocumented in this encounter Care Teams Manuscript Editor Relationship Specialty Start Date End Date Joyce Mitchell MD [address] [place] [address] PCP - General Internal Medicine 08/29/17 documented as of this encounter
== END 2025-03-19 15:23 | disposition home or self-care (01) ==
LOC: HO.SH 15:22
PROVIDERS: Visit Provider Internal Medicine
DX: H90.6 Mixed conductive and sensorineural hearing loss, bilateral (principal)
CPT/HCPCS: V5266

== ENCOUNTER 2025-03-23 11:59 | Outpatient (REF) | payer MEDICARE, MEDICAID, SELFPAY ==
--- OUTSIDE RECORDS SUMMARY | 2025-03-23 12:48 | XMS_ITS | Encounter Summary ---
Author Organization [facility] Address [address] [place] [address] Care Team Providers Care Anesthesiology Fellow Name Role Phone Joyce Mitcehll MD Primary Care Provider [phone] Reason for Visit * Reason Onset Date Comments Med Refill 02/25/2025 Encounter Details Date Type Department Care Team (Late Contact Info) Description 02/25/2025 Telephone [facility] [address] [phone] Teresa Yao MA Med Refill Social History [...] Description 07/13/2025 8:45 AM EST [facility] [address] [phone] Ellie Roldan MD 175 [facility] 200 [place], [place] [phone] documented as of this encounter Visit Diagnoses Not on filedocumented in this encounter Care Teams Anesthesiology Fellow Relationship Specialty Start Date End Date Joyce Mitchell MD [address] [place] [address] PCP - General Internal Medicine 08/29/17 documented as of this encounter
--- NOTE | 2025-03-23 15:26 | MHC.AU.HA3 ---
Hearing Instrument Follow-Up- Binaural Date of Visit: 03/23/25 Right Ear: Make, Model, Color, Serial Number: Adore Pantoja [id number] SN: [id number] Color: Beige Previous SN: [id number] (LOST) User Experience Designer Repair Warranty: 04/14/2025 User Experience Designer Loss and Damage Warranty: USED [facility] Service Plan: 04/04/2023 Battery Size: 675 Earmold/Dome/CShell/SlimTip:Microsonic Shell (Red) Dispensed By: [facility] Date of Fittin04/04/2022 Left Ear: Make, Model, Color, Serial Number: Adore Pantoja [id number] SN: [id number] Color: Beige Previous SN: [id number] (LOST) User Experience Designer Repair Warranty: 04/14/2025 User Experience Designer Loss and Damage Warranty: USED [facility] Service Plan: 04/04/2023 Battery Size: 675 Earmold/Dome/CShell/SlimTip: Microsonic Shell (Red) Dispensed By: [facility] Date of Fittin04/04/2022 Follow-Up Summary: Old right NAIK dropped off ([id number]) c/o . Tube clogged. Cleaned aid (1), cleaned earmold (1), re-tubed earmold (1), [place] [address] 3 units. Listening check positive. Recommendations: Recommendations: Hearing instrument follow-up or maintenance as needed. Diagnosis Code(s): Primary Diagnosis: H90.6 Mixed Hearing Loss, Bilateral Signature: Provider: Belinda Osorio, [facility]
== END 2025-03-23 12:00 | disposition home or self-care (01) ==
LOC: HO.HAP 11:59
PROVIDERS: Visit Provider Internal Medicine
DX: Z13.89 Encounter for screening for other disorder (principal)

== ENCOUNTER 2025-03-26 09:28 | Outpatient (REF) | payer MEDICARE, MEDICAID, SELFPAY ==
--- OUTSIDE RECORDS SUMMARY | 2025-03-26 09:32 | XMS_ITS | Encounter Summary ---
Author Organization [facility] Address [address] [place] [address] Care Team Providers Care Assembly Line Upholsterer Name Role Phone Joyce Mitchell MD Primary Care Provider [phone] Reason for Visit * Reason Onset Date Comments Med Refill 02/25/2025 Encounter Details Date Type Department Care Team (Late Contact Info) Description 02/25/2025 Telephone [facility] 175 [facility] 200 [place] [phone] Teresa Yao MA Med Refill Social History [...] Department Care Team (Late Contact Info) Description 06/01/2025 1:45 PM EDT Office Visit Orthopedic Surgery - [place] [address] 175 [facility] 250 [place] [phone] William Serrano, DPM 175 [facility] [address] [place] [address] 07/13/2025 8:45 AM EST Office Visit Pulmonolgy - [place] [address] [phone] Ellie Roldan MD [address] [phone] documented as of this encounter Visit Diagnoses Not on filedocumented in this encounter Care Teams Assembly Line Upholsterer Relationship Specialty Start Date End Date Joyce Mitchell MD [address] [place] [address] PCP - General Internal Medicine 08/29/17 documented as of this encounter
== END 2025-03-26 09:29 | disposition home or self-care (01) ==
LOC: HO.SH 09:28
PROVIDERS: Visit Provider Internal Medicine
DX: Z01.118 Encounter for examination of ears and hearing with other abnormal findings (principal); H90.6 Mixed conductive and sensorineural hearing loss, bilateral
CPT/HCPCS: 92592; 99499

== ENCOUNTER 2025-06-17 11:50 | Outpatient (REF) | payer MEDICARE, MEDICAID, SELFPAY ==
--- OUTSIDE RECORDS SUMMARY | 2025-06-17 14:54 | XMS_ITS | Clinical Summary ---
Author Organization 175 [facility] Address 175 [place] [address] Phone Care Team Providers Care Application Lead Name Role Phone Joyce Mitchell MD Primary Care Provider [phone] Allergies No known active allergies Medications ARIPiprazole [...] 30 DAYS. 8.5 g 1 4 Active inhalational spacing device (Aerochamber MV) inhaler Use as instructed 1 each 5 05/25/20 26 Active Symbicort 160-4.5 mcg/actuation inhaler TAKE 2 PUFFS EVERY 12 HOURS RINSE AFTER USE 10.2 g 10 5 Active Active Problems Problem Noted Date Diagnosed Date Severe obesity (BMI 35.0-39. 9) with comorbidity ([facility] V24, [facility] V28) 02/12/2019 Chronic obstructive bronchitis ([facility] V24, [facility] V28) 03/27/2017 MERLE on CPAP 03/27/2017 Tobacco dependence syndrome 03/27/2017 Encounters Date Type Department Care Team Description 05/25/2025 Telephone Pulmonology - [place] 175 [facility] 200 [place] [phone] Ellie Roldan MD 05/21/2025 Telephone Lung Screening Program - [place] 299 [facility] 410 [place] [phone] Carolee Garcia MD 03/30/2025 Telephone Pulmonology - [place] 175 [facility] 200 [place] [phone] Ellie Roldan MD from Last 3 Months Medical History Medical History Date Comments MERLE on CPAP 03/27/2017 DX:MERLE on CPAP Chronic obstructive bronchit is ([facility] V24, [facility] V28) 03/27/2017 DX:Chronic obstructive bron chitis (HCC) Tobacco dependence syndrome 03/27/2017 DX:T obacco dependence syndrome Severe obesity (BMI 35.0-39. 9) with comorbidity ([facility] V24, [facility] V28) 02/12/2019 DX:Severe obesi ty (BMI 35.0- 39.9) with comorbidity ([facility]) Social History Tobacco Use Types Packs/Day Years Used Date Smoking Tobacco: Every Day Cigarettes Smokeless Tobacco: Never Tobacco Cessation:Ready to Q uit: Not Asked; Counseling Given: Not Answered Comments:Smoking 1 pk daily Alcohol Use Standard Drinks/Week Comments Yes 0 (1 standard drink = 0.6 oz pur e alcohol) Sex and Gender Information Value Date Recorded Sex Assigned at Not on file Legal Sex Male 6:13 PM EST Gender Identity Not on file Sexual Orientation Not on file Obstetrics History Last Filed Vital Signs Vital Sign Reading Time Taken Comments Blood Pressure 132/72 01/07/2025 9:01 AM EDT Pulse 68 01/07/2025 9:01 AM EDT Temperature 36.2 C (97.1 F) 01/07/2025 9:01 AM EDT Respiratory Rate 20 01/07/2025 9:01 AM EDT Oxygen Saturation 96% 01/07/2025 9:01 AM EDT Inhaled Oxygen Concentration - - Weight 74.6 kg (164 lb 6.4 oz) 01/07/2025 9:01 A M EDT Height 152.4 cm (5') 01/07/2025 9:01 AM EDT Body Mass Index 32.11 01/07/2025 9:01 AM EDT Plan of Treatment Upcoming Encounters Date Type Department Care Team (Late st Contact Info) Description 06/24/2025 2:30 PM EST Appointment [facility] CT Scan [address] [place] [address] 07/13/2025 8:45 AM EST Office Visit Pulmonology - [place] 175 [facility] [address] [place] [phone] Ellie Roldan MD [address] [place] [phone] Health Maintenance Due Date Last Done Comments Colorectal Cancer Screening: Colonoscopy 1963 DTaP,Tdap,and Td Vaccines (1 - Tdap) 1982 RSV Immunization Adult Patients (1 - Risk 50-74 years 1-dose series) 2013 Zoster Vaccines (1 of 2) 2013 Cholesterol Screening (Lipid Panel) 07/28/2022 HIV Screening 07/28/2022 Hepatitis C Screening 07/28/2022 Medicare Annual Wellness Visit 07/28/2022 Social Influencers of Health Screening 07/28/2022 Depression Screening 08/19/2024 COVID-19 Vaccine ( season) 2025 06/20/2023, 07/24/2022, 12/15/2021, Additional history exists Influenza Vaccine (#1) 2025 , 05/15/2021, 05/12/2019, Additional history exists Pneumococcal Vaccine: 50+ Years Completed 07/01/2024 HIB Vaccines Aged Out No [...] on patient's age to complete this topic Procedures Procedure Name Priority Date/Time Associated Diagnosis Comments HOME SLEEP TEST Routine 03/24/2025 4:47 PM EDT from Last 3 Months Results * Home sleep test (03/24/2025 4:47 PM EDT) us Historical Provider [facility] ORDERABLES F inal Result from Last 3 Months Insurance MEDICAID - [place] MEDICARE Care Teams Application Lead Relationship Specialty Start Date End Date Joyce Mitchell MD [address] [place] [address] PCP - General Internal Medicine 08/29/17
--- OUTSIDE RECORDS SUMMARY | 2025-06-17 14:54 | XMS_ITS | Encounter Summary ---
Author Organization [facility] Address [address] [place] [address] Care Team Providers Care Box Estimator Name Role Phone Joyce Mitchell MD Primary Care Provider [phone] Reason for Visit * Reason Onset Date Comments Med Refill 02/25/2025 Encounter Details Date Type Department Care Team (Late Contact Info) Description [facility] [address] [phone] Teresa Yao MA Social History Tobacco Use Types Packs/Day Years [...] Department Care Team (Late Contact Info) Description 06/24/2025 2:30 PM EST Appointment [facility] CT Scan [address] [place] [phone] 07/13/2025 8:45 AM EST [facility] 175 [facility] 200 [place] [phone] Ellie Roldan MD [address] [place] [phone] documented as of this encounter Visit Diagnoses Not on filedocumented in this encounter Care Teams Box Estimator Relationship Specialty Start Date End Date Joyce Mitchell MD [address] [place] [address] PCP - General Internal Medicine 08/29/17 documented as of this encounter
--- NOTE | 2025-06-17 15:29 | MHC.AU.HA3 ---
Hearing Instrument Follow-Up- Binaural Date of Visit: 06/17/25 Physical Science Teacher Used: Right Ear: Iraj, Model, Color, Serial Number: Adore [id number] SN: [id number] Color: Beige Previous SN: [id number] (LOST) Stores Assistant Repair Warranty: 04/14/2025 Stores Assistant Loss and Damage Warranty: USED [facility] Service Plan: 04/04/2023 Battery Size: 675 Earmold/Dome/CShell/SlimTip:Microsonic Shell (Red) Dispensed By: [facility] Date of Fittin04/04/2022 Left Ear: Iraj, Model, Color, Serial Number: Adore [id number] SN: [id number] Color: Beige Previous SN: [id number] (LOST) Stores Assistant Repair Warranty: 04/14/2025 Stores Assistant Loss and Damage Warranty: USED [facility] Service Plan: 04/04/2023 Battery Size: 675 Earmold/Dome/CShell/SlimTip: Microsonic Shell (Red) Dispensed By: [facility] Date of Fittin04/04/2022 Follow-Up Summary: Old HAs/EMs, Phonak Haeven S III UP BTEs, dropped off reporting . Tubes hard, discolored, occluded with wax. Cleaned HAs (2). Cleaned EMs (2). Replaced tubing (2). 79109 x6. Replaced microphone covers. Ran through dehumidifier. Listening check demonstrated HAs amplifying clearly. To front office for product picker. Recommendations: Hearing instrument follow-up or maintenance as needed. Please contact our clinic with any questions or concerns. Diagnosis Code(s): Primary Diagnosis: H90.6 Mixed Hearing Loss, Bilateral Signature: Provider: Belinda Wyatt, [facility]
== END 2025-06-17 11:51 | disposition home or self-care (01) ==
LOC: HO.HAP 11:50
PROVIDERS: Visit Provider Internal Medicine
DX: Z46.1 Encounter for fitting and adjustment of hearing aid (principal); H90.6 Mixed conductive and sensorineural hearing loss, bilateral
CPT/HCPCS: 92593; 99499

== ENCOUNTER 2025-08-05 11:13 | Outpatient (REF) | payer MEDICARE, MEDICAID, SELFPAY ==
--- OUTSIDE RECORDS SUMMARY | 2025-08-05 14:46 | XMS_ITS | Data Portability ---
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 Lab None recorded. Referral None recorded. Procedures None recorded. Surgeries None recorded. Imaging None recorded. Medication Orders ciprofloxac in 0.3 %-dexametha sone 0.1 % ear drops,suspe nsion 2024 025 [facility], [address] [place] [address], [address], [id number], 5 15:19:57 Ciprodex 0.3 %-0.1 % ear drops,suspe nsion 2023 024 [facility], [address] [place] [address], [address], [id number], 4 15:53:11 mupirocin 2 % topical ointment 2023 024 [facility], [address] [place] [address], [address], [id number], 4 14:47:53 Patient TargetsNo targets recorded. Patient InstructionsNo instructions recorded. Reason for Referral None Reported. Problems Name Problem SNOMED Code Status Onset Date Resolution Date Notes Provider Name and Address Organization Details Recorded Time Chronic mastoidit is 21814991 Active 2013 Chronic mastoidit is; Note: Date Diagnosed : 4 4:34 PM (383.1) Not Available [facility] 4 02:21:36 Bilateral chronic mastoidit is 41770897861 38733 Active 2015 Chronic mastoidit is, bilateral ; Note: Date Diagnosed : 08/23/2015 4:50 PM (H70.13) Not Available [facility] 4 02:21:38 Chronic rhinitis 53514890 Active 2015 Chronic rhinitis; Note: Date Diagnosed : 01/06/2016 2:18 PM (J31.0) Not Available [facility] 4 02:22:11 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; Note: Date Diagnosed : 01/06/2016 2:07 PM (383.33) Not Available [facility] 4 02:21:51 Otorrhea of right ear 82066720766 47132 Active 2015 Otorrhea, right ear; Note: Date Diagnosed : 04/04/2016 12:31 PM (H92.11) Not Available [facility] 4 02:21:59 Mixed conductiv e and sensorine ural hearing loss, bilateral 179710269 Active 2015 Mixed hearing loss, bilateral ; Note: Date Diagnosed : 05/10/2015 3:04 PM (389.22) ; Start Date : 5 Mixed conductiv e and sensorine ural hearing loss, bilateral ; Note: Date Diagnosed : 05/03/2016 4:16 PM (H90.6) Not Available [facility] 4 02:22:13 Dysphonia 55343908 Active 2015 Hoarsenes s; Note: Date Diagnosed : 6 3:35 PM (R49.0) Not Available [facility] 4 02:22:19 Stomatiti s 39613645 Active 2016 Oral thrush; Note: Date Diagnosed : 11/26/2016 4:56 PM (B37.0) Not Available [facility] 4 02:21:53 Candidias is of mouth 02674720 Active 2016 Oral thrush; Note: Date Diagnosed : 11/26/2016 4:56 PM (B37.0) Not Available [facility] 4 02:21:53 Asthma 193070083 Active 2016 Other asthma; Note: Date Diagnosed : 11/26/2016 4:58 PM (J45.998) Not Available [facility] 4 02:22:11 Otorrhea of bilateral ears 11878111582 53187 Active 2016 Otorrhea, bilateral ; Note: Date Diagnosed : 11/26/2016 4:56 PM (H92.13) Not Available [facility] 4 02:22:12 Tobacco user 813199836 Active 2016 Tobacco use NOS; Note: Date Diagnosed : 11/26/2016 4:58 PM (Z72.0) Not Available [facility] 4 02:21:41 Otorrhea of left ear 11169344106 53500 Active 2016 Otorrhea, left ear; Note: Date Diagnosed : 12/12/2016 11:02 AM (H92.12) Not Available [facility] 4 02:22:07 Postmasto idectomy complicat ion 62039670 Active 2016 Other disorders following mastoidec harley, right ear; Note: Date Diagnosed : 04/18/2017 3:01 PM (H95.191) Other disorders following mastoidec harley, bilateral ears; Note: Date Diagnosed : 04/04/2016 6:13 PM (H95.193) ; Start Date : 6 Not Available [facility] 4 02:22:08 Gastroeso phageal reflux disease without esophagit is 332912772 Active 2016 Gastro-es ophageal reflux disease without esophagit is; Note: Date Diagnosed : 7 10:17 AM (K21.9) Not Available [facility] 4 02:22:16 Otitis externa of right ear 26732255217 89838 Active 2017 Other otitis externa, right ear; Note: Date Diagnosed : 10/31/2017 2:17 PM (H60.8X1) Not Available [facility] 4 02:22:00 Abrasion of skin of right ear 23787684522 939500 Active 2017 Abrasion of right ear, initial encounter ; Note: Date Diagnosed : 8 3:49 PM (S00.411A ) Not Available [facility] 4 02:21:59 Granuloma tous disorder of the skin and subcutane ous tissue 061780416 Active 2018 Granuloma tous disorder of the skin and subcutane ous tissue, unspecifi ed; Note: Date Diagnosed : 12/18/2018 4:17 PM (L92.9) Not Available [facility] 4 02:21:57 Chronic right mastoidit is 28685316961 08656 Active 2021 Chronic mastoidit is, right ear; Note: Date Diagnosed : 2 10:14 AM (H70.11) Not Available [facility] 4 02:21:56 Chronic ulcer of skin of right ear 70189037991 800087 Active 2023 MARIO DIAS PA-C [address] [facility] [place] [address], [place], [address] , [place] - [facility] 4 14:40:54 Impacted cerumen of bilateral ears 39347040687 14617 Active 2024 KINGSLEY DELA CRUZ PA-C [address] [facility], [place], [address] , [place] - [facility] 5 15:10:17 Problem Notes None recorded. Procedures Surgical History Date Name Laterality Status Provider Name and Address Organization Details Recorded Time 5 Debridement of Mastoid Cavity bilat cancelled KINGSLEY DELA CRUZ PA-C [address] [facility] [place],[address] [facility], [place], [address], [place] - [facility] 03/09/2025 21:04:49 5 Debridement of Mastoid Cavity right completed KINGSLEY DELA CRUZ PA-C [address], [place], [address], [place] - [facility] 09/24/2024 16:37:26 4 Debridement of Mastoid Cavity right completed MARIO DIAS PA-C [address] [place],[address], [place], [address], [facility] - [facility] 05/15/2024 16:08:26 4 Debridement of Mastoid Cavity bilat completed MARIO DIAS PA-C [address], [place], [address], [facility] - [facility] 04/01/2024 14:37:48 Imaging Results None recorded. Procedure Notes None recorded. Medical Equipment None Reported. Medications Name Sig Start Date Stop Date Status Note LastModified by Organization Details LastModified Time Prescript ion - New active Rx^Rx_20 [id number] Not Available Not Available Not Available Singulair 10 mg tablet 1 tablet by mouth 2014 active Medicati on ID: 33776 Du ration Value: 30 Brand Name: Brandy r Send Method: E-Prescr ibed Sub s Allowed: subs OK Speci al Instruct ion: Take 1 tablet by mouth every day in the evening Medicati onGeneri cName: Singulai r Not Available Not Available Not Available multivita min tablet 2013 active Medicati on ID: [id number] Br and Name: multivit aguilera Sen d Method: E-Prescr ibed Sub s Allowed: subs OK Medic ationGen ericName : multivit aguilera Not Available Not Available Not Available clotrimaz ole 10 mg sanya 1 sanya in mouth 2015 active Medicati on ID: [id number] D uration Value: 14 Prescri bed By Name: JORDIN Canales nd Name: clotrima zole Edward d Method: E-Prescr ibed Sub s Allowed: subs OK Medic ationGen ericName : clotrima zole Not Available Not Available Not Available loratadin e 10 mg disintegr ating tablet 2015 active Medicati on ID: [id number] B rand Name: loratadi ne Send Method: E-Prescr ibed Sub s Allowed: subs OK Medic ationGen ericName : loratadi ne Not Available Not Available Not Available Lotrisone 1 %-0.05 % topical cream 04/24 completed Medicati on ID: [id number] P rescribe d By Name: JORDIN Dickerson nd Name: Lotrison e Send Method: E-Prescr ibed Sub s Allowed: subs OK Speci al Instruct ion: apply to external right ear bid X 2 weeks Me dication GenericN yoav: Lotrison e Not Available Not Available Not Available Atrovent 0.03 % nasal spray 2 spray into both nostrils 2015 active Medicati on ID: [id number] P rescribe d By Name: JORDIN Canales nd Name: Atrovent Send Method: E-Prescr ibed Sub s Allowed: subs OK Medic ationGen ericName : Atrovent Not Available Not Available Not Available bacitraci n zinc 500 unit/gram topical ointment 2013 active Medicati on ID: [id number] Br and Name: bacitrac in zinc Sen d Method: E-Prescr ibed Sub s Allowed: subs OK Medic ationGen ericName : bacitrac in zinc Not Available Not Available Not Available Ciloxan 0.3 % eye drops 4 drop 2019 active Medicati on ID: 436798 D uration Value: 10 Prescri bed By Name: Bebo Olguin MD Brand Name: Ciloxan Send Method: E-Prescr ibed Sub s Allowed: subs OK Speci al Instruct ion: Instill 3-4 drops twice a day into the affected ear. Med icationG enericNa me: Ciloxan Not Available Not Available Not Available omeprazol e 40 mg capsule,d elayed release 09/24 completed Medicati on ID: [id number] D uration Value: 30 Prescri bed By Name: JORDIN Hagan nd Name: omeprazo le Send Method: E-Prescr ibed Sub s Allowed: subs OK Speci al Instruct ion: TAKE ONE CAPSULE EVERY DAY Medi cationGe nericNam e: omeprazo le Not Available Not Available Not Available TobraDex 0.3 %-0.1 % eye ointment 01/05 completed Medicati on ID: [id number] P rescribe d By Name: JORDIN Canales nd Name: TobraDex Send Method: E-Prescr ibed Sub s Allowed: subs OK Speci al Instruct ion: as directed Medicat ionGener icName: TobraDex Not Available Not Available Not Available acetamino phen ER 650 mg tablet,ex tended release active Not Available Not Available Not Available Diflucan 100 mg tablet 1 tablet by mouth 2019 active Medicati on ID: [id number] D uration Value: 7 Prescri bed By Name: Bebo Olguin MD Brand Name: Diflucan Send Method: E-Prescr ibed Sub s Allowed: subs OK Medic ationGen ericName : Diflucan Not Available Not Available Not Available sulfaceta mide sodium 10 % eye drops 2020 active Medicati on ID: 856945 D uration Value: 14 Brand Name: sulfacet amide sodium S end Method: E-Prescr ibed Sub s Allowed: subs OK Speci al Instruct ion: 4 drops to right ear TID x 14 days Med icationG enericNa me: sulfacet amide sodium Not Available Not Available Not Available clotrimaz ole 1 % topical solution 04/24 completed Medicati on ID: [id number] P rescribe d By Name: Janice Hdz [...] mg tablet 2013 [place] Medicati on ID: 56902 Br and Name: Tylenol Send Method: E-Prescr [...] a day 2022 active Medicati on ID: 367700 D uration Value: 14 Prescri bed By [...] mg capsule 2013 active Medicati on ID: [id number] Br and Name: Prozac S end Method: [...] injection solution 2015 active Medicati on ID: [id number] B rand Name: Phenerga n Send Method: E-Prescr ibed Sub s Allowed: subs OK Medic ationGen ericName : Phenerga n Not Available Not Available Not Available neomycin- polymyxin -hydrocor t 3.5 mg-10,000 unit/mL-1 % ear drops,carolyn p 11/20 completed Medicati on ID: [id number] P rescribe d By Name: JORDIN Canales nd Name: neomycin -polymyx in-HC Se nd Method: E-Prescr ibed Sub s Allowed: subs OK Speci al Instruct ion: 8 drops to affected ear BID X 14 days Med icationG enericNa me: neomycin -polymyx in-HC Not Available Not Available Not Available TobraDex 0.3 %-0.1 % eye drops,carolyn pension Apply 2022 active Medicati on ID: [id number] P rescribe d By Name: Manasa Dumont MD Brand Name: TobraDex Send Method: E-Prescr ibed Sub s Allowed: subs OK Speci al Instruct ion: Instill 15-0 drops in the both ears BID for 21 days Med icationG enericNa me: TobraDex Not Available Not Available Not Available Neosporin (eunice-anahy- polym) 3.5 mg-400 unit-5,00 0 unit/gram top ointment 10/02 completed Medicati on ID: [id number] P rescribe d By Name: JORDIN Canales nd Name: Neospori n (eunice-anahy -polym) Send Method: E-Prescr ibed Sub s Allowed: subs OK Speci al Instruct ion: Apply to ulcer on right ear BID X 7 days Med [facility] me: Neospori n (eunice-anahy -polym) Not Available Not Available Not Available neomycin- bacitraci n-poly-HC 3.5 mg-400-10 ,000 unit/g-1 % eye ointment 11/20 completed Medicati on ID: [id number] P rescribe d By Name: JORDIN Canales nd Name: neomycin -bacitra heriberto-poly -HC Send Method: E-Prescr ibed Sub s Allowed: subs OK Speci al Instruct ion: To be applied to external ears as directed ; bring ointment to ENT appointm ents [facility] me: neomycin -bacitra heriberto-poly -HC Not Available [...] layed release 2015 active Medicati on ID: [id number] B rand Name: omeprazo le Send Method: E-Prescr ibed [...] Updated DateTime 09/24/2024 152.4 cm 31.6 kg/m2 60620.96 g Meredith Caba [facility] 09/24/2024 14:36:58 Date Recorded Body height Body mass index (BMI) Body weight Provider Name and Address Organization Details Last Updated DateTime 10/15/2024 165.1 cm 27.5 kg/m2 77677.74 g Fay Garcia [facility] 10/15/2024 13:01:16 Date Recorded Body height Body mass index (BMI) Body weight Provider Name and Address Organization Details Last Updated DateTime 05/15/2024 160.02 cm 29.8 kg/m2 00407.52 g Araseli Cesar [facility] 05/15/2024 15:41:09 Social History None recorded. Functional Status None recorded. Mental Status None recorded. Family History Nothing Reported. Medical History No medical history recorded. Past Encounters Encounter ID Performer Location Encounter Start Date Encounter Closed Date Diagnosis/Indication Diagnosis SNOMED-CT Code Diagnosis ICD10 Code Diagnosis IMO Codes Diagnosis Note [id number] MARIO DIAS PA-C [facility] [address] [address] 04/01/2024 13:50:59 04/01/2024 14:31:34 Chronic ulcer of skin of right ear 9723302743 5502513 L98.499 Bilateral chronic mastoiditis 3366724749 651515 H70.13 [id number] MARIO DIAS PA-C [facility] [address] [address] 05/15/2024 15:34:07 05/15/2024 15:54:49 Otorrhea of right ear 0730839857 986940 H92.11 Bilateral chronic mastoiditis 3208329069 310088 H70.13 Granulomat ous disorder of the skin and subcutaneous tissue 066748999 L92.9 [id number] KINGSLEY DELA CRUZ PA-C [facility] [address] [place] [address] 09/24/2024 14:22:05 09/24/2024 15:14:59 Otorrhea of right ear 6435885986 957141 H92.11 Impacted c erumen of bilateral ears 4881896781 774681 H61.23 Postmastoi dectomy complication 29324184 H95.199 [id number] KINGSLEY DELA CRUZ PA-C [facility] [address] [place] [address] 10/15/2024 12:48:17 10/15/2024 13:20:39 Otitis externa of right ear 5448596995 622429 H60.8X1 Postmastoi dectomy complication 23195831 H95.199 Health Concerns Section Related Observation LastModified by Organization Detai ls LastModified Time None Recorded Concern Status LastModified by Organization Details LastModified Time None Recorded Advance Directives Directive None Recorded Payers Insurance Date Sequence Insurance Name Policy Number Policy Sommer Covered Member ID Sommer Member ID Guarantor Name 01/22/2025 2 MEDICAID-[place]: [facility] Artis J Alfredo [id number] Artiscourtney Fuentes 03/10/2025 1 MEDICARE B-CO: [employer] Artis Fuentes [id number] Artis Ruizcalves 03/10/2025 2 MEDICAID-[place]: [facility] Atriscourtney RuizAlfredo [id number] Artiscourtney Fuentes Notes Date Note Type Note Provider Name and Address Organization Details Recorded Time 04/01/2024 text/html ROS as noted in the [facility] 59-year-old male with developmental delay presents for bilateral mastoid debridement. 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 The patient has bilateral hearing aids which he wears 11/03. He has been complaining of a sore spot on his right ear. SHAHIDA AMBROCIO MD [address] [place] [address], [address], [facility] - [facility] 04/01/2024 15:09:15 05/15/2024 text/html ROS as noted in the [facility] 59-year-old male with bilateral canal wall down mastoidectomy and developmental delay presents for reevaluation. They have been using mupirocin for localized infection on the pinna. Patient however began to develop otorrhea and bleeding from the right ear. SHAHIDA AMBROCIO MD [address] [facility],[address], [address], [facility] - [facility] 05/15/2024 16:50:03 09/24/2024 text/html ROS as noted in the [facility] 59-year-old male with developmental delay and bilateral canal wall down mastoidectomy presents for reevaluation of right sided otorrhea. He denies pain. No obvious hearing changes. MELANIA HENAO MD [address] [facility],[address], [address], [facility] 09/25/2024 21:40:00 10/15/2024 text/html ROS as noted in the [facility] 59-year-old male with developmental delay and bilateral canal wall down mastoidectomy presents for reevaluation of right sided otorrhea. No new concerns today. JEANINE LAMAR MD [address] [facility],[address], [address], [facility] - [facility] 10/16/2024 08:07:36
--- OUTSIDE RECORDS SUMMARY | 2025-08-05 14:46 | XMS_ITS | Encounter Summary ---
Author Organization [facility] Address [address] [place] [address] Care Team Providers Care Magnetic Healer Name Role Phone Joyce Mitchell MD Primary Care Provider [phone] Reason for Visit * Reason Onset Date Comments Med Refill 02/25/2025 Encounter Details Date Type Department Care Team (Late Contact Info) Description 02/25/2025 Telephone [facility] [address] [phone] Teresa Yao [place] Social History Tobacco Use [...] Department Care Team (Late Contact Info) Description 10/07/2025 3:30 PM EST Appointment [facility] CT Scan [address] [place] [address] 01/13/2026 9:45 AM EDT Office Visit [facility] 175 [facility] [address] [place] [phone] Ellie Roldan MD [address] [place] [phone] documented as of this encounter Visit Diagnoses Not on filedocumented in this encounter Care Teams Magnetic Healer Relationship Specialty Start Date End Date Joyce Mitchell MD [address] [place] [address] PCP - General Internal Medicine 08/29/17 documented as of this encounter
--- OUTSIDE RECORDS SUMMARY | 2025-08-05 14:46 | XMS_ITS | Data Portability ---
Author Organization [place] - [facility] Address [address] [place] [phone] Care Team Providers Care Consumer Loan Specialist Name Role Phone IDANIA LOPEZ Primary [...] I have accessed patient records on the [employer]. This information was pertinent in [...] dipstick 2018 019 [facility], [address] [place], [address], 9 12:26:39 rapid flu (A+B) 2018 019 [facility], [address] [place], [address], 9 12:26:13 rapid strep group A, throat 2018 019 [facility], [address] [place], [address], 9 12:26:24 Referral None recorded. Procedures None recorded. Surgeries None recorded. Imaging None recorded. Medication Orders doxycycli ne hyclate 100 mg capsule 2018 019 INTERFACE [id number], [address] [place], [address], 9 16:49:22 doxycycli ne hyclate 100 mg capsule 2018 019 [email or web address] Not available 0 18:14:00 sulfameth oxazole 800 mg-trimet hoprim 160 mg tablet 2018 019 lsaloio [id number], [address] [place], [address], 9 16:42:36 Patient TargetsNo targets recorded. Patient Instructions Encounter Date Encounter Id Patient Instructions Last Modified By Organization Details Last Modified Time 10/08/2018 [id number] Thank you for calling [facility] for your urgent care needs. You were [...] 1 cup of warm water. Take an yrlw-ocm-yhunill pain medicine, such as acetaminophen (Tylenol), ibuprofen (Advil, Motrin), or naproxen (Aleve). Read and follow all instructions on the label. Be careful when taking hqzw-snh-rcnbhxh cold or flu medicines and Tylenol at [...] soup, may help decrease throat pain. Use gqro-yqr-nnxgdfl throat lozenges to soothe pain. Regular cough [...] expected. Care instructions adapted under license by [facility]. This care instruction is for use with your licensed healthcare professional. If you have questions about a medical condition or this instruction, always ask your healthcare professional. [employer] disclaims any warranty or liability for your use of this information. Please seek care immediately if you develop any of the following symptoms: 1. Uncontrolled fever of at least 101 F or 38.4 C 2. Throat pain that is severe or [...] in your condition between 8am-10pm, please call ERN at [phone] to help navigate your care. Not available 10/10/2018 08:33:03 02/15/2019 [id number] skin abscess: ca re instructions Not available 02/15/2019 11:47:26 Please f/u woth your PCP if worsening or no improvement after antibiotic completion Thank you for your visit with [facility] today. You were seen today for treatment [...] in your condition between 8am-10pm, please call ERN at [phone] to help navigate your care. Not available 02/15/2019 11:48:00 Reason for Referral None Reported. Results Created Date Observation Date Name Description Value Unit Range Abnormal Flag Note LastModifiedBy Organization Detail LastModifiedTime 10/08/19 19 10/08/2018 urina lysis , dipst ick Appearance clear Not Available [facility] [address] [place], [address], 10/08/2018 12:25:34 10/08/1910/08/2018 urina lysis , dipst ick Color hart Not Available [facility] [address] [place], [address], 10/08/2018 12:25:34 10/08/1910/08/2018 urina lysis , dipst ick Glucose negati ve Not Available [facility] [address] [place], [address], 10/08/2018 12:25:34 10/08/1910/08/2018 urina lysis , dipst ick Bilirubin negati ve Not Available [facility] [address] [place], [address], 10/08/2018 12:25:34 10/08/1910/08/2018 urina lysis , dipst ick Ketones NEG Not Available [facility] [address] [place], [address], 10/08/2018 12:25:34 10/08/1910/08/2018 urina lysis , dipst ick Sp. [place] 1.015 Not Available [facility] [address] [place], [address], 10/08/2018 12:25:34 10/08/1910/08/2018 urina lysis , dipst ick Blood + Not Available [facility] [address] [place], [address], 10/08/2018 12:25:34 10/08/1910/08/2018 urina lysis , dipst ick pH 7.0 Not Available [facility] [address] [place], [address], 10/08/2018 12:25:34 10/08/1910/08/2018 urina lysis , dipst ick Protein positi ve Not Available [facility] [address] [place], [address], 10/08/2018 12:25:34 10/08/19 19 10/08/2018 urina lysis , dipst ick Urobilirubin negati ve Not Available [facility] [address] [place], [address], 10/08/2018 12:25:34 10/08/19 19 10/08/2018 urina lysis , dipst ick Nitrites NEG Not Available [facility] [address] [place], [address], 10/08/2018 12:25:34 10/08/19 19 10/08/2018 urina lysis , dipst ick Leukocytes NEG Not Available [facility] [address] [place], [address], 10/08/2018 12:25:34 10/08/19 19 10/08/2018 rapid strep group A, throa t Strep negati ve Not Available [facility] [address] [place], [address], 10/08/2018 12:20:21 10/08/19 19 10/08/2018 rapid flu (A+B) Flu A negati ve Not Available [facility] [address] [place], [address], 10/08/2018 12:19:43 10/08/19 19 10/08/2018 rapid flu (A+B) Flu B negati ve Not Available [facility] [address] [place], [address], 10/08/2018 12:19:43 Result Notes None recorded. Medical [...] Not Available Not Available Vitals Date Recorded Heart rate Respiratory rate Oxygen saturation Body temperature Systolic And Diastolic Provider Name and Address Organization Details Last Updated DateTime 9 64 /min 20 /min 97 % 98.3 [degF] 122/70 mm[Hg] Not Available [facility] 9 11:56:37 Date Recorded Heart rate Body temperature Respiratory rate Oxygen saturation Systolic And Diastolic Provider Name and Address Organization Details Last Updated DateTime 9 62 /min 97 [degF] 20 /min 98 % 102/58 mm[Hg] Not Available [facility] 9 11:40:59 Date Recorded Respiratory rate Body temperature Oxygen saturation Heart rate Systolic And Diastolic Provider Name and Address Organization Details Last Updated DateTime 9 20 /min 98.1 [degF] 100 % 79 /min 124/74 mm[Hg] Not Available [facility] 9 16:46:10 Social History Question Answer Notes LastModified by Organizat ion Details LastModified Time Tobacco Smoking Status Current Every Day Smoker TONYA LAM NP [address], [place], [address], [place] [facility] 10/08/2018 12:03:10 Fall Risk: [...] Coronary Artery Disease N High Cholesterol N Cancer N Pulmonary Embolism N Stroke N Hypertension N Asthma Y COPD Y Depression N Kidney Disease N Past Encounters Encounter ID Performer Location Encounter Start Date Encounter Closed Date Diagnosis/Indication Diagnosis SNOMED-CT Code Diagnosis ICD10 Code Diagnosis IMO Codes Diagnosis Note [id number] TONYA LAM NP [facility] [address] [place] [address] 10/08/2018 11:46:51 10/10/2018 19:11:14 Has a sore throat 980140240 J02.9 Dysuria 19675682 R30.0 Acute pharyngitis 686608 003 J02.9 Chronic ob structive pulmonary disease 90434957 J44.9 Heavy ciga rette smoker (20-39 cigs/day) 793588648 Z72.0 [id number] Grace Christian NP [facility] [address] [place] [address] 02/15/2019 11:35:00 02/17/2019 12:48:23 Abscess of skin and/or subcutaneous tissue 07453758 L02.91 [id number] ARTURO HERNANDEZ [facility] [address] [place] [address] 08/15/2019 16:41:09 08/17/2019 15:53:20 Paronychia of finger 859489495 L03.019 Health Concerns Section Related Observation LastModified by Organization Detai ls LastModified Time None Recorded Concern Status LastModified by Organization Details LastModified Time None Recorded Advance Directives Directive None Recorded Payers Insurance Date Sequence Insurance Name Policy Number Policy Sommer Covered Member ID Sommer Member ID Guarantor Name 08/15/2019 2 [place]ID[place] [facility] Artis Fuentes [id number] Artis Fuentes 08/15/2019 1 [place]ARE B[place] [facility] [email or web address] Artis Fuentes [id number] Artis Fuentes 10/08/2018 1 *SELF PAY* Artis Fuentes [id number] Artis Fuentes Notes Date Note Type Note Provider Name and Address Organization Details Recorded Time 10/08/2018 text/html General HPI Template - DHReported by Patient Artis Fuentes is a 53 y/o male w/PMH of [...] PO at 0900. TONYA LAM NP [address], [place], [address], [place] [facility] 10/10/2018 08:38:02 02/15/2019 text/html [...] Denies insect bites. Grace Christian NP [address], [place], [address], [place] [facility] 02/15/2019 12:33:19 08/15/2019 text/html 54-year-old male presents for evaluation finger concerned. He reports about a week ago he had cut his fingernails and cut one of them too short. States the area has been red and swollen and painful since then. States has used nothing to alleviate. Denies fever, chest pain, shortness of breath. ARTURO HERNANDEZ [address] [place], [address], [place] [facility] 08/15/2019 17:07:29
--- OUTSIDE RECORDS SUMMARY | 2025-08-05 14:46 | XMS_ITS | Clinical Summary ---
Author Organization [facility] Address [address] [place] [address] Phone Care Team Providers Care Historic Sites Registrar Name Role Phone Joyce Mitchell MD Primary Care Provider [phone] Allergies No known active allergies Medications ARIPiprazole [...] Noted Date Diagnosed Date Severe obesity (BMI 35.0-39.9) with comorbidity 02/12/2019 Chronic obstructive bronchitis 03/27/2017 MERLE on CPAP 03/27/2017 Tobacco dependence syndrome 03/27/2017 Encounters Date Type Department Care Team Description 07/13/2025 8:45 AM EST Office Visit Pulmonology - [place] [address] [phone] Ellie Roldan MD Chronic obstructive bronchitis (CMS/HCC V24, CMS/HCC V28) (Primary Dx); MERLE (obstructive sleep apnea); Tobacco dependence syndrome; Pulmonary nodule 07/02/2025 Telephone Lung Screening Program - [place] [address] [phone] [place] 06/24/2025 2:18 PM EST - 06/24/2025 11:59 PM EST Hospital Encounter [facility] CT Scan [address] [place] [phone] Multiple pulmonary nodules Discharge Disposition: Home or Self Care 05/25/2025 Telephone Pulmonology - [place] [address] [phone] Ellie Roldan MD 05/21/2025 Telephone Lung Screening Program - [place] [address] [phone] Carolee Garcia MD from Last 3 Months Medical History Medical History Date Comments MERLE on CPAP 03/27/2017 DX:MERLE on CPAP Chronic obstructive bronchit is (CMS/HCC V24, CMS/HCC V28) 03/27/2017 DX:Chronic obstructive bron chitis (HCC) Tobacco dependence syndrome 03/27/2017 DX:T obacco dependence syndrome Severe obesity (BMI 35.0-39. 9) with comorbidity (CMS/HCC V24, CMS/[facility] V28) 02/12/2019 DX:Severe obesi ty (BMI 35.0- 39.9) with comorbidity (HCC) Social History Tobacco Use Types Packs/Day Years [...] on file Sexual Orientation Not on file Last Filed Vital Signs Vital Sign Reading Time Taken Comments Blood Pressure 108/73 07/13/2025 8:55 AM EST Pulse 76 07/13/2025 8:55 AM EST Temperature 36.4 C (97.6 F) 07/13/2025 8:55 AM EST Respiratory Rate 16 07/13/2025 8:55 AM EST Oxygen Saturation 98% 07/13/2025 8:55 AM EST Inhaled Oxygen Concentration - - Weight 80.1 kg (176 lb 9.6 oz) 07/13/2025 8:55 A M EST Height 167.6 cm (5' 6 ) 07/13/2025 8:55 AM EST Body Mass Index 28.5 07/13/2025 8:55 AM EST Plan of Treatment Upcoming Encounters Date Type Department Care Team (Late st Contact Info) Description 10/07/2025 3:30 PM EST Appointment [facility] CT Scan [address] [place] [phone] 01/13/2026 9:45 AM EDT Office Visit Pulmonology - [place] [address] [facility] [address] [place] [phone] Ellie Roldan MD [address] [place] [phone] Health Maintenance Due Date Last Done [...] Procedure Name Priority Date/Time Associated Diagnosis Comments CT CHEST WO CONTRAST (LUNG-RADS F/U) Routine 06/24/2025 3:03 PM EST Multiple pulmonary nodules from Last 3 Months Results * CT Chest wo Contrast (Lung-RADS F/U) (06/24/2025 3:03 PM EST) Anatomical Region Laterality Modality Body Computed Tomogra phy 07/02/2025 8:42 AM EST Impressions 07/02/2025 8:53 AM EST There has been interval resolution of the solid, semisolid and groundglass opacities in the lower lobes. However, interval development of areas of consolidation and solid and semisolid nodules in the right upper lobe. There are a series of previous studies which have demonstrated intermittent development of similar opacities bilaterally. Strict criteria suggests continued short interval follow-up to explain the new opacities in the right upper lobe LUNG RADS: Lung-RADS 0: INCOMPLETE (prior exam; unable to evaluate; suggestive of inflammatory/infectious process S Modifier (Significant or Potentially Significant Findings): None present No suspicious nonpulmonary findings. RECOMMENDATIONS: [address]; PET/CT may be considered if there is a greater than or equal to 8 mm solid nodule or solid component -------- FINAL REPORT -------- Dictated By: Wicho Baum Dictated Date: 07/02/2025 08:42 ET Assigned Physician: Wicho Baum Reviewed and Electronically Signed By: Wicho Baum Signed Date: 07/02/2025 08:53 ET Workstation ID: [id number] Transcribed By: Self Edit Transcribed Date: 07/02/2025 08:42 ET Narrative 07/02/2025 8:53 AM EST EXAMINATION: CT CHEST WITHOUT CONTRAST LUNG CANCER SCREENING, LOW DOSE CLINICAL INFORMATION: Abnormal lung cancer screening CT. Evaluate for interval changes. Solid and semisolid and groundglass opacities in the lower lobes on previous lung cancer screening CT. COMPARISON: Portions of a previous lung cancer screening CT 02/26/25 TECHNIQUE: Multidetector CT. Examination of the chest. Examination of the chest without IV contrast. Reformatting in the coronal and sagittal planes. Device: Survatureer DLP: 173 mGy-cm CTDI: 4.89 Dose optimization was performed including the use of low-dose iterative reconstruction technique with automatic exposure control based on patient size. Type of contrast: None Volume of IV contrast: None Volume of contrast discarded: 0 mL FINDINGS: LUNG: No abnormality of the trachea or mainstem bronchi. LUNG NODULES: There has been interval resolution of the multiple solid, semisolid and groundglass nodules in the lower lobes. There is some motion artifact limiting detail. There are now areas of consolidation or solid nodules in the periphery of the right upper lobe which were not present 02/26/25, or 02/17/24 or 07/09/23. The largest solid component measures 0.8 cm (3/53). OTHER PULMONARY: There is some small and moderate sized airway thickening. No honeycomb formation. MEDIASTINUM: There are no enlarged mediastinal or hilar lymph nodes. No suspicious abnormalities of the esophagus. CARDIAC: There is no cardiac mass. No significant pericardial fluid or thickening. No coronary calcifications demonstrated. VASCULAR: There is no thoracic aortic aneurysm. The main pulmonary artery is normal caliber. PLEURA: There is no pleural fluid or pneumothorax. AXILLA/CHEST WALL: There are no enlarged axillary lymph nodes. No chest wall mass demonstrated. There is gynecomastia. VISUALIZED UPPER ABDOMEN: No suspicious abnormality on limited assessment of the visualized upper abdomen. MUSCULOSKELETAL: No suspicious focal bony lesion demonstrated. Extensive bridging osteophytes and/or syndesmophytes. Convex right thoracic curve. Tete MORRIS IMG CT PROCEDURES Final Resul t from Last 3 Months Insurance MEDICARE [place]ICAID [place] [employer] Care Teams Historic Sites Registrar Relationship Specialty Start Date End Date Joyce Mitchell MD [address] [place] [address] PCP - General Internal Medicine 08/29/17
== END 2025-08-05 11:14 | disposition home or self-care (01) ==
LOC: HO.HAP 11:13
PROVIDERS: Visit Provider Internal Medicine
DX: Z46.1 Encounter for fitting and adjustment of hearing aid (principal); H90.6 Mixed conductive and sensorineural hearing loss, bilateral
CPT/HCPCS: 92593